=== PATIENT | male | born 1955 | race Caucasian/White ===

== ENCOUNTER 2017-11-01 00:23 | Day surgery (SDC) | payer OTHER ==
[~2017-11-01 00:23] MED LIST: ACET325 PO; ACET500 PO; ASPI325 PO; ASPI81CH PO; ATOR20 PO; Bactrim Ds Tab1 EACH PO; Biotin1 MG PO; CARV3.125; CARV6.25 PO; CEFU500T30 PO; CEPH500 PO; CHRO200 PO; CILO100; CILO100 PO; CIPR500 PO; CLOP75 PO; Cilostazol50 MG PO; FAMO40 PO; GABA300 PO; GABA400 PO; GABA800; GABA800 PO; GEMF600 PO; GLYB2.5 PO; HYDACE5 PO; HYDR1TAB94 PO; INSDET100 SC; LAVAP17G PO; LEVFLO500; LISI5 PO; Lisinopril2.5 MG PO; METF500; METF500 PO; METF500C PO; METO25ER PO; METR500; METR500 PO; ONDA4ODT MM; ONE DAILY COMP1 EACH PO; OXYACE5T PO; OXYC15ER PO; OXYC30 PO; PANT40 PO; PREG150 PO; Prinivil10 MG PO; SIME80CH PO; STOOL SOFTENER50 MG PO; SUCR1 PO; SULTRIDS PO; Simvastatin20 MG PO; Ultram50 MG PO; ZINC15 PO
== END 2017-11-01 22:49 | disposition home or self-care (01) ==
LOC: WOUND 00:23
DX: Z48.00 Encounter for change or removal of nonsurgical wound dressing (principal); L97.823 Non-pressure chronic ulcer of other part of left lower leg with necrosis of muscle; I70.242 Atherosclerosis of native arteries of left leg with ulceration of calf; F17.210 Nicotine dependence, cigarettes, uncomplicated
CPT/HCPCS: G0463

== ENCOUNTER 2017-11-06 11:00 | Day surgery (SDC) | payer OTHER | END 2017-11-06 13:30 | disposition home or self-care (01) | LOC: WOUND 11:00 | DX: Z48.00 Encounter for change or removal of nonsurgical wound dressing (principal); L97.823 Non-pressure chronic ulcer of other part of left lower leg with necrosis of muscle; I70.242 Atherosclerosis of native arteries of left leg with ulceration of calf; F17.208 Nicotine dependence, unspecified, with other nicotine-induced disorders | CPT/HCPCS: G0463 ==

== ENCOUNTER 2017-11-12 14:53 | Day surgery (SDC) | payer OTHER | END 2017-11-12 16:03 | disposition home or self-care (01) | LOC: WOUND 14:53 | PROC: 0HBLXZZ Excision of Left Lower Leg Skin, External Approach (ICD-10-PCS; principal; 2017-11-12) | DX: Z48.00 Encounter for change or removal of nonsurgical wound dressing (principal); L97.823 Non-pressure chronic ulcer of other part of left lower leg with necrosis of muscle; I70.242 Atherosclerosis of native arteries of left leg with ulceration of calf; F17.208 Nicotine dependence, unspecified, with other nicotine-induced disorders; E11.622 Type 2 diabetes mellitus with other skin ulcer ==

== ENCOUNTER 2017-11-19 14:58 | Day surgery (SDC) | payer OTHER | END 2017-11-19 22:55 | disposition home or self-care (01) | LOC: WOUND 14:58 | DX: Z48.00 Encounter for change or removal of nonsurgical wound dressing (principal); E11.622 Type 2 diabetes mellitus with other skin ulcer; L97.823 Non-pressure chronic ulcer of other part of left lower leg with necrosis of muscle; I70.242 Atherosclerosis of native arteries of left leg with ulceration of calf; F17.210 Nicotine dependence, cigarettes, uncomplicated | CPT/HCPCS: G0463 ==

== ENCOUNTER 2017-11-26 00:06 | Day surgery (SDC) | payer OTHER | END 2017-11-26 23:08 | disposition home or self-care (01) | LOC: LAB 00:06 | DX: Z48.00 Encounter for change or removal of nonsurgical wound dressing (principal); L97.823 Non-pressure chronic ulcer of other part of left lower leg with necrosis of muscle; I70.242 Atherosclerosis of native arteries of left leg with ulceration of calf; F17.210 Nicotine dependence, cigarettes, uncomplicated; E11.622 Type 2 diabetes mellitus with other skin ulcer | CPT/HCPCS: G0463 ==

== ENCOUNTER 2017-12-03 00:04 | Day surgery (SDC) | payer OTHER | END 2017-12-03 13:19 | disposition home or self-care (01) | LOC: WOUND 00:04 | DX: Z48.00 Encounter for change or removal of nonsurgical wound dressing (principal); E11.622 Type 2 diabetes mellitus with other skin ulcer; I70.242 Atherosclerosis of native arteries of left leg with ulceration of calf; L97.823 Non-pressure chronic ulcer of other part of left lower leg with necrosis of muscle; F17.210 Nicotine dependence, cigarettes, uncomplicated; E78.2 Mixed hyperlipidemia | CPT/HCPCS: 87070; 87077; 87186; 87205; G0463 ==

== ENCOUNTER 2017-12-10 00:12 | Day surgery (SDC) | payer OTHER | END 2017-12-10 12:14 | disposition home or self-care (01) | LOC: WOUND 00:12 | PROC: 0HBLXZZ Excision of Left Lower Leg Skin, External Approach (ICD-10-PCS; principal; 2017-12-10) | DX: Z48.00 Encounter for change or removal of nonsurgical wound dressing (principal); E11.622 Type 2 diabetes mellitus with other skin ulcer; L97.823 Non-pressure chronic ulcer of other part of left lower leg with necrosis of muscle; I70.242 Atherosclerosis of native arteries of left leg with ulceration of calf; F17.210 Nicotine dependence, cigarettes, uncomplicated | CPT/HCPCS: G0463 ==

== ENCOUNTER 2017-12-17 00:10 | Day surgery (SDC) | payer OTHER | END 2017-12-17 10:38 | disposition home or self-care (01) | LOC: WOUND 00:10 | DX: Z48.00 Encounter for change or removal of nonsurgical wound dressing (principal); E11.622 Type 2 diabetes mellitus with other skin ulcer; L97.823 Non-pressure chronic ulcer of other part of left lower leg with necrosis of muscle; F17.210 Nicotine dependence, cigarettes, uncomplicated | CPT/HCPCS: G0463 ==

== ENCOUNTER 2017-12-24 00:05 | Day surgery (SDC) | payer OTHER | END 2017-12-24 12:42 | disposition home or self-care (01) | LOC: WOUND 00:05 | PROC: 2W1RX6Z Compression of Left Lower Leg using Pressure Dressing (ICD-10-PCS; principal; 2017-12-24) | DX: Z48.00 Encounter for change or removal of nonsurgical wound dressing (principal); L97.823 Non-pressure chronic ulcer of other part of left lower leg with necrosis of muscle; I70.242 Atherosclerosis of native arteries of left leg with ulceration of calf; F17.210 Nicotine dependence, cigarettes, uncomplicated | CPT/HCPCS: G0463 ==

== ENCOUNTER 2017-12-27 00:25 | Day surgery (SDC) | payer OTHER | END 2017-12-27 23:14 | disposition home or self-care (01) | LOC: WOUND 00:25 | PROC: 2W1RX6Z Compression of Left Lower Leg using Pressure Dressing (ICD-10-PCS; principal; 2017-12-27) | DX: Z48.00 Encounter for change or removal of nonsurgical wound dressing (principal); L97.823 Non-pressure chronic ulcer of other part of left lower leg with necrosis of muscle; I70.242 Atherosclerosis of native arteries of left leg with ulceration of calf; F17.208 Nicotine dependence, unspecified, with other nicotine-induced disorders ==

== ENCOUNTER 2017-12-31 00:18 | Day surgery (SDC) | payer OTHER | END 2017-12-31 12:36 | disposition home or self-care (01) | LOC: WOUND 00:18 | PROC: 2W1RX6Z Compression of Left Lower Leg using Pressure Dressing (ICD-10-PCS; principal; 2017-12-31) | DX: Z48.00 Encounter for change or removal of nonsurgical wound dressing (principal); L97.823 Non-pressure chronic ulcer of other part of left lower leg with necrosis of muscle; I70.242 Atherosclerosis of native arteries of left leg with ulceration of calf; F17.210 Nicotine dependence, cigarettes, uncomplicated | CPT/HCPCS: G0463 ==

== ENCOUNTER 2018-01-08 03:29 | Day surgery (SDC) | payer OTHER | END 2018-01-08 23:22 | disposition home or self-care (01) | LOC: WOUND 03:29 | PROC: 2W1RX6Z Compression of Left Lower Leg using Pressure Dressing (ICD-10-PCS; principal; 2018-01-08) | DX: E11.622 Type 2 diabetes mellitus with other skin ulcer (principal); L97.823 Non-pressure chronic ulcer of other part of left lower leg with necrosis of muscle; I70.242 Atherosclerosis of native arteries of left leg with ulceration of calf; F17.210 Nicotine dependence, cigarettes, uncomplicated | CPT/HCPCS: G0463 ==

== ENCOUNTER 2018-01-11 12:50 | Day surgery (SDC) | payer OTHER | END 2018-01-11 22:59 | disposition home or self-care (01) | LOC: WOUND 12:50 | PROC: 2W1RX6Z Compression of Left Lower Leg using Pressure Dressing (ICD-10-PCS; principal; 2018-01-11) | DX: I70.242 Atherosclerosis of native arteries of left leg with ulceration of calf (principal); L97.823 Non-pressure chronic ulcer of other part of left lower leg with necrosis of muscle; F17.208 Nicotine dependence, unspecified, with other nicotine-induced disorders ==

== ENCOUNTER 2018-01-15 10:06 | Day surgery (SDC) | payer OTHER | END 2018-01-15 15:51 | disposition home or self-care (01) | LOC: WOUND 10:06 | PROC: 2W1RX6Z Compression of Left Lower Leg using Pressure Dressing (ICD-10-PCS; principal; 2018-01-15) | DX: E11.622 Type 2 diabetes mellitus with other skin ulcer (principal); L97.823 Non-pressure chronic ulcer of other part of left lower leg with necrosis of muscle; I70.242 Atherosclerosis of native arteries of left leg with ulceration of calf; F17.210 Nicotine dependence, cigarettes, uncomplicated | CPT/HCPCS: 99406; G0463 ==

== ENCOUNTER 2018-01-22 00:35 | Day surgery (SDC) | payer OTHER | END 2018-01-22 11:15 | disposition home or self-care (01) | LOC: WOUND 00:35 | PROC: 2W1RX6Z Compression of Left Lower Leg using Pressure Dressing (ICD-10-PCS; principal; 2018-01-22) | DX: Z48.00 Encounter for change or removal of nonsurgical wound dressing (principal); E11.622 Type 2 diabetes mellitus with other skin ulcer; L97.823 Non-pressure chronic ulcer of other part of left lower leg with necrosis of muscle; I70.242 Atherosclerosis of native arteries of left leg with ulceration of calf; F17.208 Nicotine dependence, unspecified, with other nicotine-induced disorders ==

== ENCOUNTER 2018-01-29 14:15 | Day surgery (SDC) | payer OTHER | END 2018-01-29 22:38 | disposition home or self-care (01) | LOC: WOUND 14:15 | PROC: 0HBLXZZ Excision of Left Lower Leg Skin, External Approach (ICD-10-PCS; principal; 2018-01-29) | DX: Z48.01 Encounter for change or removal of surgical wound dressing (principal); I70.242 Atherosclerosis of native arteries of left leg with ulceration of calf; E11.622 Type 2 diabetes mellitus with other skin ulcer; L97.822 Non-pressure chronic ulcer of other part of left lower leg with fat layer exposed; F17.208 Nicotine dependence, unspecified, with other nicotine-induced disorders | CPT/HCPCS: G0463 ==

== ENCOUNTER 2018-02-05 14:08 | Day surgery (SDC) | payer OTHER | END 2018-02-05 22:46 | disposition home or self-care (01) | LOC: WOUND 14:08 | DX: S81.802A Unspecified open wound, left lower leg, initial encounter (principal); E11.22 Type 2 diabetes mellitus with diabetic chronic kidney disease; L97.823 Non-pressure chronic ulcer of other part of left lower leg with necrosis of muscle; I70.242 Atherosclerosis of native arteries of left leg with ulceration of calf | CPT/HCPCS: G0463 ==

== ENCOUNTER 2018-02-12 10:46 | Day surgery (SDC) | payer OTHER | END 2018-02-12 11:43 | disposition home or self-care (01) | LOC: WOUND 10:46 | DX: Z48.00 Encounter for change or removal of nonsurgical wound dressing (principal); L97.823 Non-pressure chronic ulcer of other part of left lower leg with necrosis of muscle; I70.242 Atherosclerosis of native arteries of left leg with ulceration of calf; F17.208 Nicotine dependence, unspecified, with other nicotine-induced disorders | CPT/HCPCS: G0463 ==

== ENCOUNTER 2018-03-05 10:50 | Day surgery (SDC) | payer OTHER | END 2018-03-05 23:36 | disposition home or self-care (01) | LOC: WOUND 10:50 | PROC: 0HBLXZZ Excision of Left Lower Leg Skin, External Approach (ICD-10-PCS; principal; 2018-03-05) | PROC: 2W1RX6Z Compression of Left Lower Leg using Pressure Dressing (ICD-10-PCS; principal; 2018-03-05) | DX: L97.821 Non-pressure chronic ulcer of other part of left lower leg limited to breakdown of skin (principal); T81.89XA Other complications of procedures, not elsewhere classified, initial encounter; F17.208 Nicotine dependence, unspecified, with other nicotine-induced disorders ==

== ENCOUNTER 2018-03-07 11:36 | Day surgery (SDC) | payer OTHER | END 2018-03-07 23:18 | disposition home or self-care (01) | LOC: WOUND 11:36 | PROC: 2W1RX6Z Compression of Left Lower Leg using Pressure Dressing (ICD-10-PCS; principal; 2018-03-07) | DX: S81.802A Unspecified open wound, left lower leg, initial encounter (principal); L97.823 Non-pressure chronic ulcer of other part of left lower leg with necrosis of muscle; I70.242 Atherosclerosis of native arteries of left leg with ulceration of calf; F17.210 Nicotine dependence, cigarettes, uncomplicated ==

== ENCOUNTER 2018-03-12 10:30 | Day surgery (SDC) | payer OTHER | END 2018-03-12 22:47 | disposition home or self-care (01) | LOC: WOUND 10:30 | PROC: 2W1RX6Z Compression of Left Lower Leg using Pressure Dressing (ICD-10-PCS; principal; 2018-03-12) | DX: E11.622 Type 2 diabetes mellitus with other skin ulcer (principal); L97.823 Non-pressure chronic ulcer of other part of left lower leg with necrosis of muscle; F17.210 Nicotine dependence, cigarettes, uncomplicated | CPT/HCPCS: 82947; G0463 ==

== ENCOUNTER 2018-04-02 11:00 | Day surgery (SDC) | payer OTHER | END 2018-04-02 12:09 | disposition home or self-care (01) | LOC: WOUND 11:00 | PROC: 2W1RX6Z Compression of Left Lower Leg using Pressure Dressing (ICD-10-PCS; principal; 2018-04-02) | DX: E11.622 Type 2 diabetes mellitus with other skin ulcer (principal); L97.823 Non-pressure chronic ulcer of other part of left lower leg with necrosis of muscle; F17.210 Nicotine dependence, cigarettes, uncomplicated | CPT/HCPCS: G0463 ==

== ENCOUNTER 2018-04-16 11:00 | Day surgery (SDC) | payer OTHER | END 2018-04-16 12:27 | disposition home or self-care (01) | LOC: WOUND 11:00 | PROC: 0HBLXZZ Excision of Left Lower Leg Skin, External Approach (ICD-10-PCS; principal; 2018-04-16) | DX: S81.802A Unspecified open wound, left lower leg, initial encounter (principal); F17.210 Nicotine dependence, cigarettes, uncomplicated; I70.242 Atherosclerosis of native arteries of left leg with ulceration of calf | CPT/HCPCS: G0463 ==

== ENCOUNTER → 2018-04-30 | Outpatient (CLI) | payer OTHER | LOC: LAB SHORT 07:00 → LAB 07:00 | DX: K52.9 Noninfective gastroenteritis and colitis, unspecified (principal) | CPT/HCPCS: 87493 ==

== ENCOUNTER 2018-05-07 11:30 | Day surgery (SDC) | payer OTHER | END 2018-05-07 12:42 | disposition home or self-care (01) | LOC: WOUND | DX: Z48.00 Encounter for change or removal of nonsurgical wound dressing (principal); I70.242 Atherosclerosis of native arteries of left leg with ulceration of calf; F17.210 Nicotine dependence, cigarettes, uncomplicated; S81.802A Unspecified open wound, left lower leg, initial encounter | CPT/HCPCS: G0463 ==

== ENCOUNTER 2018-05-17 10:24 | Day surgery (SDC) | payer OTHER | END 2018-05-17 12:49 | disposition home or self-care (01) | LOC: WOUND 10:24 | DX: I70.242 Atherosclerosis of native arteries of left leg with ulceration of calf (principal); E11.622 Type 2 diabetes mellitus with other skin ulcer; L97.223 Non-pressure chronic ulcer of left calf with necrosis of muscle; F17.218 Nicotine dependence, cigarettes, with other nicotine-induced disorders; R60.0 Localized edema; Z59.0 Homelessness ==

== ENCOUNTER 2018-05-21 10:30 | Day surgery (SDC) | payer OTHER | END 2018-05-21 11:10 | disposition home or self-care (01) | LOC: WOUND 10:30 | PROC: 2W1RX6Z Compression of Left Lower Leg using Pressure Dressing (ICD-10-PCS; principal; 2018-05-21) | DX: S81.802A Unspecified open wound, left lower leg, initial encounter (principal); E11.9 Type 2 diabetes mellitus without complications; F17.210 Nicotine dependence, cigarettes, uncomplicated ==

== ENCOUNTER 2018-06-14 13:30 | Day surgery (SDC) | payer OTHER | END 2018-06-14 13:54 | disposition home or self-care (01) | LOC: ATC 13:30 | DX: S81.802A Unspecified open wound, left lower leg, initial encounter (principal); E11.9 Type 2 diabetes mellitus without complications; I10 Essential (primary) hypertension | CPT/HCPCS: 99211 ==

== ENCOUNTER 2018-06-18 00:46 | Day surgery (SDC) | payer OTHER | END 2018-06-18 10:22 | disposition home or self-care (01) | LOC: ATC 00:46 | DX: S81.802A Unspecified open wound, left lower leg, initial encounter (principal); E03.9 Hypothyroidism, unspecified | CPT/HCPCS: 99211 ==

== ENCOUNTER 2018-06-25 00:06 | Day surgery (SDC) | payer OTHER | END 2018-06-25 10:38 | disposition home or self-care (01) | LOC: ATC 00:06 | DX: S81.802A Unspecified open wound, left lower leg, initial encounter (principal); E03.9 Hypothyroidism, unspecified; E78.2 Mixed hyperlipidemia; I10 Essential (primary) hypertension; E11.9 Type 2 diabetes mellitus without complications | CPT/HCPCS: 99214 ==

== ENCOUNTER 2018-06-28 00:15 | Day surgery (SDC) | payer OTHER | END 2018-06-28 22:46 | disposition home or self-care (01) | LOC: ATC 00:15 | DX: Z48.00 Encounter for change or removal of nonsurgical wound dressing (principal); S81.802A Unspecified open wound, left lower leg, initial encounter | CPT/HCPCS: 99214 ==

== ENCOUNTER 2018-07-01 01:41 | Day surgery (SDC) | payer OTHER | END 2018-07-01 10:07 | disposition home or self-care (01) | LOC: ATC 01:41 | DX: Z48.00 Encounter for change or removal of nonsurgical wound dressing (principal); S81.802A Unspecified open wound, left lower leg, initial encounter | CPT/HCPCS: 99214 ==

== ENCOUNTER 2018-07-04 00:13 | Day surgery (SDC) | payer OTHER | END 2018-07-04 10:05 | disposition home or self-care (01) | LOC: ATC 00:13 | DX: S81.802A Unspecified open wound, left lower leg, initial encounter (principal); E11.51 Type 2 diabetes mellitus with diabetic peripheral angiopathy without gangrene; E03.9 Hypothyroidism, unspecified; E78.2 Mixed hyperlipidemia; K52.9 Noninfective gastroenteritis and colitis, unspecified; F17.210 Nicotine dependence, cigarettes, uncomplicated; I25.10 Atherosclerotic heart disease of native coronary artery without angina pectoris; I10 Essential (primary) hypertension | CPT/HCPCS: 99214 ==

== ENCOUNTER 2018-07-12 00:20 | Day surgery (SDC) | payer OTHER | END 2018-07-12 22:58 | disposition home or self-care (01) | LOC: ATC 00:20 | DX: S81.802A Unspecified open wound, left lower leg, initial encounter (principal); E03.9 Hypothyroidism, unspecified | CPT/HCPCS: 99213 ==

== ENCOUNTER 2018-07-16 | Day surgery (SDC) | payer OTHER | END 2018-07-16 22:54 | disposition home or self-care (01) | LOC: ATC | DX: S81.802A Unspecified open wound, left lower leg, initial encounter (principal); E11.9 Type 2 diabetes mellitus without complications | CPT/HCPCS: 99213 ==

== ENCOUNTER 2018-07-19 00:07 | Day surgery (SDC) | payer OTHER | END 2018-07-19 16:09 | disposition home or self-care (01) | LOC: ATC 00:07 | DX: S81.802A Unspecified open wound, left lower leg, initial encounter (principal); E11.51 Type 2 diabetes mellitus with diabetic peripheral angiopathy without gangrene; E11.42 Type 2 diabetes mellitus with diabetic polyneuropathy | CPT/HCPCS: 99214 ==

== ENCOUNTER 2018-07-23 14:47 | Day surgery (SDC) | payer OTHER | END 2018-07-23 22:46 | disposition home or self-care (01) | LOC: ATC 14:47 | DX: S81.802A Unspecified open wound, left lower leg, initial encounter (principal); X58.XXXA Exposure to other specified factors, initial encounter; E11.42 Type 2 diabetes mellitus with diabetic polyneuropathy; E11.51 Type 2 diabetes mellitus with diabetic peripheral angiopathy without gangrene; E03.9 Hypothyroidism, unspecified; M81.0 Age-related osteoporosis without current pathological fracture; E78.2 Mixed hyperlipidemia; F17.210 Nicotine dependence, cigarettes, uncomplicated; E55.9 Vitamin D deficiency, unspecified; N40.0 Benign prostatic hyperplasia without lower urinary tract symptoms; G89.4 Chronic pain syndrome; M54.5 Low back pain; I25.10 Atherosclerotic heart disease of native coronary artery without angina pectoris; I10 Essential (primary) hypertension; Z79.84 Long term (current) use of oral hypoglycemic drugs ==

== ENCOUNTER 2018-07-26 11:30 | Day surgery (SDC) | payer OTHER | END 2018-07-26 14:00 | disposition home or self-care (01) | LOC: WOUND 11:30 | DX: L97.822 Non-pressure chronic ulcer of other part of left lower leg with fat layer exposed (principal); E78.2 Mixed hyperlipidemia; I73.9 Peripheral vascular disease, unspecified; E55.9 Vitamin D deficiency, unspecified; G89.4 Chronic pain syndrome; I25.10 Atherosclerotic heart disease of native coronary artery without angina pectoris; G62.9 Polyneuropathy, unspecified; Z95.818 Presence of other cardiac implants and grafts | CPT/HCPCS: G0463 ==

== ENCOUNTER 2018-07-30 09:00 | Day surgery (SDC) | payer OTHER | END 2018-07-30 10:50 | disposition home or self-care (01) | LOC: WOUND 09:00 | DX: L97.822 Non-pressure chronic ulcer of other part of left lower leg with fat layer exposed (principal); E78.2 Mixed hyperlipidemia; I73.9 Peripheral vascular disease, unspecified; Z95.818 Presence of other cardiac implants and grafts; E55.9 Vitamin D deficiency, unspecified; G89.4 Chronic pain syndrome; G62.9 Polyneuropathy, unspecified; I25.10 Atherosclerotic heart disease of native coronary artery without angina pectoris ==

== ENCOUNTER 2018-08-02 00:17 | Day surgery (SDC) | payer OTHER | END 2018-08-02 22:41 | disposition home or self-care (01) | LOC: WOUND 00:17 | DX: L97.822 Non-pressure chronic ulcer of other part of left lower leg with fat layer exposed (principal); I87.2 Venous insufficiency (chronic) (peripheral) ==

== ENCOUNTER 2018-08-07 | Day surgery (SDC) | payer OTHER | END 2018-08-07 22:45 | disposition home or self-care (01) | LOC: WOUND | PROC: 2W1MX6Z Compression of Left Lower Extremity using Pressure Dressing (ICD-10-PCS; principal; 2018-08-07) | DX: L97.822 Non-pressure chronic ulcer of other part of left lower leg with fat layer exposed (principal); I73.9 Peripheral vascular disease, unspecified; E78.2 Mixed hyperlipidemia; Z95.818 Presence of other cardiac implants and grafts; E55.9 Vitamin D deficiency, unspecified; G89.4 Chronic pain syndrome; I25.10 Atherosclerotic heart disease of native coronary artery without angina pectoris; G62.9 Polyneuropathy, unspecified ==

== ENCOUNTER 2018-08-30 00:33 | Day surgery (SDC) | payer OTHER | END 2018-08-30 22:47 | disposition home or self-care (01) | LOC: WOUND 00:33 | PROC: 2W1MX6Z Compression of Left Lower Extremity using Pressure Dressing (ICD-10-PCS; principal; 2018-08-30) | DX: E11.622 Type 2 diabetes mellitus with other skin ulcer (principal); L97.822 Non-pressure chronic ulcer of other part of left lower leg with fat layer exposed; I73.9 Peripheral vascular disease, unspecified; E78.2 Mixed hyperlipidemia; I25.10 Atherosclerotic heart disease of native coronary artery without angina pectoris; G89.4 Chronic pain syndrome ==

== ENCOUNTER 2018-09-03 07:51 | Day surgery (SDC) | payer OTHER | END 2018-09-04 22:54 | disposition home or self-care (01) | LOC: WOUND 07:51 | DX: L97.822 Non-pressure chronic ulcer of other part of left lower leg with fat layer exposed (principal); E11.51 Type 2 diabetes mellitus with diabetic peripheral angiopathy without gangrene; F10.20 Alcohol dependence, uncomplicated; E78.2 Mixed hyperlipidemia; E55.9 Vitamin D deficiency, unspecified; G89.4 Chronic pain syndrome; I25.10 Atherosclerotic heart disease of native coronary artery without angina pectoris; E11.42 Type 2 diabetes mellitus with diabetic polyneuropathy; Z95.818 Presence of other cardiac implants and grafts ==

== ENCOUNTER 2018-09-06 01:03 | Day surgery (SDC) | payer OTHER | END 2018-09-06 23:03 | disposition home or self-care (01) | LOC: WOUND 01:03 | PROC: 2W1MX6Z Compression of Left Lower Extremity using Pressure Dressing (ICD-10-PCS; principal; 2018-09-06) | DX: E11.622 Type 2 diabetes mellitus with other skin ulcer (principal); L97.829 Non-pressure chronic ulcer of other part of left lower leg with unspecified severity; I73.9 Peripheral vascular disease, unspecified; F10.20 Alcohol dependence, uncomplicated; E78.2 Mixed hyperlipidemia ==

== ENCOUNTER 2018-10-22 00:09 | Day surgery (SDC) | payer OTHER | END 2018-10-22 22:41 | disposition home or self-care (01) | LOC: WOUND 00:09 | DX: L97.822 Non-pressure chronic ulcer of other part of left lower leg with fat layer exposed (principal); I73.9 Peripheral vascular disease, unspecified; F10.20 Alcohol dependence, uncomplicated; E11.9 Type 2 diabetes mellitus without complications; Z95.818 Presence of other cardiac implants and grafts; G89.4 Chronic pain syndrome; I25.10 Atherosclerotic heart disease of native coronary artery without angina pectoris; G62.9 Polyneuropathy, unspecified | CPT/HCPCS: G0463 ==

== ENCOUNTER 2018-11-01 11:15 | Day surgery (SDC) | payer OTHER | END 2018-11-01 23:05 | disposition home or self-care (01) | LOC: WOUND 11:15 | DX: L97.822 Non-pressure chronic ulcer of other part of left lower leg with fat layer exposed (principal); I73.9 Peripheral vascular disease, unspecified; F10.20 Alcohol dependence, uncomplicated; E11.9 Type 2 diabetes mellitus without complications; G89.4 Chronic pain syndrome; I25.10 Atherosclerotic heart disease of native coronary artery without angina pectoris; G62.9 Polyneuropathy, unspecified; Z72.0 Tobacco use; Z95.818 Presence of other cardiac implants and grafts | CPT/HCPCS: 82947 ==

== ENCOUNTER 2018-11-08 11:02 | Day surgery (SDC) | payer OTHER | END 2018-11-08 22:41 | disposition home or self-care (01) | LOC: WOUND 11:02 | PROC: 0HBLXZZ Excision of Left Lower Leg Skin, External Approach (ICD-10-PCS; principal; 2018-11-08) | DX: E11.622 Type 2 diabetes mellitus with other skin ulcer (principal); L97.822 Non-pressure chronic ulcer of other part of left lower leg with fat layer exposed; I73.9 Peripheral vascular disease, unspecified; I10 Essential (primary) hypertension; E11.42 Type 2 diabetes mellitus with diabetic polyneuropathy ==

== ENCOUNTER 2018-11-15 00:04 | Day surgery (SDC) | payer OTHER | END 2018-11-15 22:48 | disposition home or self-care (01) | LOC: WOUND 00:04 | DX: L97.822 Non-pressure chronic ulcer of other part of left lower leg with fat layer exposed (principal); I73.9 Peripheral vascular disease, unspecified; F10.20 Alcohol dependence, uncomplicated; E11.9 Type 2 diabetes mellitus without complications; G89.4 Chronic pain syndrome; I25.10 Atherosclerotic heart disease of native coronary artery without angina pectoris; G62.9 Polyneuropathy, unspecified; Z72.0 Tobacco use; Z95.818 Presence of other cardiac implants and grafts ==

== ENCOUNTER 2018-11-22 00:58 | Day surgery (SDC) | payer OTHER | END 2018-11-22 23:59 | disposition home or self-care (01) | LOC: WOUND 00:58 | DX: Z48.00 Encounter for change or removal of nonsurgical wound dressing (principal); E11.622 Type 2 diabetes mellitus with other skin ulcer; L97.822 Non-pressure chronic ulcer of other part of left lower leg with fat layer exposed | CPT/HCPCS: G0463 ==

== ENCOUNTER 2018-11-29 10:15 | Day surgery (SDC) | payer OTHER | END 2018-11-29 23:08 | disposition home or self-care (01) | LOC: WOUND 10:15 | DX: E11.622 Type 2 diabetes mellitus with other skin ulcer (principal); L97.822 Non-pressure chronic ulcer of other part of left lower leg with fat layer exposed; I87.2 Venous insufficiency (chronic) (peripheral); E11.51 Type 2 diabetes mellitus with diabetic peripheral angiopathy without gangrene; E11.42 Type 2 diabetes mellitus with diabetic polyneuropathy; F10.20 Alcohol dependence, uncomplicated; Z95.818 Presence of other cardiac implants and grafts; G89.4 Chronic pain syndrome; I25.10 Atherosclerotic heart disease of native coronary artery without angina pectoris; E78.2 Mixed hyperlipidemia; E55.9 Vitamin D deficiency, unspecified; I10 Essential (primary) hypertension; F17.210 Nicotine dependence, cigarettes, uncomplicated ==

== ENCOUNTER 2018-12-06 10:15 | Day surgery (SDC) | payer OTHER | END 2018-12-06 22:51 | disposition home or self-care (01) | LOC: WOUND 10:15 | DX: E11.622 Type 2 diabetes mellitus with other skin ulcer (principal); L97.822 Non-pressure chronic ulcer of other part of left lower leg with fat layer exposed; E11.51 Type 2 diabetes mellitus with diabetic peripheral angiopathy without gangrene; F10.20 Alcohol dependence, uncomplicated; G89.4 Chronic pain syndrome; I25.10 Atherosclerotic heart disease of native coronary artery without angina pectoris; E11.42 Type 2 diabetes mellitus with diabetic polyneuropathy ==

== ENCOUNTER 2018-12-12 10:40 | Day surgery (SDC) | payer OTHER | END 2018-12-12 23:01 | disposition home or self-care (01) | LOC: WOUND 10:40 | DX: E11.622 Type 2 diabetes mellitus with other skin ulcer (principal); L97.823 Non-pressure chronic ulcer of other part of left lower leg with necrosis of muscle; E11.51 Type 2 diabetes mellitus with diabetic peripheral angiopathy without gangrene; F10.20 Alcohol dependence, uncomplicated; Z95.818 Presence of other cardiac implants and grafts; E11.42 Type 2 diabetes mellitus with diabetic polyneuropathy; G89.4 Chronic pain syndrome; I25.10 Atherosclerotic heart disease of native coronary artery without angina pectoris; E78.2 Mixed hyperlipidemia; E55.9 Vitamin D deficiency, unspecified ==

== ENCOUNTER 2019-01-02 14:15 | Day surgery (SDC) | payer OTHER | END 2019-01-03 13:23 | disposition home or self-care (01) | LOC: WOUND 14:15 | DX: L97.822 Non-pressure chronic ulcer of other part of left lower leg with fat layer exposed (principal); I73.9 Peripheral vascular disease, unspecified; F10.20 Alcohol dependence, uncomplicated; E11.9 Type 2 diabetes mellitus without complications; Z95.818 Presence of other cardiac implants and grafts; G89.4 Chronic pain syndrome; I25.10 Atherosclerotic heart disease of native coronary artery without angina pectoris; G62.9 Polyneuropathy, unspecified; Z72.0 Tobacco use; Z79.82 Long term (current) use of aspirin; Z79.84 Long term (current) use of oral hypoglycemic drugs ==

== ENCOUNTER 2019-01-30 00:10 | Day surgery (SDC) | payer OTHER | END 2019-01-30 23:00 | disposition home or self-care (01) | LOC: WOUND 00:10 | DX: E11.622 Type 2 diabetes mellitus with other skin ulcer (principal); L97.822 Non-pressure chronic ulcer of other part of left lower leg with fat layer exposed; L97.129 Non-pressure chronic ulcer of left thigh with unspecified severity; E11.42 Type 2 diabetes mellitus with diabetic polyneuropathy; E11.22 Type 2 diabetes mellitus with diabetic chronic kidney disease; N18.6 End stage renal disease; I25.10 Atherosclerotic heart disease of native coronary artery without angina pectoris; I73.9 Peripheral vascular disease, unspecified; F10.20 Alcohol dependence, uncomplicated | CPT/HCPCS: G0463 ==

== ENCOUNTER 2019-02-12 11:01 | Day surgery (SDC) | payer OTHER ==
[~2019-02-12 11:01] MED LIST changes: +B-121000 MC2 PO; +CALC.25 PO; +CARV25 PO; +CHOL10002 PO; +CLON.1 PO; +Glyburide5 MG PO; +Oxycontin20 MG PO; +Questran4 GM PO; +TAMS.4ER PO
== END 2019-02-12 23:05 | disposition home or self-care (01) ==
LOC: WOUND 11:01
DX: E11.622 Type 2 diabetes mellitus with other skin ulcer (principal); L97.822 Non-pressure chronic ulcer of other part of left lower leg with fat layer exposed; L97.129 Non-pressure chronic ulcer of left thigh with unspecified severity; I25.10 Atherosclerotic heart disease of native coronary artery without angina pectoris; E11.51 Type 2 diabetes mellitus with diabetic peripheral angiopathy without gangrene; E11.22 Type 2 diabetes mellitus with diabetic chronic kidney disease; N18.6 End stage renal disease; E11.40 Type 2 diabetes mellitus with diabetic neuropathy, unspecified; F10.20 Alcohol dependence, uncomplicated; Z95.818 Presence of other cardiac implants and grafts

== ENCOUNTER 2019-02-27 07:22 | Day surgery (SDC) | payer OTHER ==
[~2019-02-27] VITALS: Ht 188 cm; Wt 100.0 kg
--- NOTE | 2019-02-27 14:34 | NUR ---
REMAINS AWAKE; CONVERSIVE WITH EXTENDED CONTEXTUAL DISCUSSIONS PER BASELINE. BOTH R AND L FEMORAL SITES REMAIN SOFT, CLEAN AND DRY (NO SUGGESTIVE OF OOZE/HEMATOMA) FOLLOWING HEMOSTASIS IN THE LAB. DISCHARGE INFORMATION INCLUSIVE OF TEACHING PROVIDED - ORALLY AND WRITTEN. NO CHANGE IN MEDICATIONS. TEACHING COMPRISED OF HIGHLIGHTED AREAS RELATIVE TO SITE PROTECTION AGAINST BLEEDING OR INFECTION. QUESTIONS ANSWERED. SIGNED ACKNOWLEDGMENT OBTAINED. IV DC'D WITH CANNULA TIP INTACT. FOLDED 2X2 GAUZE APPLIED WITH LIGHT COBAN WRAP. STATES SLIGHT MUSCLE TIGHTNESS TO BODY FROM PRIOR BEDREST PERIOD ON BACK, OTHERWISE DRESSES SELF WITHOUT IMBALANCE OR REQUEST FOR AID.\ WHEELCHAIR ESCORT TO EXIT FOR DISCHARGE. NO KNOWN COMPLICATIONS EVIDENT. PT WITHOUT VOICED CONCERNS.
== END 2019-02-27 14:30 | disposition home or self-care (01) ==
LOC: MHTC 07:22
DX: E11.51 Type 2 diabetes mellitus with diabetic peripheral angiopathy without gangrene (principal); I10 Essential (primary) hypertension; F17.210 Nicotine dependence, cigarettes, uncomplicated; I87.2 Venous insufficiency (chronic) (peripheral); E11.42 Type 2 diabetes mellitus with diabetic polyneuropathy; Z79.82 Long term (current) use of aspirin; Z79.899 Other long term (current) drug therapy
CPT/HCPCS: 99152; 99153; C1725; C1760; C1769; C1885; C1887; C1894; J1644; J2250; J3010; J7030; Q9967

== ENCOUNTER 2019-02-28 13:30 | Day surgery (SDC) | payer OTHER | END 2019-02-28 23:00 | disposition home or self-care (01) | LOC: WOUND 13:30 | DX: E11.622 Type 2 diabetes mellitus with other skin ulcer (principal); L97.122 Non-pressure chronic ulcer of left thigh with fat layer exposed; L97.822 Non-pressure chronic ulcer of other part of left lower leg with fat layer exposed; E11.51 Type 2 diabetes mellitus with diabetic peripheral angiopathy without gangrene; E11.42 Type 2 diabetes mellitus with diabetic polyneuropathy; I10 Essential (primary) hypertension; I25.10 Atherosclerotic heart disease of native coronary artery without angina pectoris; F10.20 Alcohol dependence, uncomplicated; G89.4 Chronic pain syndrome; Z95.818 Presence of other cardiac implants and grafts ==

== ENCOUNTER 2019-03-21 00:34 | Day surgery (SDC) | payer OTHER | END 2019-03-21 23:14 | disposition home or self-care (01) | LOC: WOUND 00:34 | DX: E11.621 Type 2 diabetes mellitus with foot ulcer (principal); E11.622 Type 2 diabetes mellitus with other skin ulcer; L97.522 Non-pressure chronic ulcer of other part of left foot with fat layer exposed; L97.512 Non-pressure chronic ulcer of other part of right foot with fat layer exposed; L97.822 Non-pressure chronic ulcer of other part of left lower leg with fat layer exposed; L97.122 Non-pressure chronic ulcer of left thigh with fat layer exposed; E11.40 Type 2 diabetes mellitus with diabetic neuropathy, unspecified; E11.42 Type 2 diabetes mellitus with diabetic polyneuropathy; E11.51 Type 2 diabetes mellitus with diabetic peripheral angiopathy without gangrene; I25.10 Atherosclerotic heart disease of native coronary artery without angina pectoris; E11.22 Type 2 diabetes mellitus with diabetic chronic kidney disease; N18.6 End stage renal disease; F10.20 Alcohol dependence, uncomplicated; G89.4 Chronic pain syndrome; Z95.818 Presence of other cardiac implants and grafts ==

== ENCOUNTER 2019-03-27 07:59 | Day surgery (SDC) | payer OTHER | END 2019-03-27 23:21 | disposition home or self-care (01) | LOC: WOUND 07:59 | DX: E11.621 Type 2 diabetes mellitus with foot ulcer (principal); E11.622 Type 2 diabetes mellitus with other skin ulcer; L97.822 Non-pressure chronic ulcer of other part of left lower leg with fat layer exposed; L97.121 Non-pressure chronic ulcer of left thigh limited to breakdown of skin; L97.521 Non-pressure chronic ulcer of other part of left foot limited to breakdown of skin; I12.0 Hypertensive chronic kidney disease with stage 5 chronic kidney disease or end stage renal disease; E11.22 Type 2 diabetes mellitus with diabetic chronic kidney disease; N18.6 End stage renal disease; E11.51 Type 2 diabetes mellitus with diabetic peripheral angiopathy without gangrene; I25.10 Atherosclerotic heart disease of native coronary artery without angina pectoris; E11.42 Type 2 diabetes mellitus with diabetic polyneuropathy; E11.40 Type 2 diabetes mellitus with diabetic neuropathy, unspecified; F10.20 Alcohol dependence, uncomplicated; E78.2 Mixed hyperlipidemia; E55.9 Vitamin D deficiency, unspecified; G89.4 Chronic pain syndrome; Z95.818 Presence of other cardiac implants and grafts ==

== ENCOUNTER 2019-04-03 11:17 | Day surgery (SDC) | payer OTHER ==
[~2019-04-03 11:17] MED LIST changes: -CARV25 PO; -CHOL10002 PO; +Coreg12.5 MG PO; +Metformin HCl750 MG PO; +OXYC10ER PO; -Oxycontin20 MG PO
== END 2019-04-03 23:14 | disposition home or self-care (01) ==
LOC: WOUND 11:17
DX: E11.621 Type 2 diabetes mellitus with foot ulcer (principal); L97.522 Non-pressure chronic ulcer of other part of left foot with fat layer exposed; E11.622 Type 2 diabetes mellitus with other skin ulcer; L97.822 Non-pressure chronic ulcer of other part of left lower leg with fat layer exposed; L97.121 Non-pressure chronic ulcer of left thigh limited to breakdown of skin; E11.51 Type 2 diabetes mellitus with diabetic peripheral angiopathy without gangrene; E11.42 Type 2 diabetes mellitus with diabetic polyneuropathy; I25.10 Atherosclerotic heart disease of native coronary artery without angina pectoris; I10 Essential (primary) hypertension; F10.20 Alcohol dependence, uncomplicated; G89.4 Chronic pain syndrome; Z95.818 Presence of other cardiac implants and grafts
CPT/HCPCS: 87070; 87075; 87147; 87205

== ENCOUNTER 2019-04-10 11:10 | Day surgery (SDC) | payer OTHER | END 2019-04-10 22:42 | disposition home or self-care (01) | LOC: WOUND 11:10 | DX: E11.621 Type 2 diabetes mellitus with foot ulcer (principal); L97.521 Non-pressure chronic ulcer of other part of left foot limited to breakdown of skin; E11.42 Type 2 diabetes mellitus with diabetic polyneuropathy; E11.51 Type 2 diabetes mellitus with diabetic peripheral angiopathy without gangrene; I25.10 Atherosclerotic heart disease of native coronary artery without angina pectoris; I10 Essential (primary) hypertension; L97.822 Non-pressure chronic ulcer of other part of left lower leg with fat layer exposed; I73.9 Peripheral vascular disease, unspecified; G62.9 Polyneuropathy, unspecified; Z95.818 Presence of other cardiac implants and grafts | CPT/HCPCS: 73630 ==

== ENCOUNTER 2019-04-14 11:11 | Day surgery (SDC) | payer OTHER | END 2019-04-14 22:41 | disposition home or self-care (01) | LOC: WOUND 11:11 | DX: E11.622 Type 2 diabetes mellitus with other skin ulcer (principal); L97.822 Non-pressure chronic ulcer of other part of left lower leg with fat layer exposed; L97.121 Non-pressure chronic ulcer of left thigh limited to breakdown of skin; E11.621 Type 2 diabetes mellitus with foot ulcer; L97.521 Non-pressure chronic ulcer of other part of left foot limited to breakdown of skin; E11.51 Type 2 diabetes mellitus with diabetic peripheral angiopathy without gangrene; F10.20 Alcohol dependence, uncomplicated; E11.42 Type 2 diabetes mellitus with diabetic polyneuropathy; G89.4 Chronic pain syndrome; I25.10 Atherosclerotic heart disease of native coronary artery without angina pectoris; E78.2 Mixed hyperlipidemia; E55.9 Vitamin D deficiency, unspecified; Z95.818 Presence of other cardiac implants and grafts | CPT/HCPCS: G0463 ==

== ENCOUNTER 2019-04-17 00:48 | Day surgery (SDC) | payer OTHER | END 2019-04-17 23:26 | disposition home or self-care (01) | LOC: WOUND 00:48 | DX: E11.621 Type 2 diabetes mellitus with foot ulcer (principal); E11.622 Type 2 diabetes mellitus with other skin ulcer; L97.521 Non-pressure chronic ulcer of other part of left foot limited to breakdown of skin; L97.821 Non-pressure chronic ulcer of other part of left lower leg limited to breakdown of skin; L97.121 Non-pressure chronic ulcer of left thigh limited to breakdown of skin; E11.42 Type 2 diabetes mellitus with diabetic polyneuropathy; E11.51 Type 2 diabetes mellitus with diabetic peripheral angiopathy without gangrene; I25.10 Atherosclerotic heart disease of native coronary artery without angina pectoris; I73.9 Peripheral vascular disease, unspecified; I12.0 Hypertensive chronic kidney disease with stage 5 chronic kidney disease or end stage renal disease; E11.40 Type 2 diabetes mellitus with diabetic neuropathy, unspecified; E11.22 Type 2 diabetes mellitus with diabetic chronic kidney disease; N18.6 End stage renal disease; I10 Essential (primary) hypertension; F10.20 Alcohol dependence, uncomplicated; E78.2 Mixed hyperlipidemia; E55.9 Vitamin D deficiency, unspecified; G89.4 Chronic pain syndrome; Z95.818 Presence of other cardiac implants and grafts; Z79.899 Other long term (current) drug therapy; Z79.82 Long term (current) use of aspirin; Z79.84 Long term (current) use of oral hypoglycemic drugs ==

== ENCOUNTER 2019-05-01 11:10 | Day surgery (SDC) | payer OTHER | END 2019-05-01 23:06 | disposition home or self-care (01) | LOC: WOUND 11:10 | DX: E11.621 Type 2 diabetes mellitus with foot ulcer (principal); E11.622 Type 2 diabetes mellitus with other skin ulcer; L97.822 Non-pressure chronic ulcer of other part of left lower leg with fat layer exposed; L97.521 Non-pressure chronic ulcer of other part of left foot limited to breakdown of skin; E11.51 Type 2 diabetes mellitus with diabetic peripheral angiopathy without gangrene; I73.9 Peripheral vascular disease, unspecified; E11.40 Type 2 diabetes mellitus with diabetic neuropathy, unspecified; I12.0 Hypertensive chronic kidney disease with stage 5 chronic kidney disease or end stage renal disease; E11.22 Type 2 diabetes mellitus with diabetic chronic kidney disease; N18.6 End stage renal disease; I25.10 Atherosclerotic heart disease of native coronary artery without angina pectoris; F10.20 Alcohol dependence, uncomplicated; F34.9 Persistent mood [affective] disorder, unspecified; G89.4 Chronic pain syndrome; Z95.818 Presence of other cardiac implants and grafts | CPT/HCPCS: 87071; 87075; 87205; G0463 ==

== ENCOUNTER 2019-05-06 13:09 | Day surgery (SDC) | payer OTHER | END 2019-05-06 23:42 | disposition home or self-care (01) | LOC: WOUND 13:09 | DX: E11.621 Type 2 diabetes mellitus with foot ulcer (principal); E11.622 Type 2 diabetes mellitus with other skin ulcer; L97.521 Non-pressure chronic ulcer of other part of left foot limited to breakdown of skin; L97.822 Non-pressure chronic ulcer of other part of left lower leg with fat layer exposed; E11.51 Type 2 diabetes mellitus with diabetic peripheral angiopathy without gangrene; I73.9 Peripheral vascular disease, unspecified; E11.42 Type 2 diabetes mellitus with diabetic polyneuropathy; E11.22 Type 2 diabetes mellitus with diabetic chronic kidney disease; N18.6 End stage renal disease; I25.10 Atherosclerotic heart disease of native coronary artery without angina pectoris; F34.9 Persistent mood [affective] disorder, unspecified; G89.4 Chronic pain syndrome; F10.20 Alcohol dependence, uncomplicated; Z95.818 Presence of other cardiac implants and grafts | CPT/HCPCS: 87071; 87075; 87205 ==

== ENCOUNTER 2019-05-15 10:48 | Day surgery (SDC) | payer OTHER | END 2019-05-15 22:56 | disposition home or self-care (01) | LOC: WOUND 10:48 | DX: E11.621 Type 2 diabetes mellitus with foot ulcer (principal); E11.622 Type 2 diabetes mellitus with other skin ulcer; L97.522 Non-pressure chronic ulcer of other part of left foot with fat layer exposed; L97.822 Non-pressure chronic ulcer of other part of left lower leg with fat layer exposed; E11.51 Type 2 diabetes mellitus with diabetic peripheral angiopathy without gangrene; I73.9 Peripheral vascular disease, unspecified; E11.42 Type 2 diabetes mellitus with diabetic polyneuropathy; I12.0 Hypertensive chronic kidney disease with stage 5 chronic kidney disease or end stage renal disease; E11.22 Type 2 diabetes mellitus with diabetic chronic kidney disease; N18.6 End stage renal disease; I25.10 Atherosclerotic heart disease of native coronary artery without angina pectoris | CPT/HCPCS: G0463 ==

== ENCOUNTER 2019-05-22 00:19 | Day surgery (SDC) | payer OTHER | END 2019-05-22 22:54 | disposition home or self-care (01) | LOC: WOUND 00:19 | DX: E11.622 Type 2 diabetes mellitus with other skin ulcer (principal); L97.821 Non-pressure chronic ulcer of other part of left lower leg limited to breakdown of skin; E11.621 Type 2 diabetes mellitus with foot ulcer; L97.522 Non-pressure chronic ulcer of other part of left foot with fat layer exposed; F10.20 Alcohol dependence, uncomplicated; G89.4 Chronic pain syndrome; I25.10 Atherosclerotic heart disease of native coronary artery without angina pectoris; E11.42 Type 2 diabetes mellitus with diabetic polyneuropathy; I10 Essential (primary) hypertension; E11.51 Type 2 diabetes mellitus with diabetic peripheral angiopathy without gangrene; F34.9 Persistent mood [affective] disorder, unspecified; Z95.818 Presence of other cardiac implants and grafts | CPT/HCPCS: 96365; J0696 ==

== ENCOUNTER 2019-05-23 00:48 | Day surgery (SDC) | payer OTHER | END 2019-05-23 23:45 | disposition home or self-care (01) | LOC: ATC 00:48 | DX: E11.621 Type 2 diabetes mellitus with foot ulcer (principal); L97.521 Non-pressure chronic ulcer of other part of left foot limited to breakdown of skin; E11.622 Type 2 diabetes mellitus with other skin ulcer; L97.822 Non-pressure chronic ulcer of other part of left lower leg with fat layer exposed; I73.9 Peripheral vascular disease, unspecified; F34.9 Persistent mood [affective] disorder, unspecified; F10.20 Alcohol dependence, uncomplicated; G89.4 Chronic pain syndrome; I25.10 Atherosclerotic heart disease of native coronary artery without angina pectoris; G62.9 Polyneuropathy, unspecified; Z95.818 Presence of other cardiac implants and grafts | CPT/HCPCS: 96365; C1751; J0696 ==

== ENCOUNTER 2019-05-24 11:38 | Day surgery (SDC) | payer OTHER | END 2019-05-24 12:12 | disposition home or self-care (01) | LOC: ATC 11:38 | DX: E11.621 Type 2 diabetes mellitus with foot ulcer (principal); L97.521 Non-pressure chronic ulcer of other part of left foot limited to breakdown of skin; E11.622 Type 2 diabetes mellitus with other skin ulcer; L97.822 Non-pressure chronic ulcer of other part of left lower leg with fat layer exposed; E11.51 Type 2 diabetes mellitus with diabetic peripheral angiopathy without gangrene; F34.9 Persistent mood [affective] disorder, unspecified; F10.20 Alcohol dependence, uncomplicated; G89.4 Chronic pain syndrome; I25.10 Atherosclerotic heart disease of native coronary artery without angina pectoris; E11.42 Type 2 diabetes mellitus with diabetic polyneuropathy; Z95.818 Presence of other cardiac implants and grafts | CPT/HCPCS: 96365; J0696 ==

== ENCOUNTER 2019-05-25 00:50 | Day surgery (SDC) | payer OTHER | END 2019-05-25 14:00 | disposition home or self-care (01) | LOC: ATC 00:50 | DX: E11.621 Type 2 diabetes mellitus with foot ulcer (principal); L97.521 Non-pressure chronic ulcer of other part of left foot limited to breakdown of skin; E11.622 Type 2 diabetes mellitus with other skin ulcer; L97.822 Non-pressure chronic ulcer of other part of left lower leg with fat layer exposed; E11.51 Type 2 diabetes mellitus with diabetic peripheral angiopathy without gangrene; F34.9 Persistent mood [affective] disorder, unspecified; F10.20 Alcohol dependence, uncomplicated; G89.4 Chronic pain syndrome; I25.10 Atherosclerotic heart disease of native coronary artery without angina pectoris; G62.9 Polyneuropathy, unspecified; Z95.818 Presence of other cardiac implants and grafts | CPT/HCPCS: 96365; J0696 ==

== ENCOUNTER 2019-05-26 00:04 | Day surgery (SDC) | payer OTHER | END 2019-05-26 11:36 | disposition home or self-care (01) | LOC: ATC 00:04 | DX: E11.621 Type 2 diabetes mellitus with foot ulcer (principal); E11.622 Type 2 diabetes mellitus with other skin ulcer; L97.822 Non-pressure chronic ulcer of other part of left lower leg with fat layer exposed; L97.521 Non-pressure chronic ulcer of other part of left foot limited to breakdown of skin; E11.51 Type 2 diabetes mellitus with diabetic peripheral angiopathy without gangrene; I73.9 Peripheral vascular disease, unspecified; E11.42 Type 2 diabetes mellitus with diabetic polyneuropathy; I25.10 Atherosclerotic heart disease of native coronary artery without angina pectoris; F34.9 Persistent mood [affective] disorder, unspecified; F10.20 Alcohol dependence, uncomplicated; G89.4 Chronic pain syndrome; Z95.818 Presence of other cardiac implants and grafts | CPT/HCPCS: 96365; J0696 ==

== ENCOUNTER 2019-05-27 00:10 | Day surgery (SDC) | payer OTHER | END 2019-05-27 11:39 | disposition home or self-care (01) | LOC: ATC 00:10 | DX: E11.621 Type 2 diabetes mellitus with foot ulcer (principal); L97.521 Non-pressure chronic ulcer of other part of left foot limited to breakdown of skin; E11.622 Type 2 diabetes mellitus with other skin ulcer; L97.822 Non-pressure chronic ulcer of other part of left lower leg with fat layer exposed; E11.51 Type 2 diabetes mellitus with diabetic peripheral angiopathy without gangrene; F10.20 Alcohol dependence, uncomplicated; F34.9 Persistent mood [affective] disorder, unspecified; G89.4 Chronic pain syndrome; I25.10 Atherosclerotic heart disease of native coronary artery without angina pectoris; G62.9 Polyneuropathy, unspecified; Z95.818 Presence of other cardiac implants and grafts | CPT/HCPCS: 36415; 83036; 96365; J0696 ==

== ENCOUNTER 2019-05-28 00:38 | Day surgery (SDC) | payer OTHER ==
[2019-05-29] MEDS ORDERED: Ceftriaxone1 G2 IV (10:49)
== END 2019-05-28 10:35 | disposition home or self-care (01) ==
LOC: ATC 00:38
DX: E11.621 Type 2 diabetes mellitus with foot ulcer (principal); L97.521 Non-pressure chronic ulcer of other part of left foot limited to breakdown of skin; E11.622 Type 2 diabetes mellitus with other skin ulcer; L97.822 Non-pressure chronic ulcer of other part of left lower leg with fat layer exposed; E11.51 Type 2 diabetes mellitus with diabetic peripheral angiopathy without gangrene; E11.42 Type 2 diabetes mellitus with diabetic polyneuropathy; F10.20 Alcohol dependence, uncomplicated; I25.10 Atherosclerotic heart disease of native coronary artery without angina pectoris; F34.9 Persistent mood [affective] disorder, unspecified; G89.4 Chronic pain syndrome; Z95.818 Presence of other cardiac implants and grafts
CPT/HCPCS: 96365; J0696

== ENCOUNTER 2019-05-29 00:16 | Day surgery (SDC) | payer OTHER ==
[2019-05-29] MEDS ORDERED: Ceftriaxone1 G2 IV (10:49)
== END 2019-05-29 22:51 | disposition home or self-care (01) ==
LOC: WOUND 00:16
DX: E11.622 Type 2 diabetes mellitus with other skin ulcer (principal); E11.621 Type 2 diabetes mellitus with foot ulcer; L97.821 Non-pressure chronic ulcer of other part of left lower leg limited to breakdown of skin; L97.522 Non-pressure chronic ulcer of other part of left foot with fat layer exposed; F34.9 Persistent mood [affective] disorder, unspecified; E11.51 Type 2 diabetes mellitus with diabetic peripheral angiopathy without gangrene; F10.20 Alcohol dependence, uncomplicated; G89.4 Chronic pain syndrome; I25.10 Atherosclerotic heart disease of native coronary artery without angina pectoris; E11.42 Type 2 diabetes mellitus with diabetic polyneuropathy; Z95.818 Presence of other cardiac implants and grafts
CPT/HCPCS: 96365; J0696

== ENCOUNTER 2019-05-30 02:33 | Day surgery (SDC) | payer OTHER ==
[~2019-05-30 02:33] MED LIST changes: +Ceftriaxone1 G2 IV
== END 2019-05-30 23:08 | disposition home or self-care (01) ==
LOC: HBO 02:33
DX: E11.621 Type 2 diabetes mellitus with foot ulcer (principal); E11.622 Type 2 diabetes mellitus with other skin ulcer; L97.822 Non-pressure chronic ulcer of other part of left lower leg with fat layer exposed; L97.521 Non-pressure chronic ulcer of other part of left foot limited to breakdown of skin; E11.51 Type 2 diabetes mellitus with diabetic peripheral angiopathy without gangrene; I73.9 Peripheral vascular disease, unspecified; I25.10 Atherosclerotic heart disease of native coronary artery without angina pectoris; E11.42 Type 2 diabetes mellitus with diabetic polyneuropathy; F34.9 Persistent mood [affective] disorder, unspecified; F10.20 Alcohol dependence, uncomplicated; G89.4 Chronic pain syndrome; Z95.818 Presence of other cardiac implants and grafts
CPT/HCPCS: 82947; 96365; G0463; J0696

== ENCOUNTER 2019-05-31 11:59 | Day surgery (SDC) | payer OTHER | END 2019-05-31 12:24 | disposition home or self-care (01) | LOC: ATC 11:59 | DX: E11.622 Type 2 diabetes mellitus with other skin ulcer (principal); L97.822 Non-pressure chronic ulcer of other part of left lower leg with fat layer exposed; E11.621 Type 2 diabetes mellitus with foot ulcer; L97.521 Non-pressure chronic ulcer of other part of left foot limited to breakdown of skin; F34.9 Persistent mood [affective] disorder, unspecified; F10.20 Alcohol dependence, uncomplicated; G89.4 Chronic pain syndrome; I25.10 Atherosclerotic heart disease of native coronary artery without angina pectoris; E11.51 Type 2 diabetes mellitus with diabetic peripheral angiopathy without gangrene; E11.42 Type 2 diabetes mellitus with diabetic polyneuropathy; Z95.818 Presence of other cardiac implants and grafts | CPT/HCPCS: 96365; J0696 ==

== ENCOUNTER 2019-06-01 15:21 | Day surgery (SDC) | payer OTHER | END 2019-06-01 15:50 | disposition home or self-care (01) | LOC: ATC 15:21 | DX: E11.621 Type 2 diabetes mellitus with foot ulcer (principal); L97.521 Non-pressure chronic ulcer of other part of left foot limited to breakdown of skin; E11.622 Type 2 diabetes mellitus with other skin ulcer; L97.822 Non-pressure chronic ulcer of other part of left lower leg with fat layer exposed; E11.51 Type 2 diabetes mellitus with diabetic peripheral angiopathy without gangrene; F34.9 Persistent mood [affective] disorder, unspecified; F10.20 Alcohol dependence, uncomplicated; G89.4 Chronic pain syndrome; I25.10 Atherosclerotic heart disease of native coronary artery without angina pectoris; G62.9 Polyneuropathy, unspecified; Z95.818 Presence of other cardiac implants and grafts | CPT/HCPCS: 96374; J0696 ==

== ENCOUNTER 2019-06-02 00:07 | Day surgery (SDC) | payer OTHER | END 2019-06-02 14:02 | disposition home or self-care (01) | LOC: ATC 00:07 | DX: L97.822 Non-pressure chronic ulcer of other part of left lower leg with fat layer exposed (principal); E11.621 Type 2 diabetes mellitus with foot ulcer; L97.521 Non-pressure chronic ulcer of other part of left foot limited to breakdown of skin; I25.10 Atherosclerotic heart disease of native coronary artery without angina pectoris; E11.622 Type 2 diabetes mellitus with other skin ulcer; E11.51 Type 2 diabetes mellitus with diabetic peripheral angiopathy without gangrene; E11.42 Type 2 diabetes mellitus with diabetic polyneuropathy; G89.4 Chronic pain syndrome; F10.20 Alcohol dependence, uncomplicated; F34.9 Persistent mood [affective] disorder, unspecified; Z95.818 Presence of other cardiac implants and grafts | CPT/HCPCS: 96365; J0696 ==

== ENCOUNTER 2019-06-03 00:22 | Day surgery (SDC) | payer OTHER | END 2019-06-03 22:52 | disposition home or self-care (01) | LOC: HBO 00:22 | DX: E11.621 Type 2 diabetes mellitus with foot ulcer (principal); E11.622 Type 2 diabetes mellitus with other skin ulcer; L97.822 Non-pressure chronic ulcer of other part of left lower leg with fat layer exposed; L97.521 Non-pressure chronic ulcer of other part of left foot limited to breakdown of skin; E11.51 Type 2 diabetes mellitus with diabetic peripheral angiopathy without gangrene; I73.9 Peripheral vascular disease, unspecified; E11.40 Type 2 diabetes mellitus with diabetic neuropathy, unspecified; I25.10 Atherosclerotic heart disease of native coronary artery without angina pectoris; F10.20 Alcohol dependence, uncomplicated; F34.9 Persistent mood [affective] disorder, unspecified; G89.4 Chronic pain syndrome; Z95.818 Presence of other cardiac implants and grafts | CPT/HCPCS: 82947; 96365; G0463; J0696 ==

== ENCOUNTER 2019-06-04 00:14 | Day surgery (SDC) | payer OTHER | END 2019-06-04 11:34 | disposition home or self-care (01) | LOC: ATC 00:14 | DX: E11.621 Type 2 diabetes mellitus with foot ulcer (principal); L97.521 Non-pressure chronic ulcer of other part of left foot limited to breakdown of skin; E11.622 Type 2 diabetes mellitus with other skin ulcer; L97.822 Non-pressure chronic ulcer of other part of left lower leg with fat layer exposed; E11.51 Type 2 diabetes mellitus with diabetic peripheral angiopathy without gangrene; F34.9 Persistent mood [affective] disorder, unspecified; F10.20 Alcohol dependence, uncomplicated; G89.4 Chronic pain syndrome; I25.10 Atherosclerotic heart disease of native coronary artery without angina pectoris; E11.42 Type 2 diabetes mellitus with diabetic polyneuropathy; Z95.818 Presence of other cardiac implants and grafts | CPT/HCPCS: 96365; J0696 ==

== ENCOUNTER 2019-06-05 00:08 | Day surgery (SDC) | payer OTHER | END 2019-06-05 22:44 | disposition home or self-care (01) | LOC: WOUND 00:08 | DX: E11.621 Type 2 diabetes mellitus with foot ulcer (principal); E11.622 Type 2 diabetes mellitus with other skin ulcer; L97.822 Non-pressure chronic ulcer of other part of left lower leg with fat layer exposed; L97.521 Non-pressure chronic ulcer of other part of left foot limited to breakdown of skin; E11.51 Type 2 diabetes mellitus with diabetic peripheral angiopathy without gangrene; I73.9 Peripheral vascular disease, unspecified; I25.10 Atherosclerotic heart disease of native coronary artery without angina pectoris; F10.20 Alcohol dependence, uncomplicated; G89.4 Chronic pain syndrome; Z95.818 Presence of other cardiac implants and grafts; G62.9 Polyneuropathy, unspecified | CPT/HCPCS: 96365; G0463; J0696 ==

== ENCOUNTER 2019-06-06 02:10 | Day surgery (SDC) | payer OTHER | END 2019-06-06 11:35 | disposition home or self-care (01) | LOC: ATC 02:10 | DX: E11.622 Type 2 diabetes mellitus with other skin ulcer (principal); E11.621 Type 2 diabetes mellitus with foot ulcer; L97.822 Non-pressure chronic ulcer of other part of left lower leg with fat layer exposed; L97.521 Non-pressure chronic ulcer of other part of left foot limited to breakdown of skin; E11.51 Type 2 diabetes mellitus with diabetic peripheral angiopathy without gangrene; I73.9 Peripheral vascular disease, unspecified; E11.40 Type 2 diabetes mellitus with diabetic neuropathy, unspecified; I25.10 Atherosclerotic heart disease of native coronary artery without angina pectoris; F10.20 Alcohol dependence, uncomplicated; F34.9 Persistent mood [affective] disorder, unspecified; G89.4 Chronic pain syndrome; Z95.818 Presence of other cardiac implants and grafts | CPT/HCPCS: 96365; J0696 ==

== ENCOUNTER 2019-06-07 14:13 | Day surgery (SDC) | payer OTHER | END 2019-06-07 14:44 | disposition home or self-care (01) | LOC: ATC 14:13 | DX: E11.621 Type 2 diabetes mellitus with foot ulcer (principal); L97.521 Non-pressure chronic ulcer of other part of left foot limited to breakdown of skin; E11.622 Type 2 diabetes mellitus with other skin ulcer; L97.822 Non-pressure chronic ulcer of other part of left lower leg with fat layer exposed; E11.51 Type 2 diabetes mellitus with diabetic peripheral angiopathy without gangrene; F34.9 Persistent mood [affective] disorder, unspecified; F10.20 Alcohol dependence, uncomplicated; G89.4 Chronic pain syndrome; I25.10 Atherosclerotic heart disease of native coronary artery without angina pectoris; E11.42 Type 2 diabetes mellitus with diabetic polyneuropathy; Z95.818 Presence of other cardiac implants and grafts | CPT/HCPCS: 96365; J0696 ==

== ENCOUNTER 2019-06-19 00:34 | Day surgery (SDC) | payer OTHER | END 2019-06-19 23:27 | disposition home or self-care (01) | LOC: WOUND 00:34 | DX: E11.621 Type 2 diabetes mellitus with foot ulcer (principal); E11.622 Type 2 diabetes mellitus with other skin ulcer; L97.522 Non-pressure chronic ulcer of other part of left foot with fat layer exposed; L97.821 Non-pressure chronic ulcer of other part of left lower leg limited to breakdown of skin; E11.51 Type 2 diabetes mellitus with diabetic peripheral angiopathy without gangrene; I73.9 Peripheral vascular disease, unspecified; E11.42 Type 2 diabetes mellitus with diabetic polyneuropathy; I10 Essential (primary) hypertension; I25.10 Atherosclerotic heart disease of native coronary artery without angina pectoris | CPT/HCPCS: 73630 ==

== ENCOUNTER 2019-06-26 11:14 | Day surgery (SDC) | payer OTHER | END 2019-06-26 23:32 | disposition home or self-care (01) | LOC: WOUND | DX: E11.621 Type 2 diabetes mellitus with foot ulcer (principal); E11.622 Type 2 diabetes mellitus with other skin ulcer; L97.521 Non-pressure chronic ulcer of other part of left foot limited to breakdown of skin; L97.821 Non-pressure chronic ulcer of other part of left lower leg limited to breakdown of skin; E11.51 Type 2 diabetes mellitus with diabetic peripheral angiopathy without gangrene; I73.9 Peripheral vascular disease, unspecified; E11.42 Type 2 diabetes mellitus with diabetic polyneuropathy; I10 Essential (primary) hypertension; I25.10 Atherosclerotic heart disease of native coronary artery without angina pectoris; F34.9 Persistent mood [affective] disorder, unspecified; F10.20 Alcohol dependence, uncomplicated; G89.4 Chronic pain syndrome; Z95.818 Presence of other cardiac implants and grafts | CPT/HCPCS: 87071; 87075; 87077; 87147; 87186; 87205; 99211; J0696 ==

== ENCOUNTER 2019-06-29 12:15 | Emergency (ER) | payer OTHER ==
[~2019-06-29] VITALS: Ht 188 cm; Wt 99.8 kg
[2019-06-29 13:26] LABS: BASOPHILS ABSOLUTE AUTO 0.04 K/mm3 (0.00-0.23); BASOPHILS PERCENT AUTO 0 % (0-2); EOSINOPHILS ABSOLUTE AUTO 0.26 K/mm3 (0.00-0.68); EOSINOPHILS PERCENT AUTO 2 % (0-6); Hematocrit 34.5 % (37.0-53.0); Hemoglobin 11.4 g/dL (13.5-17.5); IMMATURE GRAN ABSOLUTE AUTO 0.07 K/mm3 (0.00-0.10); IMMATURE GRAN PERCENT AUTO 1 % (0-1); LYMPHOCYTES ABSOLUTE AUTO 0.89 K/mm3 (0.84-5.20); LYMPHOCYTES PERCENT AUTO 8 % (21-46); MONOCYTES ABSOLUTE AUTO 0.88 K/mm3 (0.16-1.47); MONOCYTES PERCENT AUTO 8 % (4-13); Mean Corpuscular Volume 94 fL (80-100); Mean Platelet Volume 10.1 fL (9.1-12.4); NEUTROPHILS ABSOLUTE AUTO 9.01 K/mm3 (1.96-9.15); NEUTROPHILS PERCENT AUTO 81 % (41-73); Platelet Count 370 K/mm3 (150-400); RDW Coefficient Variation 13.2 % (11.7-14.2); RDW Standard Deviation 45.6 fL (35.1-46.3); Red Blood Cell Count 3.68 M/mm3 (4.30-5.90); White Blood Cell Count 11.15 K/mm3 (4.00-11.30)
[2019-06-29 13:44] LABS: Alanine Aminotransfer (ALT/SGP 23 U/L (12-78); Albumin, Blood 2.5 g/dL (3.4-5.0); Albumin/Globulin Ratio 0.6 (0.8-1.8); Alk Phos 73 U/L (50-136); Anion Gap 6 mmol/L (6-16); Aspartate Aminotrans (AST/SGOT 16 U/L (12-37); Bilirubin, Total 0.2 mg/dL (0.1-1.0); Blood Urea Nitrogen 24 mg/dL (8-24); Bun/Creatinine Ratio 26.8 (12.0-20.0); CO2, Blood 26 mmol/L (21-32); Calcium, Blood 8.8 mg/dL (8.5-10.1); Chloride, Blood 104 mmol/L (98-108); Glomerular Filtration Rate >60 (60-); Glucose, Blood 386 mg/dL (70-99); Potassium, Blood 5.7 mmol/L (3.5-5.5); Sodium, Blood 136 mmol/L (136-145); Total Protein, Blood 6.5 g/dL (6.4-8.2)
== END 2019-06-29 15:34 | disposition home or self-care (01) ==
LOC: ER 12:15
PROVIDERS: Emergency Medicine
DX: E11.628 Type 2 diabetes mellitus with other skin complications (principal); L08.9 Local infection of the skin and subcutaneous tissue, unspecified; E11.40 Type 2 diabetes mellitus with diabetic neuropathy, unspecified; F17.210 Nicotine dependence, cigarettes, uncomplicated; Z79.82 Long term (current) use of aspirin; Z79.891 Long term (current) use of opiate analgesic; Z79.899 Other long term (current) drug therapy
CPT/HCPCS: 36415; 73630; 80053; 83605; 85025; 99283-25

== ENCOUNTER 2019-07-03 13:45 | Inpatient (IN) | payer OTHER ==
[~2019-07-03] VITALS: Ht 188 cm; Wt 104.0 kg
[2019-07-03 15:27] LABS: BASOPHILS ABSOLUTE AUTO 0.07 K/mm3 (0.00-0.23); BASOPHILS PERCENT AUTO 1 % (0-2); EOSINOPHILS ABSOLUTE AUTO 0.42 K/mm3 (0.00-0.68); EOSINOPHILS PERCENT AUTO 3 % (0-6); Hematocrit 33.3 % (37.0-53.0); Hemoglobin 10.8 g/dL (13.5-17.5); IMMATURE GRAN ABSOLUTE AUTO 0.15 K/mm3 (0.00-0.10); IMMATURE GRAN PERCENT AUTO 1 % (0-1); LYMPHOCYTES ABSOLUTE AUTO 1.23 K/mm3 (0.84-5.20); LYMPHOCYTES PERCENT AUTO 8 % (21-46); MONOCYTES ABSOLUTE AUTO 1.26 K/mm3 (0.16-1.47); MONOCYTES PERCENT AUTO 8 % (4-13); Mean Corpuscular HGB 31.3 pg (26.0-34.0); Mean Corpuscular HGB Conc 32.4 g/dL (31.5-36.5); Mean Platelet Volume 10.1 fL (9.1-12.4); NEUTROPHILS ABSOLUTE AUTO 11.98 K/mm3 (1.96-9.15); NEUTROPHILS PERCENT AUTO 79 % (41-73); Platelet Count 433 K/mm3 (150-400); RDW Coefficient Variation 13.8 % (11.7-14.2); RDW Standard Deviation 48.6 fL (35.1-46.3); Red Blood Cell Count 3.45 M/mm3 (4.30-5.90); White Blood Cell Count 15.11 K/mm3 (4.00-11.30)
[2019-07-03] MEDS ORDERED: FURO20 PO (15:28)
[2019-07-03 15:29] LABS: Mean Corpuscular Volume 97 fL (80-100)
[2019-07-03 16:06] LABS: Albumin, Blood 2.7 g/dL (3.4-5.0); Albumin/Globulin Ratio 0.6 (0.8-1.8); Bilirubin, Total 0.4 mg/dL (0.1-1.0); Creatinine, Blood 1.41 mg/dL (0.60-1.20); Globulin, Blood 4.5 g/dL (2.2-4.0); Potassium, Blood 5.7 mmol/L (3.5-5.5); Total Protein, Blood 7.2 g/dL (6.4-8.2)
[2019-07-03] MEDS ORDERED: VITAMIN D31000 UNIT PO (17:26)
[2019-07-03] MEDS ORDERED: FERSU300 PO (17:27)
[2019-07-03] MEDS ORDERED: LISI5 PO (17:27)
[2019-07-04 05:14] LABS: BASOPHILS ABSOLUTE AUTO 0.06 K/mm3 (0.00-0.23); BASOPHILS PERCENT AUTO 1 % (0-2); EOSINOPHILS ABSOLUTE AUTO 0.46 K/mm3 (0.00-0.68); EOSINOPHILS PERCENT AUTO 4 % (0-6); Hematocrit 32.7 % (37.0-53.0); Hemoglobin 10.5 g/dL (13.5-17.5); IMMATURE GRAN ABSOLUTE AUTO 0.11 K/mm3 (0.00-0.10); IMMATURE GRAN PERCENT AUTO 1 % (0-1); LYMPHOCYTES ABSOLUTE AUTO 1.52 K/mm3 (0.84-5.20); LYMPHOCYTES PERCENT AUTO 13 % (21-46); MONOCYTES ABSOLUTE AUTO 1.07 K/mm3 (0.16-1.47); MONOCYTES PERCENT AUTO 9 % (4-13); Mean Corpuscular HGB 30.8 pg (26.0-34.0); Mean Corpuscular HGB Conc 32.1 g/dL (31.5-36.5); Mean Corpuscular Volume 96 fL (80-100); Mean Platelet Volume 9.9 fL (9.1-12.4); NEUTROPHILS ABSOLUTE AUTO 8.54 K/mm3 (1.96-9.15); NEUTROPHILS PERCENT AUTO 73 % (41-73); Platelet Count 403 K/mm3 (150-400); RDW Coefficient Variation 13.7 % (11.7-14.2); RDW Standard Deviation 47.9 fL (35.1-46.3); Red Blood Cell Count 3.41 M/mm3 (4.30-5.90); White Blood Cell Count 11.76 K/mm3 (4.00-11.30)
--- NOTE | 2019-07-04 05:50 | NUR ---
SHIFT SUMMARY PT ARRIVED TO ROOM APPROX 2029. L FOOT WOUND/ULCER VERY FOUL SMELLING, OBTAINED PHOTO DOCUMENTATION AND REDRESSED FOOT. NPO SINCE MIDNIGHT. INDEPENDENT IN ROOM. HE WAS ABLE TO SLEEP T/O NIGHT. CALL LIGHT IN REACH.
[2019-07-04 05:51] LABS: Alanine Aminotransfer (ALT/SGP 18 U/L (12-78); Albumin, Blood 2.4 g/dL (3.4-5.0); Albumin/Globulin Ratio 0.6 (0.8-1.8); Alk Phos 62 U/L (50-136); Anion Gap 7 mmol/L (6-16); Aspartate Aminotrans (AST/SGOT 8 U/L (12-37); Bilirubin, Total 0.3 mg/dL (0.1-1.0); Blood Urea Nitrogen 23 mg/dL (8-24); Bun/Creatinine Ratio 21.1 (12.0-20.0); CO2, Blood 27 mmol/L (21-32); Calcium, Blood 8.8 mg/dL (8.5-10.1); Chloride, Blood 103 mmol/L (98-108); Creatinine, Blood 1.09 mg/dL (0.60-1.20); Globulin, Blood 3.9 g/dL (2.2-4.0); Glomerular Filtration Rate >60 (60-); Glucose, Blood 249 mg/dL (70-99); Potassium, Blood 4.4 mmol/L (3.5-5.5); Sodium, Blood 137 mmol/L (136-145); Total Protein, Blood 6.3 g/dL (6.4-8.2)
--- NOTE | 2019-07-04 11:02 | NUR ---
Milad was alert, communicative and friendly. No indications of coporeal discomfort or anxiety. Milad explained his medical situation, reminisced about his important friendships, valued beliefs and deep dana. I provided supportive listening, reassurance, encouragement and audible prayer for non-pharmaceutical comfort, inspiration and strength. Milad verbalized gratitude and showed good evidence of emotional and spiritual engagement. Will continue to follow and assess for service.
--- NOTE | 2019-07-04 12:27 | NUR ---
FROM MED FLOOR TO [facility]. Lungs clear T/O to Auscultation. History, Chart, Medications and Allergies reviewed before start of procedure.Patient confirms NPO status and agrees with scheduled surgery.
--- NOTE | 2019-07-04 13:33 | NUR ---
07/04/19 Maribel3 Vanessa Butler PT ON SCHEDULTED ANTIBIOTICS
--- NOTE | 2019-07-04 15:25 | NUR ---
PATIENT BACK FROM SURGERY, GIVEN HIS GABAPENTIN. ASKING FOR PAIN MEDICATIONS AFTER MOVING FROM ONE BED TO THE OTHER. PATIENT MOVED WELL, BUT IS ON NON-WEIGHT BEARING FOR THE OPERATIVE FOOT. HE IS AWARE OF THIS. CALLS APPROPRIATELY. WILL GIVE A DOSE OF DILAUDID WHEN MEDICATIONS ARE TAKEN IN.
--- NOTE | 2019-07-04 18:22 | NUR ---
SHIFT SUMMARY PATIENT IS PLEASANT, FEELING BETTER TODAY AFTER SURGERY. HE SPOKE WITH ANGELA MACKAY TODAY. NO ACUTE CONCERNS PER PATIENT. HE IS CONNECTED TO CONTINOUS FLUIDS.
--- NOTE | 2019-07-04 18:33 | NUR ---
Clinical Visit: Pt has had partial foot amputation. He denies pain at time of visit. Pt's thought patterns are scattered to the degree that he is not able to focus on answering asked questions. Difficult visit due to this scattered thinking. His speech is very pressured and rapid. He states that he has a cat. He has a neighbor that he can call to take care of his cat while he is in the hospital. Recommend psych consult outpatient. Pt has bipolar disorder, and appears to be somewhat manic with displayed behaviors and inability to converse. Sentences are run on and thoughts are fragmented and unfinished. Pt was unable to tell me who he would choose as an alternate decision maker. He does have a sister, does have a step daughter, and ex-. He is not in contact with them at this time. Will remain available if needed.
[2019-07-04 20:00] LABS: Vancomycin, Trough 16.9 ug/mL (5.0-10.0)
[2019-07-05 05:19] LABS: BASOPHILS ABSOLUTE AUTO 0.06 K/mm3 (0.00-0.23); BASOPHILS PERCENT AUTO 0 % (0-2); EOSINOPHILS ABSOLUTE AUTO 0.22 K/mm3 (0.00-0.68); EOSINOPHILS PERCENT AUTO 2 % (0-6); Hematocrit 30.6 % (37.0-53.0); Hemoglobin 9.8 g/dL (13.5-17.5); IMMATURE GRAN ABSOLUTE AUTO 0.09 K/mm3 (0.00-0.10); IMMATURE GRAN PERCENT AUTO 1 % (0-1); LYMPHOCYTES ABSOLUTE AUTO 1.19 K/mm3 (0.84-5.20); LYMPHOCYTES PERCENT AUTO 8 % (21-46); MONOCYTES ABSOLUTE AUTO 1.06 K/mm3 (0.16-1.47); MONOCYTES PERCENT AUTO 7 % (4-13); Mean Corpuscular HGB 31.6 pg (26.0-34.0); NEUTROPHILS ABSOLUTE AUTO 12.28 K/mm3 (1.96-9.15); NEUTROPHILS PERCENT AUTO 82 % (41-73); Platelet Count 421 K/mm3 (150-400); RDW Coefficient Variation 13.5 % (11.7-14.2)
[2019-07-05 05:23] LABS: Mean Corpuscular Volume 99 fL (80-100)
[2019-07-05 05:43] LABS: Albumin, Blood 2.2 g/dL (3.4-5.0); Anion Gap 4 mmol/L (6-16); Blood Urea Nitrogen 19 mg/dL (8-24); Bun/Creatinine Ratio 17.9 (12.0-20.0); CO2, Blood 27 mmol/L (21-32); Calcium, Blood 8.1 mg/dL (8.5-10.1); Chloride, Blood 101 mmol/L (98-108); Creatinine, Blood 1.06 mg/dL (0.60-1.20); Glomerular Filtration Rate >60 (60-); Glucose, Blood 390 mg/dL (70-99); Magnesium, Blood 1.7 mg/dL (1.6-2.4); Phosphorus, Blood 2.5 mg/dL (2.5-4.9); Potassium, Blood 4.6 mmol/L (3.5-5.5); Sodium, Blood 132 mmol/L (136-145)
--- NOTE | 2019-07-05 06:48 | NUR ---
SHIFT SUMMARY PT IS A 63 Y/O MALE, ADMITTED FOR A DIABETIC LEFT FOOT ULCER, WITH A SURGICAL PARTIAL FOOT AMPUTATION DONE YESTERDAY, WITH SURGICAL BANDAGE INTACT. PT IS CURRENTLY NONWEIGHTBEARING ON HIS L FOOT PER THE DOCTOR. WHEN PT TRIED TO LEAVE THE ROOM TO AMBULATE, PT WAS REMINDED AND REDIRECTED BACK INTO HIS ROOM. PT DID HAVE SOME BLEEDING THROUGH THE BANDAGES AT THAT TIME, BUT HAS SINCE REMAINED STABLE. PT DID SPIKE A MINOR FEVER AT 100.8, WHICH CAME DOWN TO 98.2 WITH 650 MG OF TYLENOL. ALL OTHER VITALS REMAINED STABLE. PT RECEIVED CONTINUOUS FLUIDS, NS AT 75 ML/HR. PT DID REPORT PAIN IN HIS L FOOT, WHICH WAS WELL CONTROLLED WITH HIS SCHEDULED OXYCONTIN. PT DID ALSO APPEAR VISIBLE ANXIOUS AND MANIC AT TIME, WITH WANDERING, FAST SPEECH AND FLIGHT OF THOUGHTS. HE WAS MEDICATED ONCE FOR ANXIETY AT BEDTIME WITH PRN ATIVAN. NO OTHER ACUTE CHANGES IN PT CONDITION NOTED. WILL CONTINUE TO MONITOR AND TREAT PER EMAR UNTIL HAND OFF TO DAY SHIFT.
--- NOTE | 2019-07-05 18:46 | NUR ---
SHIFT SUMMARY NO ACUTE CONCERNS ACCORDING TO THE PATIENT. GOT HIM TO RELAX AND LIE DOWN TODAY. PHYSICAL THERAPY WORKED WITH THE PATIENT ON HEEL ONLY WALKING AND HE HAS BEEN GIVEN A BOOT HE KNOWS HE IS TO BE NON-WEIGHT BEARING BUT DOES NOT TOLERATE NOR LISTEN TO THE NON-WEIGHT BEARING STATUS. EXPLAINED TO THE PATIENT THAT THIS WILL SLOW HIS HEALING DOWN. HIS BLOOD SUGARS HAVE BEEN HIGH WELL TODAY.
[2019-07-06 04:53] LABS: BASOPHILS ABSOLUTE AUTO 0.04 K/mm3 (0.00-0.23); BASOPHILS PERCENT AUTO 0 % (0-2); EOSINOPHILS ABSOLUTE AUTO 0.21 K/mm3 (0.00-0.68); EOSINOPHILS PERCENT AUTO 2 % (0-6); Hemoglobin 9.8 g/dL (13.5-17.5); IMMATURE GRAN ABSOLUTE AUTO 0.11 K/mm3 (0.00-0.10); IMMATURE GRAN PERCENT AUTO 1 % (0-1); LYMPHOCYTES PERCENT AUTO 10 % (21-46); MONOCYTES ABSOLUTE AUTO 1.07 K/mm3 (0.16-1.47); MONOCYTES PERCENT AUTO 8 % (4-13); Mean Corpuscular HGB 30.9 pg (26.0-34.0); Mean Corpuscular HGB Conc 32.7 g/dL (31.5-36.5); Mean Platelet Volume 9.9 fL (9.1-12.4); NEUTROPHILS ABSOLUTE AUTO 11.41 K/mm3 (1.96-9.15); NEUTROPHILS PERCENT AUTO 80 % (41-73); Platelet Count 387 K/mm3 (150-400); RDW Coefficient Variation 13.3 % (11.7-14.2); RDW Standard Deviation 46.1 fL (35.1-46.3); Red Blood Cell Count 3.17 M/mm3 (4.30-5.90); White Blood Cell Count 14.24 K/mm3 (4.00-11.30)
[2019-07-06 04:55] LABS: Mean Corpuscular Volume 95 fL (80-100)
--- NOTE | 2019-07-06 05:03 | NUR ---
SOME DRAINAGE NOTED ON L FT DRESSING. FIRST DRESSING CHANGE TO BE COMPLETED BY SURGEON DR MARTINEZ. REINFORCED DRESSING BY ADDING ABD ABSORPENT PAD AND WRAP.
--- NOTE | 2019-07-06 05:20 | NUR ---
SHIFT SUMMARY PT POST OP DAY 2 FOR PARTIAL L FT AMPUTATION. DRESSING IS LIGHTLY SOILED, SOME BLEEDING NOTE OUTSIDE THE BANDAGE. REINFORCED DRESSING WITH ABD PAD AND WRAP, SEE PRIOR NOTE. PT DOES HAVE INCREASED PAIN TONIGHT AND IS GIVEN 0.5MG IV DILAUDID TWICE TO CONTROL PAIN, WELL SCHEDULED OXYCONTIN. PT ALSO GIVEN 1MG PRN PO ATIVAN FOR ANXIETY, MANIC BEHAVIOR WITH PRESSURED SPEECH AND FLIGHT OF IDEAS. PROVIDES LITTLE RELIEF. VSS, AFEBRILE. RESP E/U ON RA, LS CLEAR. NWB TO LLE HOWEVER PT IS QUITE NON COMPLIANT WITH THIS ORDER AND REQUIRES VERY FREQUENT REMINDS AND REDIRECTION ON HEEL WALKING WHILE AMBULATING. CBG 362 TONIGHT, ADMINISTERED 20 UNITS LANTUS PER EMAR. NS RUNNING @ 75 ML/HR. WILL CONT TO MONITOR AND PROVIDE CARE UNTIL PRESUMED BY ONCOMING RN.
[2019-07-06 05:30] LABS: Vancomycin, Random 22.7 ug/mL
[2019-07-06 05:36] LABS: Albumin, Blood 2.2 g/dL (3.4-5.0); Anion Gap 7 mmol/L (6-16); Blood Urea Nitrogen 15 mg/dL (8-24); Bun/Creatinine Ratio 16.4 (12.0-20.0); CO2, Blood 26 mmol/L (21-32); Calcium, Blood 8.5 mg/dL (8.5-10.1); Chloride, Blood 102 mmol/L (98-108); Creatinine, Blood 0.92 mg/dL (0.60-1.20); Glomerular Filtration Rate >60 (60-); Glucose, Blood 285 mg/dL (70-99); Phosphorus, Blood 2.3 mg/dL (2.5-4.9); Potassium, Blood 4.2 mmol/L (3.5-5.5); Sodium, Blood 135 mmol/L (136-145)
--- NOTE | 2019-07-06 18:15 | NUR ---
SHIFT SUMMARY NO ACUTE CONCERNS AT THIS TIME. DRESSING CHANGED BY DR. HOWARD.
--- NOTE | 2019-07-07 04:38 | NUR ---
SHIFT SUMMARY NO ACUTE CHANGES TONIGHT. PT IS A&O, HOWEVER VERY IMPULSIVE WITH FLIGHT OF IDEAS. PT ALSO HAS DIFFICULTY REMEMBERING TO BE NWB TO LLE WITHOUT CONSTANT REMINDERS FROM STAFF . FOR THIS REASON, BED ALARM HAS BEEN ON TONIGHT SO STAFF CAN RESPOND TO PT CHAKA AND REDIRECT PT TO REMAIN OFF LLE. DRESSING TO LLE IS C/D/I, NO VISIBLE DRAINAGE NOTED. PT MEDICATED FOR PAIN PER ORDERS WITH SCHEDULED PO OXYCONTIN XR AND 0.5 MG IV DILAUDID ONCE. IV ABX ADMINISTERED PER ORDERS. NO OTHER CHANGES TO REPORT, WILL CONT TO MONITOR AND PROVIDE CARE UNTIL PRESUMED BY ONCOMING RN.
[2019-07-07 04:59] LABS: BASOPHILS ABSOLUTE AUTO 0.04 K/mm3 (0.00-0.23); BASOPHILS PERCENT AUTO 0 % (0-2); EOSINOPHILS ABSOLUTE AUTO 0.41 K/mm3 (0.00-0.68); EOSINOPHILS PERCENT AUTO 3 % (0-6); Hematocrit 30.6 % (37.0-53.0); Hemoglobin 10.1 g/dL (13.5-17.5); IMMATURE GRAN ABSOLUTE AUTO 0.09 K/mm3 (0.00-0.10); IMMATURE GRAN PERCENT AUTO 1 % (0-1); LYMPHOCYTES ABSOLUTE AUTO 1.56 K/mm3 (0.84-5.20); LYMPHOCYTES PERCENT AUTO 11 % (21-46); MONOCYTES ABSOLUTE AUTO 1.04 K/mm3 (0.16-1.47); MONOCYTES PERCENT AUTO 7 % (4-13); Mean Corpuscular HGB 31.2 pg (26.0-34.0); Mean Corpuscular Volume 94 fL (80-100); Mean Platelet Volume 10.1 fL (9.1-12.4); NEUTROPHILS ABSOLUTE AUTO 11.14 K/mm3 (1.96-9.15); NEUTROPHILS PERCENT AUTO 78 % (41-73); Platelet Count 393 K/mm3 (150-400); RDW Coefficient Variation 13.2 % (11.7-14.2); RDW Standard Deviation 45.8 fL (35.1-46.3); Red Blood Cell Count 3.24 M/mm3 (4.30-5.90); White Blood Cell Count 14.28 K/mm3 (4.00-11.30)
[2019-07-07 06:09] LABS: Albumin, Blood 2.3 g/dL (3.4-5.0); Anion Gap 6 mmol/L (6-16); Blood Urea Nitrogen 15 mg/dL (8-24); Bun/Creatinine Ratio 17.8 (12.0-20.0); CO2, Blood 26 mmol/L (21-32); Chloride, Blood 105 mmol/L (98-108); Creatinine, Blood 0.84 mg/dL (0.60-1.20); Glomerular Filtration Rate >60 (60-); Glucose, Blood 155 mg/dL (70-99); Phosphorus, Blood 3.1 mg/dL (2.5-4.9); Potassium, Blood 4.1 mmol/L (3.5-5.5); Sodium, Blood 137 mmol/L (136-145)
--- NOTE | 2019-07-07 16:29 | NUR ---
ECHOCARDIOGRAM COMPLETE
--- NOTE | 2019-07-07 16:34 | NUR ---
SHIFT SUMMARY PT FORGETFUL ABOUT NON-WEIGHT BEARING STATUS. PT CONTINUOUSLY REMINDED TO KEEP WEIGHT OFF HIS L LEG. PT REFUSED TO USE BEDSIDE COMMODE FOR BM. PT INSISTED ON WALKING TO BATHROOM. PT REMINDED THAT HE IS NOT TO HAVE WEIGHT ON HIS L LEG, BUT CONTINUES TO WALK ON BOTH LEGS. PT WOODWARD WOUND CLEANED & CHANGED THIS SHIFT. PHOTOS TAKEN. DR. HOWARD IN TO SEE PT & INSTRUCTED TO LEAVE L FOOT BANDAGED FOR NOW. DR. HOWARD TO CHANGE DRESSING TOMORROW. NO OTHER CHANGES IN ASSESSMENT AT THIS TIME. VSS. WILL CONTINUE TO MONITOR UNTIL TURNOVER IS COMPLETE. WILL CONTINUE TO REMIND PT OF NON-WEIGHT BEARING STATUS. DRESSINGS INTACT & CLEAN AT THIS TIME.
--- NOTE | 2019-07-07 16:59 | NUR ---
SMOKING CESSATION EDUCATION PT EDUCATED ON SMIKING CESSATION & WOUND HEALING FROM IRIS COMBS RN. PT STATED HE HAS CUT BACK ON SMOKING & CONTINUED TO GO OUT TO SMOKE.
--- NOTE | 2019-07-08 04:17 | NUR ---
SHIFT SUMMARY PT HAD NO ISSUES OR COMPLAINTS NOTED. PT DISCOMFORT HAS BEEN MANAGED WELL AND TX PER EMAR. PT SLEPT OFF AND ON T/O SHIFT. PT CURRENTLY AWAKE AND IN NO DISTRESS. CALL LIGHT IN REACH.
[2019-07-08 05:21] LABS: BASOPHILS ABSOLUTE AUTO 0.05 K/mm3 (0.00-0.23); BASOPHILS PERCENT AUTO 0 % (0-2); EOSINOPHILS ABSOLUTE AUTO 0.45 K/mm3 (0.00-0.68); EOSINOPHILS PERCENT AUTO 3 % (0-6); Hematocrit 31.7 % (37.0-53.0); Hemoglobin 10.3 g/dL (13.5-17.5); IMMATURE GRAN ABSOLUTE AUTO 0.08 K/mm3 (0.00-0.10); IMMATURE GRAN PERCENT AUTO 1 % (0-1); LYMPHOCYTES PERCENT AUTO 13 % (21-46); MONOCYTES ABSOLUTE AUTO 0.97 K/mm3 (0.16-1.47); MONOCYTES PERCENT AUTO 7 % (4-13); Mean Corpuscular HGB 31.1 pg (26.0-34.0); Mean Corpuscular HGB Conc 32.5 g/dL (31.5-36.5); Mean Corpuscular Volume 96 fL (80-100); Mean Platelet Volume 10.1 fL (9.1-12.4); NEUTROPHILS ABSOLUTE AUTO 10.12 K/mm3 (1.96-9.15); NEUTROPHILS PERCENT AUTO 76 % (41-73); Platelet Count 456 K/mm3 (150-400); RDW Coefficient Variation 13.2 % (11.7-14.2); RDW Standard Deviation 46.7 fL (35.1-46.3); Red Blood Cell Count 3.31 M/mm3 (4.30-5.90); White Blood Cell Count 13.37 K/mm3 (4.00-11.30)
[2019-07-08 05:41] LABS: Anion Gap 3 mmol/L (6-16); Blood Urea Nitrogen 17 mg/dL (8-24); Bun/Creatinine Ratio 18.5 (12.0-20.0); CO2, Blood 28 mmol/L (21-32); Calcium, Blood 9.2 mg/dL (8.5-10.1); Chloride, Blood 103 mmol/L (98-108); Creatinine, Blood 0.92 mg/dL (0.60-1.20); Glomerular Filtration Rate >60 (60-); Glucose, Blood 188 mg/dL (70-99); Potassium, Blood 4.2 mmol/L (3.5-5.5); Sodium, Blood 134 mmol/L (136-145); Vancomycin, Trough 11.5 ug/mL (5.0-10.0)
--- NOTE | 2019-07-08 17:13 | NUR ---
SHIFT SUMMARY PT DRESSING ON L FOOT CHANGED THIS SHIFT BY DR. HOWARD. STATED HE WILL CONTINUE TO DO DRESSING CHANGES WHILE THE PT IS IN THE HOSPITAL. PT TEARFUL THIS AFTERNOON DUE TO MISSING HIS CAT. PT BP CONTINUES TO BE ELEVATED THROUGHOUT SHIFT. MEDS GIVEN ORDERED. WILL CONTINUE TO MONITOR. PT WENT OUT TO SMOKE ONCE THIS SHIFT. NO OTHER CHANGES IN ASSESSMENT AT THIS TIME. VSS. WILL CONTINUE TO MONITOR UNTIL TURNOVER IS COMPLETE.
--- NOTE | 2019-07-08 17:22 | NUR ---
[facility] intial note: Mr. Galvin was outside of room and asked me to take him outside for some "sunlight and air." We sat outside and he talked for quite awhile. He appears quite lonely. He only recently moved into a new apt and tells me he is still getting to know his neighbors. He has no contact with family. He admits he enjoys talking to people, but is lonely a lot. He has some strong tenriism ideas and feels deeply that he needs to be "redeemed" and "forgiven" by a God who loves him. I provided gentle senior genetic counselor regarding the incongruence of these statements. He appeared to engage well, but would often drift into another topic. He speaks in circles, but is very pleasant. I provided counel and prayer to good effect. He admits he is concerned about caring for himself properly in the future. He seems to have difficulty managing his health. Perhaps home health could be of benefit? I will remain available.
--- NOTE | 2019-07-09 05:10 | NUR ---
SHIFT SUMMARY: DAVID IS AOX3, INDEPENDENT MOSTLY IN THE ROOM WITH NON-WT BEARING ON HIS LEFT FOOT. HE DOES WELL TO NOT USE IT BUT THERE IS TIMES WITH TRANSFERS HE PUTS SMALL AMOUNT OF WEIGHT FOR SHORT PERIOD OF TIME ON IT. HE WENT OUTSIDE AT BEGINNING OF SHIFT TO HAVE A CIGRETTE CAME BACK AND HAS BEEN DOING WELL. HE WAS PLACED ON A SLEEP STUDY FOR THE NIGHT AND HAS BEEN UP AND DOWN THROUGHOUT THE NIGHT. PAIN HAS BEEN MANAGED WITH CURRENT TREATMENTS. HE HAS NOT HAD ANY COMPLAINTS OR CONCERNS THIS SHIFT. VS HAVE REMAINED STABLE AND WITH IN NORMAL LIMITS. MEDS WERE GIVEN PER EMAR. DRESSINGS WERE CHANGED YESTERDAY AND REMAINED INTAKE THROUGHOUT THE NIGHT. WILL REPORT TO DAY SHIFT RN.
--- NOTE | 2019-07-09 08:00 | NUR ---
PT PLEASANT COOP A/O. STATES SOME PAIN AT THIS TIME. IN FEET. H/R REG, NO MURMER NOTED. NO TELE. LUNGS CLEAR, RESP EASY, UNLABORED. ON R/A. BT HYPO. LAST BM YEST. VOIDS URINAL. 1 ASST TO BATHROOM. FOOT WRAPPED PER DR. NO BLEEDING NOTED. BED IN LOW POSITION, CALL LITE IN REACH, CALLS APPRP.
--- NOTE | 2019-07-09 15:06 | NUR ---
SPOKE TO DR CAMPOS. NEEDS POWERGLIDE FOR ABX FOR [address]GEL MACHADO TO PLACE FOR D/C.
--- NOTE | 2019-07-09 15:15 | NUR ---
PENDING FOR DISCHARGE TO [facility]. IV PULLED INTACT. SPOKE TO DR CAMPOS. POWERGLIDE TO PLACE. NEEDS ABX 2 WEEKS.
--- NOTE | 2019-07-09 15:47 | NUR ---
PT D/C TO [facility]. AT 1546. POWERGLIDE PLACED PER DR CAMPOS.
--- NOTE | 2019-07-09 16:13 | NUR ---
1545 CALLED JEISON MACHADO AT [facility]. REPORT GIVEN.
[2019-07-09] MEDS ORDERED: Coreg12.5 MG PO (16:18)
[2019-07-09] MEDS ORDERED: Acetaminophen325 M1 PO (16:20)
[2019-07-09] MEDS ORDERED: ATOR40TA PO (16:20)
[2019-07-09] MEDS ORDERED: ASCO500 PO (16:20)
[2019-07-09] MEDS ORDERED: BASAGLAR K100 UNIT/1 SC (16:21)
[2019-07-09] MEDS ORDERED: Ancef/Kefzol1000 MG IV (16:21)
[2019-07-09] MEDS ORDERED: QUET25 PO (16:21)
[2019-07-09] MEDS ORDERED: Docusate Sodiu100 M1 PO (16:21)
[2019-07-09] MEDS ORDERED: ZINC30 MG PO (16:22)
[2019-07-09] MEDS ORDERED: INSULIN LI100 UNIT/2 SC (16:22)
== END 2019-07-09 15:45 | DRG 239 ==
LOC: ER 13:45 → MEDS 18:23 → SURS 18:23 → MEDS 20:03 → ENPENDDIS 07-09 13:04 → MEDS 07-09 15:45
PROVIDERS: Family Medicine; Internal Medicine Gastroenterology; Pharmacist; Physician Assistant; Podiatrist Foot & Ankle Surgery; ADMIT Internal Medicine
PROC: 0Y6N0ZB Detachment at Left Foot, Partial 2nd Ray, Open Approach (ICD-10-PCS; 2019-07-04)
PROC: 0Y6N0ZC Detachment at Left Foot, Partial 3rd Ray, Open Approach (ICD-10-PCS; 2019-07-04)
PROC: 0Y6N0ZD Detachment at Left Foot, Partial 4th Ray, Open Approach (ICD-10-PCS; 2019-07-04)
PROC: 0Y6N0ZF Detachment at Left Foot, Partial 5th Ray, Open Approach (ICD-10-PCS; 2019-07-04)
PROC: 0Y6N0Z9 Detachment at Left Foot, Partial 1st Ray, Open Approach (ICD-10-PCS; principal; 2019-07-04 13:00)
DX: E11.52 Type 2 diabetes mellitus with diabetic peripheral angiopathy with gangrene (principal); A48.0 Gas gangrene; L03.116 Cellulitis of left lower limb; F11.20 Opioid dependence, uncomplicated; F31.0 Bipolar disorder, current episode hypomanic; E11.621 Type 2 diabetes mellitus with foot ulcer; Z79.82 Long term (current) use of aspirin; Z79.84 Long term (current) use of oral hypoglycemic drugs; N18.3 Chronic kidney disease, stage 3 (moderate); E03.9 Hypothyroidism, unspecified; N40.0 Benign prostatic hyperplasia without lower urinary tract symptoms; Z90.49 Acquired absence of other specified parts of digestive tract; Z87.891 Personal history of nicotine dependence; F41.9 Anxiety disorder, unspecified; I12.9 Hypertensive chronic kidney disease with stage 1 through stage 4 chronic kidney disease, or unspecified chronic kidney disease; I25.10 Atherosclerotic heart disease of native coronary artery without angina pectoris; E87.5 Hyperkalemia; E11.42 Type 2 diabetes mellitus with diabetic polyneuropathy; E78.00 Pure hypercholesterolemia, unspecified; E11.65 Type 2 diabetes mellitus with hyperglycemia; D72.829 Elevated white blood cell count, unspecified; I27.20 Pulmonary hypertension, unspecified; L97.524 Non-pressure chronic ulcer of other part of left foot with necrosis of bone
CPT/HCPCS: 36415; 71045; 80048; 80053; 80069; 80202; 82947; 83605; 83735; 83880; 85025; 85651; 86140; 87040; 88307; 88311; 93005; 93010; 93306; 94762; 96361; 96365; 96375; 97110; 97116; 97162; 97166; 97530; 97535; 99285-25; A9270; C1751; J0330; J0690; J1170; J1650; J1815; J1940; J2250; J2405; J2543; J2704; J2710; J3010; J3370; J7030; J7050; J7120

== ENCOUNTER 2019-07-24 00:39 | Day surgery (SDC) | payer OTHER ==
[~2019-07-24 00:39] MED LIST changes: +ASCO500 PO; +ATOR40TA PO; +Acetaminophen325 M1 PO; +Ancef/Kefzol1000 MG IV; +BASAGLAR K100 UNIT/1 SC; +Docusate Sodiu100 M1 PO; +FERSU300 PO; +FURO20 PO; +INSULIN LI100 UNIT/2 SC; +QUET25 PO; +VITAMIN D31000 UNIT PO; +ZINC30 MG PO
== END 2019-07-24 23:08 | disposition home or self-care (01) ==
LOC: HBO → WOUND 00:39
DX: E11.622 Type 2 diabetes mellitus with other skin ulcer (principal); L97.821 Non-pressure chronic ulcer of other part of left lower leg limited to breakdown of skin; E11.51 Type 2 diabetes mellitus with diabetic peripheral angiopathy without gangrene; I73.9 Peripheral vascular disease, unspecified; E11.40 Type 2 diabetes mellitus with diabetic neuropathy, unspecified; I12.0 Hypertensive chronic kidney disease with stage 5 chronic kidney disease or end stage renal disease; E11.22 Type 2 diabetes mellitus with diabetic chronic kidney disease; N18.6 End stage renal disease; I25.10 Atherosclerotic heart disease of native coronary artery without angina pectoris; F34.9 Persistent mood [affective] disorder, unspecified; F10.20 Alcohol dependence, uncomplicated; G89.4 Chronic pain syndrome; Z95.818 Presence of other cardiac implants and grafts

== ENCOUNTER 2019-07-31 00:11 | Day surgery (SDC) | payer OTHER | END 2019-07-31 23:51 | disposition home or self-care (01) | LOC: WOUND | DX: E11.622 Type 2 diabetes mellitus with other skin ulcer (principal); L97.822 Non-pressure chronic ulcer of other part of left lower leg with fat layer exposed; I25.10 Atherosclerotic heart disease of native coronary artery without angina pectoris; I10 Essential (primary) hypertension; E11.51 Type 2 diabetes mellitus with diabetic peripheral angiopathy without gangrene; E11.42 Type 2 diabetes mellitus with diabetic polyneuropathy; F34.9 Persistent mood [affective] disorder, unspecified; F10.20 Alcohol dependence, uncomplicated; G89.4 Chronic pain syndrome; Z95.818 Presence of other cardiac implants and grafts | CPT/HCPCS: G0463 ==

== ENCOUNTER 2019-08-01 08:35 | Day surgery (SDC) | payer OTHER | END 2019-08-01 23:02 | disposition home or self-care (01) | LOC: WOUND 08:35 | DX: T87.89 Other complications of amputation stump (principal); E11.622 Type 2 diabetes mellitus with other skin ulcer; L97.825 Non-pressure chronic ulcer of other part of left lower leg with muscle involvement without evidence of necrosis; E11.51 Type 2 diabetes mellitus with diabetic peripheral angiopathy without gangrene; I73.9 Peripheral vascular disease, unspecified; E11.42 Type 2 diabetes mellitus with diabetic polyneuropathy; I12.9 Hypertensive chronic kidney disease with stage 1 through stage 4 chronic kidney disease, or unspecified chronic kidney disease; E11.22 Type 2 diabetes mellitus with diabetic chronic kidney disease; N18.6 End stage renal disease; I25.10 Atherosclerotic heart disease of native coronary artery without angina pectoris; F34.9 Persistent mood [affective] disorder, unspecified; F10.20 Alcohol dependence, uncomplicated; G89.4 Chronic pain syndrome; Z95.818 Presence of other cardiac implants and grafts; Z89.432 Acquired absence of left foot; B18.2 Chronic viral hepatitis C; M86.9 Osteomyelitis, unspecified | CPT/HCPCS: 73630; 80053; 82728; 83540; 83550; 85610; 86317; 86704; 87340; 87389 ==

== ENCOUNTER 2019-08-04 08:52 | Day surgery (SDC) | payer OTHER | END 2019-08-04 23:07 | disposition home or self-care (01) | LOC: WOUND 08:52 | DX: E11.622 Type 2 diabetes mellitus with other skin ulcer (principal); L97.821 Non-pressure chronic ulcer of other part of left lower leg limited to breakdown of skin; I25.10 Atherosclerotic heart disease of native coronary artery without angina pectoris; I10 Essential (primary) hypertension; E11.51 Type 2 diabetes mellitus with diabetic peripheral angiopathy without gangrene; E11.42 Type 2 diabetes mellitus with diabetic polyneuropathy; F31.9 Bipolar disorder, unspecified; F10.20 Alcohol dependence, uncomplicated; Z95.818 Presence of other cardiac implants and grafts ==

== ENCOUNTER 2019-08-06 00:20 | Day surgery (SDC) | payer OTHER | END 2019-08-06 23:15 | disposition home or self-care (01) | LOC: WOUND 00:20 | DX: T87.89 Other complications of amputation stump (principal); E11.621 Type 2 diabetes mellitus with foot ulcer; E11.622 Type 2 diabetes mellitus with other skin ulcer; L97.523 Non-pressure chronic ulcer of other part of left foot with necrosis of muscle; L97.822 Non-pressure chronic ulcer of other part of left lower leg with fat layer exposed; E11.42 Type 2 diabetes mellitus with diabetic polyneuropathy; E11.51 Type 2 diabetes mellitus with diabetic peripheral angiopathy without gangrene; I73.9 Peripheral vascular disease, unspecified; I12.0 Hypertensive chronic kidney disease with stage 5 chronic kidney disease or end stage renal disease; E11.22 Type 2 diabetes mellitus with diabetic chronic kidney disease; N18.6 End stage renal disease; I25.10 Atherosclerotic heart disease of native coronary artery without angina pectoris; F34.9 Persistent mood [affective] disorder, unspecified; F10.20 Alcohol dependence, uncomplicated; G89.4 Chronic pain syndrome; Z89.422 Acquired absence of other left toe(s); Z95.818 Presence of other cardiac implants and grafts ==

== ENCOUNTER 2019-08-11 00:21 | Day surgery (SDC) | payer OTHER | END 2019-08-11 22:52 | disposition home or self-care (01) | LOC: WOUND 00:21 | DX: T81.89XA Other complications of procedures, not elsewhere classified, initial encounter (principal); E11.622 Type 2 diabetes mellitus with other skin ulcer; L97.821 Non-pressure chronic ulcer of other part of left lower leg limited to breakdown of skin; E11.621 Type 2 diabetes mellitus with foot ulcer; E11.51 Type 2 diabetes mellitus with diabetic peripheral angiopathy without gangrene; F34.9 Persistent mood [affective] disorder, unspecified; F10.20 Alcohol dependence, uncomplicated; G89.4 Chronic pain syndrome; I25.10 Atherosclerotic heart disease of native coronary artery without angina pectoris; E11.42 Type 2 diabetes mellitus with diabetic polyneuropathy; Z95.818 Presence of other cardiac implants and grafts; Z89.422 Acquired absence of other left toe(s) ==

== ENCOUNTER 2019-08-18 00:26 | Day surgery (SDC) | payer OTHER | END 2019-08-18 23:23 | disposition home or self-care (01) | LOC: WOUND 00:26 | DX: E11.621 Type 2 diabetes mellitus with foot ulcer (principal); E11.622 Type 2 diabetes mellitus with other skin ulcer; L97.525 Non-pressure chronic ulcer of other part of left foot with muscle involvement without evidence of necrosis; L97.821 Non-pressure chronic ulcer of other part of left lower leg limited to breakdown of skin; E11.51 Type 2 diabetes mellitus with diabetic peripheral angiopathy without gangrene; I73.9 Peripheral vascular disease, unspecified; E11.42 Type 2 diabetes mellitus with diabetic polyneuropathy; I12.0 Hypertensive chronic kidney disease with stage 5 chronic kidney disease or end stage renal disease; E11.22 Type 2 diabetes mellitus with diabetic chronic kidney disease; N18.6 End stage renal disease; I25.10 Atherosclerotic heart disease of native coronary artery without angina pectoris; F34.9 Persistent mood [affective] disorder, unspecified; F10.20 Alcohol dependence, uncomplicated; G89.4 Chronic pain syndrome; Z95.818 Presence of other cardiac implants and grafts; Z89.422 Acquired absence of other left toe(s) ==

== ENCOUNTER 2019-08-20 11:02 | Day surgery (SDC) | payer OTHER | END 2019-08-20 22:46 | disposition home or self-care (01) | LOC: WOUND 11:02 | DX: T87.89 Other complications of amputation stump (principal); E11.621 Type 2 diabetes mellitus with foot ulcer; E11.622 Type 2 diabetes mellitus with other skin ulcer; L97.525 Non-pressure chronic ulcer of other part of left foot with muscle involvement without evidence of necrosis; L97.821 Non-pressure chronic ulcer of other part of left lower leg limited to breakdown of skin; E11.42 Type 2 diabetes mellitus with diabetic polyneuropathy; E11.51 Type 2 diabetes mellitus with diabetic peripheral angiopathy without gangrene; I73.9 Peripheral vascular disease, unspecified; I12.0 Hypertensive chronic kidney disease with stage 5 chronic kidney disease or end stage renal disease; E11.22 Type 2 diabetes mellitus with diabetic chronic kidney disease; N18.6 End stage renal disease; I25.10 Atherosclerotic heart disease of native coronary artery without angina pectoris; F34.9 Persistent mood [affective] disorder, unspecified; F10.20 Alcohol dependence, uncomplicated; G89.4 Chronic pain syndrome; Z95.818 Presence of other cardiac implants and grafts; Z89.422 Acquired absence of other left toe(s) ==

== ENCOUNTER 2019-08-27 00:26 | Day surgery (SDC) | payer OTHER | END 2019-08-27 23:04 | disposition home or self-care (01) | LOC: WOUND 00:26 | DX: T87.89 Other complications of amputation stump (principal); E11.622 Type 2 diabetes mellitus with other skin ulcer; L97.825 Non-pressure chronic ulcer of other part of left lower leg with muscle involvement without evidence of necrosis; E11.40 Type 2 diabetes mellitus with diabetic neuropathy, unspecified; E11.51 Type 2 diabetes mellitus with diabetic peripheral angiopathy without gangrene; I73.9 Peripheral vascular disease, unspecified; I12.0 Hypertensive chronic kidney disease with stage 5 chronic kidney disease or end stage renal disease; E11.22 Type 2 diabetes mellitus with diabetic chronic kidney disease; N18.6 End stage renal disease; I25.10 Atherosclerotic heart disease of native coronary artery without angina pectoris; F34.9 Persistent mood [affective] disorder, unspecified; F10.20 Alcohol dependence, uncomplicated; G89.4 Chronic pain syndrome; Z89.422 Acquired absence of other left toe(s); Z95.818 Presence of other cardiac implants and grafts ==

== ENCOUNTER 2019-08-29 00:46 | Day surgery (SDC) | payer OTHER | END 2019-08-29 23:19 | disposition home or self-care (01) | LOC: WOUND 00:46 | DX: T87.89 Other complications of amputation stump (principal); E11.621 Type 2 diabetes mellitus with foot ulcer; L97.522 Non-pressure chronic ulcer of other part of left foot with fat layer exposed; E11.622 Type 2 diabetes mellitus with other skin ulcer; L97.822 Non-pressure chronic ulcer of other part of left lower leg with fat layer exposed; E11.51 Type 2 diabetes mellitus with diabetic peripheral angiopathy without gangrene; F34.9 Persistent mood [affective] disorder, unspecified; F10.20 Alcohol dependence, uncomplicated; G89.4 Chronic pain syndrome; I25.10 Atherosclerotic heart disease of native coronary artery without angina pectoris; E11.42 Type 2 diabetes mellitus with diabetic polyneuropathy; Z89.422 Acquired absence of other left toe(s); Z95.818 Presence of other cardiac implants and grafts ==

== ENCOUNTER 2019-09-03 11:12 | Day surgery (SDC) | payer OTHER | END 2019-09-03 22:44 | disposition home or self-care (01) | LOC: WOUND 11:12 | DX: E11.622 Type 2 diabetes mellitus with other skin ulcer (principal); L97.822 Non-pressure chronic ulcer of other part of left lower leg with fat layer exposed; E11.51 Type 2 diabetes mellitus with diabetic peripheral angiopathy without gangrene; I10 Essential (primary) hypertension; E11.42 Type 2 diabetes mellitus with diabetic polyneuropathy; F43.9 Reaction to severe stress, unspecified; F10.20 Alcohol dependence, uncomplicated; G89.4 Chronic pain syndrome; I25.10 Atherosclerotic heart disease of native coronary artery without angina pectoris; Z95.818 Presence of other cardiac implants and grafts; Z89.422 Acquired absence of other left toe(s); Z79.82 Long term (current) use of aspirin; Z79.4 Long term (current) use of insulin; Z79.899 Other long term (current) drug therapy ==

== ENCOUNTER 2019-09-11 08:04 | Day surgery (SDC) | payer OTHER | END 2019-09-11 23:15 | disposition home or self-care (01) | LOC: WOUND 08:04 | DX: T87.89 Other complications of amputation stump (principal); E11.622 Type 2 diabetes mellitus with other skin ulcer; L97.825 Non-pressure chronic ulcer of other part of left lower leg with muscle involvement without evidence of necrosis; E11.51 Type 2 diabetes mellitus with diabetic peripheral angiopathy without gangrene; I73.9 Peripheral vascular disease, unspecified; E11.42 Type 2 diabetes mellitus with diabetic polyneuropathy; E11.22 Type 2 diabetes mellitus with diabetic chronic kidney disease; N18.6 End stage renal disease; I25.10 Atherosclerotic heart disease of native coronary artery without angina pectoris; F34.9 Persistent mood [affective] disorder, unspecified; F10.20 Alcohol dependence, uncomplicated; G89.4 Chronic pain syndrome; Z89.422 Acquired absence of other left toe(s); Z95.818 Presence of other cardiac implants and grafts ==

== ENCOUNTER 2019-09-19 13:00 | Day surgery (SDC) | payer OTHER | END 2019-09-19 23:56 | disposition home or self-care (01) | LOC: WOUND 13:00 | DX: E11.622 Type 2 diabetes mellitus with other skin ulcer (principal); L97.822 Non-pressure chronic ulcer of other part of left lower leg with fat layer exposed; S90.822D Blister (nonthermal), left foot, subsequent encounter; I10 Essential (primary) hypertension; E11.42 Type 2 diabetes mellitus with diabetic polyneuropathy; F34.9 Persistent mood [affective] disorder, unspecified; E11.51 Type 2 diabetes mellitus with diabetic peripheral angiopathy without gangrene; F10.20 Alcohol dependence, uncomplicated; G89.4 Chronic pain syndrome; L89.893 Pressure ulcer of other site, stage 3; I25.10 Atherosclerotic heart disease of native coronary artery without angina pectoris; Z89.422 Acquired absence of other left toe(s); Z95.818 Presence of other cardiac implants and grafts; Z79.82 Long term (current) use of aspirin; Z79.4 Long term (current) use of insulin; Z79.899 Other long term (current) drug therapy | CPT/HCPCS: 87102 ==

== ENCOUNTER 2019-09-26 10:47 | Day surgery (SDC) | payer OTHER | END 2019-09-26 22:52 | disposition home or self-care (01) | LOC: WOUND 10:47 | DX: E11.622 Type 2 diabetes mellitus with other skin ulcer (principal); L97.822 Non-pressure chronic ulcer of other part of left lower leg with fat layer exposed; S90.822D Blister (nonthermal), left foot, subsequent encounter; I25.10 Atherosclerotic heart disease of native coronary artery without angina pectoris; I10 Essential (primary) hypertension; E11.42 Type 2 diabetes mellitus with diabetic polyneuropathy; E11.51 Type 2 diabetes mellitus with diabetic peripheral angiopathy without gangrene; Z89.422 Acquired absence of other left toe(s); Z79.899 Other long term (current) drug therapy; Z79.82 Long term (current) use of aspirin; Z79.4 Long term (current) use of insulin ==

== ENCOUNTER 2019-10-01 00:18 | Day surgery (SDC) | payer OTHER | END 2019-10-01 22:44 | disposition home or self-care (01) | LOC: WOUND 00:18 | DX: E11.622 Type 2 diabetes mellitus with other skin ulcer (principal); L97.822 Non-pressure chronic ulcer of other part of left lower leg with fat layer exposed; I10 Essential (primary) hypertension; E11.42 Type 2 diabetes mellitus with diabetic polyneuropathy; E11.51 Type 2 diabetes mellitus with diabetic peripheral angiopathy without gangrene; I25.10 Atherosclerotic heart disease of native coronary artery without angina pectoris; F34.9 Persistent mood [affective] disorder, unspecified; F10.20 Alcohol dependence, uncomplicated; G89.4 Chronic pain syndrome; Z95.818 Presence of other cardiac implants and grafts; Z89.422 Acquired absence of other left toe(s); Z79.82 Long term (current) use of aspirin; Z79.899 Other long term (current) drug therapy; Z79.4 Long term (current) use of insulin ==

== ENCOUNTER 2019-10-08 11:16 | Day surgery (SDC) | payer OTHER | END 2019-10-08 23:09 | disposition home or self-care (01) | LOC: WOUND 11:16 | DX: T87.89 Other complications of amputation stump (principal); T87.54 Necrosis of amputation stump, left lower extremity; L97.821 Non-pressure chronic ulcer of other part of left lower leg limited to breakdown of skin; L89.893 Pressure ulcer of other site, stage 3; E11.621 Type 2 diabetes mellitus with foot ulcer; E11.52 Type 2 diabetes mellitus with diabetic peripheral angiopathy with gangrene; I96 Gangrene, not elsewhere classified; I25.10 Atherosclerotic heart disease of native coronary artery without angina pectoris; E11.42 Type 2 diabetes mellitus with diabetic polyneuropathy; F34.9 Persistent mood [affective] disorder, unspecified; F10.20 Alcohol dependence, uncomplicated; I12.0 Hypertensive chronic kidney disease with stage 5 chronic kidney disease or end stage renal disease; E11.22 Type 2 diabetes mellitus with diabetic chronic kidney disease; N18.6 End stage renal disease; G89.4 Chronic pain syndrome; Z79.82 Long term (current) use of aspirin; Z79.4 Long term (current) use of insulin; Z79.899 Other long term (current) drug therapy; Y83.5 Amputation of limb(s) as the cause of abnormal reaction of the patient, or of later complication, without mention of misadventure at the time of the procedure | CPT/HCPCS: 87071; 87075; 87205 ==

== ENCOUNTER 2019-10-10 15:06 | Day surgery (SDC) | payer OTHER | END 2019-10-10 23:06 | disposition home or self-care (01) | LOC: WOUND 15:06 | DX: T87.89 Other complications of amputation stump (principal); T87.54 Necrosis of amputation stump, left lower extremity; E11.621 Type 2 diabetes mellitus with foot ulcer; L97.822 Non-pressure chronic ulcer of other part of left lower leg with fat layer exposed; E11.52 Type 2 diabetes mellitus with diabetic peripheral angiopathy with gangrene; I96 Gangrene, not elsewhere classified; L89.899 Pressure ulcer of other site, unspecified stage; E11.42 Type 2 diabetes mellitus with diabetic polyneuropathy; I25.10 Atherosclerotic heart disease of native coronary artery without angina pectoris; F34.9 Persistent mood [affective] disorder, unspecified; F10.20 Alcohol dependence, uncomplicated; G89.4 Chronic pain syndrome; Z79.82 Long term (current) use of aspirin; Z79.4 Long term (current) use of insulin; Z79.899 Other long term (current) drug therapy; Y83.5 Amputation of limb(s) as the cause of abnormal reaction of the patient, or of later complication, without mention of misadventure at the time of the procedure ==

== ENCOUNTER 2019-10-13 15:08 | Day surgery (SDC) | payer OTHER | END 2019-10-13 22:41 | disposition home or self-care (01) | LOC: WOUND 15:08 | DX: E11.622 Type 2 diabetes mellitus with other skin ulcer (principal); L97.822 Non-pressure chronic ulcer of other part of left lower leg with fat layer exposed; E11.42 Type 2 diabetes mellitus with diabetic polyneuropathy; E11.51 Type 2 diabetes mellitus with diabetic peripheral angiopathy without gangrene; I25.10 Atherosclerotic heart disease of native coronary artery without angina pectoris; I10 Essential (primary) hypertension; S90.822D Blister (nonthermal), left foot, subsequent encounter; S91.302D Unspecified open wound, left foot, subsequent encounter; F34.9 Persistent mood [affective] disorder, unspecified; F10.20 Alcohol dependence, uncomplicated; G89.4 Chronic pain syndrome; Z89.422 Acquired absence of other left toe(s); Z79.899 Other long term (current) drug therapy; Z79.4 Long term (current) use of insulin ==

== ENCOUNTER 2019-10-15 11:06 | Day surgery (SDC) | payer OTHER | END 2019-10-15 23:50 | disposition home or self-care (01) | LOC: WOUND 11:06 | DX: E11.622 Type 2 diabetes mellitus with other skin ulcer (principal); L97.822 Non-pressure chronic ulcer of other part of left lower leg with fat layer exposed; E11.42 Type 2 diabetes mellitus with diabetic polyneuropathy; E11.51 Type 2 diabetes mellitus with diabetic peripheral angiopathy without gangrene; I25.10 Atherosclerotic heart disease of native coronary artery without angina pectoris; I10 Essential (primary) hypertension; S90.822D Blister (nonthermal), left foot, subsequent encounter; S91.302D Unspecified open wound, left foot, subsequent encounter; F34.9 Persistent mood [affective] disorder, unspecified; F10.20 Alcohol dependence, uncomplicated; G89.4 Chronic pain syndrome; Z89.422 Acquired absence of other left toe(s); Z79.899 Other long term (current) drug therapy; Z79.82 Long term (current) use of aspirin; Z79.4 Long term (current) use of insulin | CPT/HCPCS: 87071; 87075; 87205; 88305; 88311 ==

== ENCOUNTER 2019-10-20 10:33 | Day surgery (SDC) | payer OTHER | END 2019-10-20 22:39 | disposition home or self-care (01) | LOC: WOUND 10:33 | DX: E11.621 Type 2 diabetes mellitus with foot ulcer (principal); L97.822 Non-pressure chronic ulcer of other part of left lower leg with fat layer exposed; E11.42 Type 2 diabetes mellitus with diabetic polyneuropathy; E11.51 Type 2 diabetes mellitus with diabetic peripheral angiopathy without gangrene; I25.10 Atherosclerotic heart disease of native coronary artery without angina pectoris; I10 Essential (primary) hypertension; F34.9 Persistent mood [affective] disorder, unspecified; F10.20 Alcohol dependence, uncomplicated; G89.4 Chronic pain syndrome; Z89.422 Acquired absence of other left toe(s); Z79.82 Long term (current) use of aspirin; Z79.84 Long term (current) use of oral hypoglycemic drugs; Z79.899 Other long term (current) drug therapy ==

== ENCOUNTER 2019-10-24 11:29 | Day surgery (SDC) | payer OTHER | END 2019-10-24 23:51 | disposition home or self-care (01) | LOC: WOUND 11:29 | DX: E11.622 Type 2 diabetes mellitus with other skin ulcer (principal); L97.822 Non-pressure chronic ulcer of other part of left lower leg with fat layer exposed; I10 Essential (primary) hypertension; E11.42 Type 2 diabetes mellitus with diabetic polyneuropathy; E11.51 Type 2 diabetes mellitus with diabetic peripheral angiopathy without gangrene; I25.10 Atherosclerotic heart disease of native coronary artery without angina pectoris; S90.822D Blister (nonthermal), left foot, subsequent encounter; S91.302D Unspecified open wound, left foot, subsequent encounter; F34.9 Persistent mood [affective] disorder, unspecified; F10.20 Alcohol dependence, uncomplicated; G89.4 Chronic pain syndrome; Z89.422 Acquired absence of other left toe(s); Z79.899 Other long term (current) drug therapy; Z79.4 Long term (current) use of insulin | CPT/HCPCS: G0463 ==

== ENCOUNTER 2019-10-27 10:35 | Day surgery (SDC) | payer OTHER | END 2019-10-27 22:55 | disposition home or self-care (01) | LOC: WOUND 10:35 | DX: E11.622 Type 2 diabetes mellitus with other skin ulcer (principal); E11.51 Type 2 diabetes mellitus with diabetic peripheral angiopathy without gangrene; E11.42 Type 2 diabetes mellitus with diabetic polyneuropathy; L97.821 Non-pressure chronic ulcer of other part of left lower leg limited to breakdown of skin; S90.822D Blister (nonthermal), left foot, subsequent encounter; M86.372 Chronic multifocal osteomyelitis, left ankle and foot; S91.302D Unspecified open wound, left foot, subsequent encounter; F34.9 Persistent mood [affective] disorder, unspecified; F10.20 Alcohol dependence, uncomplicated; G89.4 Chronic pain syndrome; Z89.422 Acquired absence of other left toe(s) ==

== ENCOUNTER 2019-11-03 10:28 | Day surgery (SDC) | payer OTHER | END 2019-11-03 22:58 | disposition home or self-care (01) | LOC: WOUND 10:28 | DX: E11.622 Type 2 diabetes mellitus with other skin ulcer (principal); L97.822 Non-pressure chronic ulcer of other part of left lower leg with fat layer exposed; I10 Essential (primary) hypertension; E11.42 Type 2 diabetes mellitus with diabetic polyneuropathy; E11.51 Type 2 diabetes mellitus with diabetic peripheral angiopathy without gangrene; I25.10 Atherosclerotic heart disease of native coronary artery without angina pectoris; S91.302D Unspecified open wound, left foot, subsequent encounter; M86.372 Chronic multifocal osteomyelitis, left ankle and foot; S90.822D Blister (nonthermal), left foot, subsequent encounter; F34.9 Persistent mood [affective] disorder, unspecified; F10.20 Alcohol dependence, uncomplicated; G89.4 Chronic pain syndrome; Z89.422 Acquired absence of other left toe(s); Z79.82 Long term (current) use of aspirin; Z79.899 Other long term (current) drug therapy; Z79.4 Long term (current) use of insulin ==

== ENCOUNTER 2019-11-06 00:21 | Day surgery (SDC) | payer OTHER | END 2019-11-06 23:24 | disposition home or self-care (01) | LOC: WOUND 00:21 | DX: T87.89 Other complications of amputation stump (principal); T87.54 Necrosis of amputation stump, left lower extremity; E11.621 Type 2 diabetes mellitus with foot ulcer; L97.822 Non-pressure chronic ulcer of other part of left lower leg with fat layer exposed; E11.52 Type 2 diabetes mellitus with diabetic peripheral angiopathy with gangrene; I96 Gangrene, not elsewhere classified; E11.69 Type 2 diabetes mellitus with other specified complication; M86.8X7 Other osteomyelitis, ankle and foot; I25.10 Atherosclerotic heart disease of native coronary artery without angina pectoris; E11.42 Type 2 diabetes mellitus with diabetic polyneuropathy; I12.0 Hypertensive chronic kidney disease with stage 5 chronic kidney disease or end stage renal disease; E11.22 Type 2 diabetes mellitus with diabetic chronic kidney disease; N18.6 End stage renal disease; F34.9 Persistent mood [affective] disorder, unspecified; F10.20 Alcohol dependence, uncomplicated; G89.4 Chronic pain syndrome; Z95.818 Presence of other cardiac implants and grafts; Z89.442 Acquired absence of left ankle; Z79.82 Long term (current) use of aspirin; Z79.899 Other long term (current) drug therapy; Z79.4 Long term (current) use of insulin; Y83.5 Amputation of limb(s) as the cause of abnormal reaction of the patient, or of later complication, without mention of misadventure at the time of the procedure | CPT/HCPCS: 87071; 87075; 87076; 87077; 87185; 87186; 87205 ==

== ENCOUNTER 2019-11-10 14:39 | Day surgery (SDC) | payer OTHER | END 2019-11-10 22:42 | disposition home or self-care (01) | LOC: WOUND 14:39 | DX: T87.89 Other complications of amputation stump (principal); T87.54 Necrosis of amputation stump, left lower extremity; E11.621 Type 2 diabetes mellitus with foot ulcer; L97.822 Non-pressure chronic ulcer of other part of left lower leg with fat layer exposed; S81.802A Unspecified open wound, left lower leg, initial encounter; E11.52 Type 2 diabetes mellitus with diabetic peripheral angiopathy with gangrene; I96 Gangrene, not elsewhere classified; E11.69 Type 2 diabetes mellitus with other specified complication; M86.8X7 Other osteomyelitis, ankle and foot; I25.10 Atherosclerotic heart disease of native coronary artery without angina pectoris; E11.42 Type 2 diabetes mellitus with diabetic polyneuropathy; I12.0 Hypertensive chronic kidney disease with stage 5 chronic kidney disease or end stage renal disease; E11.22 Type 2 diabetes mellitus with diabetic chronic kidney disease; N18.6 End stage renal disease; F34.9 Persistent mood [affective] disorder, unspecified; G89.4 Chronic pain syndrome; Z95.818 Presence of other cardiac implants and grafts; Z89.442 Acquired absence of left ankle; Z79.82 Long term (current) use of aspirin; Z79.4 Long term (current) use of insulin; Z79.899 Other long term (current) drug therapy; Y83.5 Amputation of limb(s) as the cause of abnormal reaction of the patient, or of later complication, without mention of misadventure at the time of the procedure; X58.XXXA Exposure to other specified factors, initial encounter | CPT/HCPCS: 82947 ==

== ENCOUNTER 2019-11-13 00:39 | Day surgery (SDC) | payer OTHER ==
[~2019-11-13] VITALS: Ht 188 cm; Wt 104.5 kg
--- NOTE | 2019-11-13 18:47 | NUR ---
NOT ABLE TO ACCESS IV SITE. VERONICA Phillips RN ATTEMPT X1. THIS RN ATTEMPT X2 NOT ABLE TO THREAD CATHETER. LAB CALLED FOR A PERIPHERAL DRAW. PT DC'D AFTER LAB DRAW AND BRIGETTE BASILIO DATA PROCESSING OPERATOR AWARE AND PT TO RETURN TOMORROW FOR POWERGLIDE PLACEMENT.
[2019-11-14] MEDS ORDERED: Metformin HCl750 MG PO (15:18)
[2019-11-14] MEDS ORDERED: HYDMOR8 PO (15:19)
[2019-11-14] MEDS ORDERED: METR500 PO (15:20)
[2019-11-14] MEDS ORDERED: GLIP5 PO (15:22)
[2019-11-14] MEDS ORDERED: Glyburide5 MG PO (15:30)
== END 2019-11-13 23:13 | disposition home or self-care (01) ==
LOC: ATC 00:39
DX: E11.621 Type 2 diabetes mellitus with foot ulcer (principal); L97.521 Non-pressure chronic ulcer of other part of left foot limited to breakdown of skin; E11.622 Type 2 diabetes mellitus with other skin ulcer; L97.822 Non-pressure chronic ulcer of other part of left lower leg with fat layer exposed; E11.51 Type 2 diabetes mellitus with diabetic peripheral angiopathy without gangrene; E11.42 Type 2 diabetes mellitus with diabetic polyneuropathy; F34.9 Persistent mood [affective] disorder, unspecified; F10.20 Alcohol dependence, uncomplicated; G89.4 Chronic pain syndrome; I25.10 Atherosclerotic heart disease of native coronary artery without angina pectoris; B95.62 Methicillin resistant Staphylococcus aureus infection as the cause of diseases classified elsewhere; Z79.2 Long term (current) use of antibiotics; Z79.82 Long term (current) use of aspirin; Z79.4 Long term (current) use of insulin; Z79.899 Other long term (current) drug therapy
CPT/HCPCS: 36415; 82565; 99211; J3370; J7050

== ENCOUNTER 2019-11-13 12:42 | Day surgery (SDC) | payer OTHER ==
[2019-11-14] MEDS ORDERED: Metformin HCl750 MG PO (15:18)
[2019-11-14] MEDS ORDERED: HYDMOR8 PO (15:19)
[2019-11-14] MEDS ORDERED: METR500 PO (15:20)
[2019-11-14] MEDS ORDERED: GLIP5 PO (15:22)
[2019-11-14] MEDS ORDERED: Glyburide5 MG PO (15:30)
== END 2019-11-13 23:13 | disposition home or self-care (01) ==
LOC: WOUND 12:42
DX: T87.89 Other complications of amputation stump (principal); T87.54 Necrosis of amputation stump, left lower extremity; E11.621 Type 2 diabetes mellitus with foot ulcer; L97.523 Non-pressure chronic ulcer of other part of left foot with necrosis of muscle; E11.622 Type 2 diabetes mellitus with other skin ulcer; L97.822 Non-pressure chronic ulcer of other part of left lower leg with fat layer exposed; E11.52 Type 2 diabetes mellitus with diabetic peripheral angiopathy with gangrene; I96 Gangrene, not elsewhere classified; S90.822A Blister (nonthermal), left foot, initial encounter; I25.10 Atherosclerotic heart disease of native coronary artery without angina pectoris; E11.42 Type 2 diabetes mellitus with diabetic polyneuropathy; F34.9 Persistent mood [affective] disorder, unspecified; F10.20 Alcohol dependence, uncomplicated; G89.4 Chronic pain syndrome; B95.62 Methicillin resistant Staphylococcus aureus infection as the cause of diseases classified elsewhere; E11.69 Type 2 diabetes mellitus with other specified complication; M86.372 Chronic multifocal osteomyelitis, left ankle and foot; I12.0 Hypertensive chronic kidney disease with stage 5 chronic kidney disease or end stage renal disease; E11.22 Type 2 diabetes mellitus with diabetic chronic kidney disease; N18.6 End stage renal disease; Z89.442 Acquired absence of left ankle; Z79.82 Long term (current) use of aspirin; Z79.4 Long term (current) use of insulin; Z79.899 Other long term (current) drug therapy; Y83.5 Amputation of limb(s) as the cause of abnormal reaction of the patient, or of later complication, without mention of misadventure at the time of the procedure; X58.XXXA Exposure to other specified factors, initial encounter

== ENCOUNTER 2019-11-14 13:20 | Day surgery (SDC) | payer OTHER ==
[2019-11-14] MEDS ORDERED: Metformin HCl750 MG PO (15:18)
[2019-11-14] MEDS ORDERED: HYDMOR8 PO (15:19)
[2019-11-14] MEDS ORDERED: METR500 PO (15:20)
[2019-11-14] MEDS ORDERED: GLIP5 PO (15:22)
[2019-11-14] MEDS ORDERED: Glyburide5 MG PO (15:30)
== END 2019-11-14 23:14 | disposition home or self-care (01) ==
LOC: ATC 13:20
DX: E11.621 Type 2 diabetes mellitus with foot ulcer (principal); L97.521 Non-pressure chronic ulcer of other part of left foot limited to breakdown of skin; E11.622 Type 2 diabetes mellitus with other skin ulcer; L97.822 Non-pressure chronic ulcer of other part of left lower leg with fat layer exposed; E11.51 Type 2 diabetes mellitus with diabetic peripheral angiopathy without gangrene; E11.42 Type 2 diabetes mellitus with diabetic polyneuropathy; F34.9 Persistent mood [affective] disorder, unspecified; F10.20 Alcohol dependence, uncomplicated; G89.4 Chronic pain syndrome; I25.10 Atherosclerotic heart disease of native coronary artery without angina pectoris; L08.9 Local infection of the skin and subcutaneous tissue, unspecified; B95.62 Methicillin resistant Staphylococcus aureus infection as the cause of diseases classified elsewhere; Z79.2 Long term (current) use of antibiotics; Z79.82 Long term (current) use of aspirin; Z79.4 Long term (current) use of insulin; Z79.899 Other long term (current) drug therapy
CPT/HCPCS: 96365; 96366; C1751; J3370; J7050

== ENCOUNTER 2019-11-15 14:05 | Day surgery (SDC) | payer OTHER ==
[~2019-11-15 14:05] MED LIST changes: +GLIP5 PO; +HYDMOR8 PO
== END 2019-11-15 16:28 | disposition home or self-care (01) ==
LOC: ATC 14:05
DX: E11.621 Type 2 diabetes mellitus with foot ulcer (principal); L97.521 Non-pressure chronic ulcer of other part of left foot limited to breakdown of skin; E11.622 Type 2 diabetes mellitus with other skin ulcer; L97.822 Non-pressure chronic ulcer of other part of left lower leg with fat layer exposed; E11.51 Type 2 diabetes mellitus with diabetic peripheral angiopathy without gangrene; E11.42 Type 2 diabetes mellitus with diabetic polyneuropathy; F34.9 Persistent mood [affective] disorder, unspecified; F10.20 Alcohol dependence, uncomplicated; G89.4 Chronic pain syndrome; I25.10 Atherosclerotic heart disease of native coronary artery without angina pectoris; B95.62 Methicillin resistant Staphylococcus aureus infection as the cause of diseases classified elsewhere; Z79.2 Long term (current) use of antibiotics; Z79.82 Long term (current) use of aspirin; Z79.4 Long term (current) use of insulin; Z79.899 Other long term (current) drug therapy
CPT/HCPCS: 96365; 96366; J3370; J7050

== ENCOUNTER 2019-11-16 14:06 | Day surgery (SDC) | payer OTHER ==
[~2019-11-16] VITALS: Ht 188 cm; Wt 104.5 kg
[2019-11-16 14:47] LABS: Creatinine, Blood 1.88 mg/dL (0.60-1.20); Vancomycin, Trough 18.7 ug/mL (5.0-10.0)
== END 2019-11-16 16:50 | disposition home or self-care (01) ==
LOC: ATC 14:06
PROVIDERS: Nurse Practitioner Family
DX: E11.621 Type 2 diabetes mellitus with foot ulcer (principal); L97.521 Non-pressure chronic ulcer of other part of left foot limited to breakdown of skin; E11.622 Type 2 diabetes mellitus with other skin ulcer; L97.822 Non-pressure chronic ulcer of other part of left lower leg with fat layer exposed; E11.51 Type 2 diabetes mellitus with diabetic peripheral angiopathy without gangrene; E11.42 Type 2 diabetes mellitus with diabetic polyneuropathy; F34.9 Persistent mood [affective] disorder, unspecified; F10.20 Alcohol dependence, uncomplicated; G89.4 Chronic pain syndrome; I25.10 Atherosclerotic heart disease of native coronary artery without angina pectoris; B95.62 Methicillin resistant Staphylococcus aureus infection as the cause of diseases classified elsewhere; Z79.2 Long term (current) use of antibiotics; Z79.82 Long term (current) use of aspirin; Z79.4 Long term (current) use of insulin; Z79.899 Other long term (current) drug therapy
CPT/HCPCS: 80202; 82565; 96365; 96366; J3370; J7050

== ENCOUNTER 2019-11-17 10:28 | Day surgery (SDC) | payer OTHER | END 2019-11-17 22:42 | disposition home or self-care (01) | LOC: WOUND 10:28 | DX: T87.89 Other complications of amputation stump (principal); T87.54 Necrosis of amputation stump, left lower extremity; E11.621 Type 2 diabetes mellitus with foot ulcer; L97.523 Non-pressure chronic ulcer of other part of left foot with necrosis of muscle; E11.622 Type 2 diabetes mellitus with other skin ulcer; L97.822 Non-pressure chronic ulcer of other part of left lower leg with fat layer exposed; E11.52 Type 2 diabetes mellitus with diabetic peripheral angiopathy with gangrene; I96 Gangrene, not elsewhere classified; I25.10 Atherosclerotic heart disease of native coronary artery without angina pectoris; F34.9 Persistent mood [affective] disorder, unspecified; I12.0 Hypertensive chronic kidney disease with stage 5 chronic kidney disease or end stage renal disease; E11.22 Type 2 diabetes mellitus with diabetic chronic kidney disease; N18.6 End stage renal disease; S90.822A Blister (nonthermal), left foot, initial encounter; E11.42 Type 2 diabetes mellitus with diabetic polyneuropathy; F10.20 Alcohol dependence, uncomplicated; E11.69 Type 2 diabetes mellitus with other specified complication; M86.372 Chronic multifocal osteomyelitis, left ankle and foot; B95.62 Methicillin resistant Staphylococcus aureus infection as the cause of diseases classified elsewhere; Z89.442 Acquired absence of left ankle; Z79.4 Long term (current) use of insulin; Z79.82 Long term (current) use of aspirin; Z79.899 Other long term (current) drug therapy; Y83.5 Amputation of limb(s) as the cause of abnormal reaction of the patient, or of later complication, without mention of misadventure at the time of the procedure; X58.XXXA Exposure to other specified factors, initial encounter | CPT/HCPCS: 96365; 96366; J3370; J7050 ==

== ENCOUNTER 2019-11-18 00:07 | Day surgery (SDC) | payer OTHER | END 2019-11-18 14:37 | disposition home or self-care (01) | LOC: ATC 00:07 | DX: E11.621 Type 2 diabetes mellitus with foot ulcer (principal); L97.521 Non-pressure chronic ulcer of other part of left foot limited to breakdown of skin; E11.622 Type 2 diabetes mellitus with other skin ulcer; L97.821 Non-pressure chronic ulcer of other part of left lower leg limited to breakdown of skin; L97.822 Non-pressure chronic ulcer of other part of left lower leg with fat layer exposed; E11.51 Type 2 diabetes mellitus with diabetic peripheral angiopathy without gangrene; F34.9 Persistent mood [affective] disorder, unspecified; F10.20 Alcohol dependence, uncomplicated; B95.62 Methicillin resistant Staphylococcus aureus infection as the cause of diseases classified elsewhere; G89.4 Chronic pain syndrome; I25.10 Atherosclerotic heart disease of native coronary artery without angina pectoris; E11.40 Type 2 diabetes mellitus with diabetic neuropathy, unspecified; Z79.2 Long term (current) use of antibiotics; Z79.4 Long term (current) use of insulin; Z79.82 Long term (current) use of aspirin; Z79.899 Other long term (current) drug therapy; Z95.818 Presence of other cardiac implants and grafts | CPT/HCPCS: 96365; 96366; J3370; J7050 ==

== ENCOUNTER 2019-11-19 13:00 | Day surgery (SDC) | payer OTHER ==
[2019-11-19 14:33] LABS: Creatinine, Blood 1.69 mg/dL (0.60-1.20); Vancomycin, Trough 25.6 ug/mL (5.0-10.0)
--- NOTE | 2019-11-19 15:25 | NUR ---
LABS DRAWN AND NO VANCOMYCIN REQUIRED TODAY FOR ELEVATED VANCO TROUGH PER PHARMACY.
== END 2019-11-19 23:59 | disposition home or self-care (01) ==
LOC: ATC 13:00
PROVIDERS: Nurse Practitioner Family
DX: E11.621 Type 2 diabetes mellitus with foot ulcer (principal); L97.521 Non-pressure chronic ulcer of other part of left foot limited to breakdown of skin; E11.622 Type 2 diabetes mellitus with other skin ulcer; B95.62 Methicillin resistant Staphylococcus aureus infection as the cause of diseases classified elsewhere; L97.822 Non-pressure chronic ulcer of other part of left lower leg with fat layer exposed; E11.51 Type 2 diabetes mellitus with diabetic peripheral angiopathy without gangrene; E11.42 Type 2 diabetes mellitus with diabetic polyneuropathy; F34.9 Persistent mood [affective] disorder, unspecified; F10.20 Alcohol dependence, uncomplicated; G89.4 Chronic pain syndrome; I25.10 Atherosclerotic heart disease of native coronary artery without angina pectoris; Z79.2 Long term (current) use of antibiotics; Z79.82 Long term (current) use of aspirin; Z79.4 Long term (current) use of insulin; Z79.899 Other long term (current) drug therapy
CPT/HCPCS: 36415; 80202; 82565; 99211

== ENCOUNTER 2019-11-20 00:13 | Day surgery (SDC) | payer OTHER | END 2019-11-20 15:44 | disposition home or self-care (01) | LOC: ATC 00:13 | DX: E11.621 Type 2 diabetes mellitus with foot ulcer (principal); L97.521 Non-pressure chronic ulcer of other part of left foot limited to breakdown of skin; E11.622 Type 2 diabetes mellitus with other skin ulcer; L97.822 Non-pressure chronic ulcer of other part of left lower leg with fat layer exposed; E11.51 Type 2 diabetes mellitus with diabetic peripheral angiopathy without gangrene; E11.42 Type 2 diabetes mellitus with diabetic polyneuropathy; F34.9 Persistent mood [affective] disorder, unspecified; F10.20 Alcohol dependence, uncomplicated; G89.4 Chronic pain syndrome; I25.10 Atherosclerotic heart disease of native coronary artery without angina pectoris; B95.62 Methicillin resistant Staphylococcus aureus infection as the cause of diseases classified elsewhere; Z79.2 Long term (current) use of antibiotics; Z79.82 Long term (current) use of aspirin; Z79.4 Long term (current) use of insulin; Z79.899 Other long term (current) drug therapy; Z95.818 Presence of other cardiac implants and grafts | CPT/HCPCS: 96365; J3370 ==

== ENCOUNTER 2019-11-21 02:19 | Day surgery (SDC) | payer OTHER ==
--- NOTE | 2019-11-21 15:39 | NUR ---
DRESSING TO LEFT LOWER LEG LOOSE AND SLIDING DOWN HIS LEG. REINFORCED WITH KEERLEX WRAP AND BANDNET.
[2019-11-22] MEDS ORDERED: VANCO 1.251.25 GM/25 IV (17:05)
== END 2019-11-21 15:47 | disposition home or self-care (01) ==
LOC: ATC 02:19
DX: E11.621 Type 2 diabetes mellitus with foot ulcer (principal); L97.521 Non-pressure chronic ulcer of other part of left foot limited to breakdown of skin; E11.622 Type 2 diabetes mellitus with other skin ulcer; L97.822 Non-pressure chronic ulcer of other part of left lower leg with fat layer exposed; E11.51 Type 2 diabetes mellitus with diabetic peripheral angiopathy without gangrene; E11.42 Type 2 diabetes mellitus with diabetic polyneuropathy; F34.9 Persistent mood [affective] disorder, unspecified; F10.20 Alcohol dependence, uncomplicated; G89.4 Chronic pain syndrome; I25.10 Atherosclerotic heart disease of native coronary artery without angina pectoris; B95.62 Methicillin resistant Staphylococcus aureus infection as the cause of diseases classified elsewhere; Z79.2 Long term (current) use of antibiotics; Z79.899 Other long term (current) drug therapy; Z95.818 Presence of other cardiac implants and grafts; Z79.82 Long term (current) use of aspirin; Z79.4 Long term (current) use of insulin
CPT/HCPCS: 96365; J3370

== ENCOUNTER 2019-11-22 13:21 | Day surgery (SDC) | payer OTHER ==
[2019-11-22 14:13] LABS: Vancomycin, Trough 16.8 ug/mL (5.0-10.0)
[2019-11-22] MEDS ORDERED: VANCO 1.251.25 GM/25 IV (17:05)
== END 2019-11-22 16:32 | disposition home or self-care (01) ==
LOC: ATC 13:21
PROVIDERS: Nurse Practitioner Family
DX: E11.621 Type 2 diabetes mellitus with foot ulcer (principal); L97.521 Non-pressure chronic ulcer of other part of left foot limited to breakdown of skin; E11.622 Type 2 diabetes mellitus with other skin ulcer; L97.822 Non-pressure chronic ulcer of other part of left lower leg with fat layer exposed; E11.51 Type 2 diabetes mellitus with diabetic peripheral angiopathy without gangrene; E11.42 Type 2 diabetes mellitus with diabetic polyneuropathy; F34.9 Persistent mood [affective] disorder, unspecified; F10.20 Alcohol dependence, uncomplicated; G89.4 Chronic pain syndrome; I25.10 Atherosclerotic heart disease of native coronary artery without angina pectoris; B95.62 Methicillin resistant Staphylococcus aureus infection as the cause of diseases classified elsewhere; Z79.2 Long term (current) use of antibiotics; Z79.82 Long term (current) use of aspirin; Z79.4 Long term (current) use of insulin; Z79.899 Other long term (current) drug therapy; Z95.818 Presence of other cardiac implants and grafts
CPT/HCPCS: 80202; 82565; 96365; 96366; J3370

== ENCOUNTER 2019-11-23 12:49 | Day surgery (SDC) | payer OTHER ==
[~2019-11-23 12:49] MED LIST changes: +VANCO 1.251.25 GM/25 IV
--- NOTE | 2019-11-23 14:57 | NUR ---
IV INFUSION STOP TIME [id number]
== END 2019-11-23 14:58 | disposition home or self-care (01) ==
LOC: ATC 12:49
DX: A49.02 Methicillin resistant Staphylococcus aureus infection, unspecified site (principal); E11.622 Type 2 diabetes mellitus with other skin ulcer; E11.621 Type 2 diabetes mellitus with foot ulcer; E11.51 Type 2 diabetes mellitus with diabetic peripheral angiopathy without gangrene; L97.822 Non-pressure chronic ulcer of other part of left lower leg with fat layer exposed; L97.521 Non-pressure chronic ulcer of other part of left foot limited to breakdown of skin; F34.9 Persistent mood [affective] disorder, unspecified; F10.20 Alcohol dependence, uncomplicated; G89.4 Chronic pain syndrome; I25.10 Atherosclerotic heart disease of native coronary artery without angina pectoris; G62.9 Polyneuropathy, unspecified; Z95.818 Presence of other cardiac implants and grafts; Z79.82 Long term (current) use of aspirin; Z79.899 Other long term (current) drug therapy; Z79.4 Long term (current) use of insulin
CPT/HCPCS: 96365; J3370

== ENCOUNTER 2019-11-24 00:12 | Day surgery (SDC) | payer OTHER | END 2019-11-24 15:19 | disposition home or self-care (01) | LOC: ATC 00:12 | DX: E11.621 Type 2 diabetes mellitus with foot ulcer (principal); L97.521 Non-pressure chronic ulcer of other part of left foot limited to breakdown of skin; E11.622 Type 2 diabetes mellitus with other skin ulcer; L97.822 Non-pressure chronic ulcer of other part of left lower leg with fat layer exposed; E11.51 Type 2 diabetes mellitus with diabetic peripheral angiopathy without gangrene; E11.40 Type 2 diabetes mellitus with diabetic neuropathy, unspecified; F34.9 Persistent mood [affective] disorder, unspecified; F10.20 Alcohol dependence, uncomplicated; G89.4 Chronic pain syndrome; I25.10 Atherosclerotic heart disease of native coronary artery without angina pectoris; Z79.2 Long term (current) use of antibiotics; Z79.82 Long term (current) use of aspirin; Z79.4 Long term (current) use of insulin; Z79.899 Other long term (current) drug therapy; Z95.818 Presence of other cardiac implants and grafts | CPT/HCPCS: 96365; J3370 ==

== ENCOUNTER 2019-11-26 00:21 | Day surgery (SDC) | payer OTHER ==
[2019-11-26] MEDS ORDERED: Oxycodone HCl20 M1 PO (14:13)
== END 2019-11-26 15:23 | disposition home or self-care (01) ==
LOC: ATC 00:21
DX: E11.621 Type 2 diabetes mellitus with foot ulcer (principal); L97.521 Non-pressure chronic ulcer of other part of left foot limited to breakdown of skin; E11.622 Type 2 diabetes mellitus with other skin ulcer; L97.822 Non-pressure chronic ulcer of other part of left lower leg with fat layer exposed; E11.51 Type 2 diabetes mellitus with diabetic peripheral angiopathy without gangrene; E11.42 Type 2 diabetes mellitus with diabetic polyneuropathy; F34.9 Persistent mood [affective] disorder, unspecified; F10.20 Alcohol dependence, uncomplicated; G89.4 Chronic pain syndrome; I25.10 Atherosclerotic heart disease of native coronary artery without angina pectoris; Z95.818 Presence of other cardiac implants and grafts; Z79.2 Long term (current) use of antibiotics; Z79.82 Long term (current) use of aspirin; Z79.4 Long term (current) use of insulin; Z79.899 Other long term (current) drug therapy
CPT/HCPCS: 96365; J3370

== ENCOUNTER 2019-11-26 00:32 | Day surgery (SDC) | payer OTHER ==
[2019-11-26] MEDS ORDERED: Oxycodone HCl20 M1 PO (14:13)
== END 2019-11-26 15:23 | disposition home or self-care (01) ==
LOC: WOUND 00:32
DX: E11.622 Type 2 diabetes mellitus with other skin ulcer (principal); L97.822 Non-pressure chronic ulcer of other part of left lower leg with fat layer exposed; E11.42 Type 2 diabetes mellitus with diabetic polyneuropathy; E11.51 Type 2 diabetes mellitus with diabetic peripheral angiopathy without gangrene; I10 Essential (primary) hypertension; I25.10 Atherosclerotic heart disease of native coronary artery without angina pectoris; F17.200 Nicotine dependence, unspecified, uncomplicated; A49.02 Methicillin resistant Staphylococcus aureus infection, unspecified site; S91.302D Unspecified open wound, left foot, subsequent encounter; M86.372 Chronic multifocal osteomyelitis, left ankle and foot; S90.822D Blister (nonthermal), left foot, subsequent encounter; F34.9 Persistent mood [affective] disorder, unspecified; F10.20 Alcohol dependence, uncomplicated; G89.4 Chronic pain syndrome; Z89.422 Acquired absence of other left toe(s); Z79.82 Long term (current) use of aspirin; Z79.899 Other long term (current) drug therapy; Z79.4 Long term (current) use of insulin

== ENCOUNTER 2019-11-27 00:07 | Day surgery (SDC) | payer OTHER ==
[~2019-11-27 00:07] MED LIST changes: +Oxycodone HCl20 M1 PO
--- NOTE | 2019-11-27 15:33 | NUR ---
NEW ORDER: BRIGETTE BLACK JACK DEALER FROM [facility] EXTENDED VANCO FOR 1 MORE WEEK SEE ORDER
== END 2019-11-27 15:27 | disposition home or self-care (01) ==
LOC: ATC 00:07
DX: E11.621 Type 2 diabetes mellitus with foot ulcer (principal); L97.521 Non-pressure chronic ulcer of other part of left foot limited to breakdown of skin; E11.622 Type 2 diabetes mellitus with other skin ulcer; L97.822 Non-pressure chronic ulcer of other part of left lower leg with fat layer exposed; B95.62 Methicillin resistant Staphylococcus aureus infection as the cause of diseases classified elsewhere; E11.51 Type 2 diabetes mellitus with diabetic peripheral angiopathy without gangrene; E11.40 Type 2 diabetes mellitus with diabetic neuropathy, unspecified; G89.4 Chronic pain syndrome; I25.10 Atherosclerotic heart disease of native coronary artery without angina pectoris; F34.9 Persistent mood [affective] disorder, unspecified; F10.20 Alcohol dependence, uncomplicated; Z79.2 Long term (current) use of antibiotics; Z79.82 Long term (current) use of aspirin; Z79.4 Long term (current) use of insulin; Z79.899 Other long term (current) drug therapy; Z95.818 Presence of other cardiac implants and grafts
CPT/HCPCS: 96365; J3370

== ENCOUNTER 2019-11-28 00:28 | Day surgery (SDC) | payer OTHER ==
[2019-11-28 14:58] LABS: Creatinine, Blood 2.48 mg/dL (0.60-1.20); Vancomycin, Trough 22.1 ug/mL (5.0-10.0)
== END 2019-11-28 23:00 | disposition home or self-care (01) ==
LOC: ATC 00:28
PROVIDERS: Nurse Practitioner Family
DX: E11.622 Type 2 diabetes mellitus with other skin ulcer (principal); E11.621 Type 2 diabetes mellitus with foot ulcer; L97.822 Non-pressure chronic ulcer of other part of left lower leg with fat layer exposed; L97.521 Non-pressure chronic ulcer of other part of left foot limited to breakdown of skin; F34.9 Persistent mood [affective] disorder, unspecified; G89.4 Chronic pain syndrome; I25.10 Atherosclerotic heart disease of native coronary artery without angina pectoris; G62.9 Polyneuropathy, unspecified; Z95.818 Presence of other cardiac implants and grafts; E11.51 Type 2 diabetes mellitus with diabetic peripheral angiopathy without gangrene; Z79.82 Long term (current) use of aspirin; Z79.899 Other long term (current) drug therapy; Z79.4 Long term (current) use of insulin
CPT/HCPCS: 80202; 82565

== ENCOUNTER 2019-11-30 00:36 | Day surgery (SDC) | payer OTHER | END 2019-11-30 22:51 | disposition home or self-care (01) | LOC: ATC 00:36 | DX: E11.621 Type 2 diabetes mellitus with foot ulcer (principal); L97.521 Non-pressure chronic ulcer of other part of left foot limited to breakdown of skin; E11.622 Type 2 diabetes mellitus with other skin ulcer; L97.822 Non-pressure chronic ulcer of other part of left lower leg with fat layer exposed; B95.62 Methicillin resistant Staphylococcus aureus infection as the cause of diseases classified elsewhere; E11.51 Type 2 diabetes mellitus with diabetic peripheral angiopathy without gangrene; E11.42 Type 2 diabetes mellitus with diabetic polyneuropathy; F34.9 Persistent mood [affective] disorder, unspecified; F10.20 Alcohol dependence, uncomplicated; G89.4 Chronic pain syndrome; I25.10 Atherosclerotic heart disease of native coronary artery without angina pectoris; Z79.2 Long term (current) use of antibiotics; Z79.82 Long term (current) use of aspirin; Z79.4 Long term (current) use of insulin; Z79.899 Other long term (current) drug therapy; Z95.818 Presence of other cardiac implants and grafts ==

== ENCOUNTER 2019-12-01 00:14 | Day surgery (SDC) | payer OTHER | END 2019-12-01 23:07 | disposition home or self-care (01) | LOC: WOUND 00:14 | DX: E11.621 Type 2 diabetes mellitus with foot ulcer (principal); E11.42 Type 2 diabetes mellitus with diabetic polyneuropathy; L97.529 Non-pressure chronic ulcer of other part of left foot with unspecified severity; L97.822 Non-pressure chronic ulcer of other part of left lower leg with fat layer exposed; E11.51 Type 2 diabetes mellitus with diabetic peripheral angiopathy without gangrene; I10 Essential (primary) hypertension; I25.10 Atherosclerotic heart disease of native coronary artery without angina pectoris; F17.200 Nicotine dependence, unspecified, uncomplicated; Z79.82 Long term (current) use of aspirin; Z79.899 Other long term (current) drug therapy; Z79.4 Long term (current) use of insulin | CPT/HCPCS: 82947 ==

== ENCOUNTER 2019-12-02 00:03 | Day surgery (SDC) | payer OTHER | END 2019-12-02 22:53 | disposition home or self-care (01) | LOC: ATC 00:03 | DX: E11.621 Type 2 diabetes mellitus with foot ulcer (principal); E11.622 Type 2 diabetes mellitus with other skin ulcer; E11.42 Type 2 diabetes mellitus with diabetic polyneuropathy; L97.822 Non-pressure chronic ulcer of other part of left lower leg with fat layer exposed; L97.521 Non-pressure chronic ulcer of other part of left foot limited to breakdown of skin; E11.51 Type 2 diabetes mellitus with diabetic peripheral angiopathy without gangrene; F34.9 Persistent mood [affective] disorder, unspecified; F10.20 Alcohol dependence, uncomplicated; G89.4 Chronic pain syndrome; I25.10 Atherosclerotic heart disease of native coronary artery without angina pectoris; Z95.818 Presence of other cardiac implants and grafts; Z79.82 Long term (current) use of aspirin; Z79.4 Long term (current) use of insulin ==

== ENCOUNTER 2019-12-07 00:52 | Day surgery (SDC) | payer OTHER | END 2019-12-07 22:36 | disposition home or self-care (01) | LOC: ATC 00:52 | DX: E11.621 Type 2 diabetes mellitus with foot ulcer (principal); E11.622 Type 2 diabetes mellitus with other skin ulcer; E11.51 Type 2 diabetes mellitus with diabetic peripheral angiopathy without gangrene; E11.42 Type 2 diabetes mellitus with diabetic polyneuropathy; L97.822 Non-pressure chronic ulcer of other part of left lower leg with fat layer exposed; L97.521 Non-pressure chronic ulcer of other part of left foot limited to breakdown of skin; F34.9 Persistent mood [affective] disorder, unspecified; F10.20 Alcohol dependence, uncomplicated; Z95.818 Presence of other cardiac implants and grafts; Z79.82 Long term (current) use of aspirin; Z79.899 Other long term (current) drug therapy; Z79.4 Long term (current) use of insulin ==

== ENCOUNTER 2019-12-15 00:16 | Day surgery (SDC) | payer OTHER | END 2019-12-15 23:13 | disposition home or self-care (01) | LOC: WOUND 00:16 | DX: E11.622 Type 2 diabetes mellitus with other skin ulcer (principal); L97.822 Non-pressure chronic ulcer of other part of left lower leg with fat layer exposed; E11.42 Type 2 diabetes mellitus with diabetic polyneuropathy; E11.51 Type 2 diabetes mellitus with diabetic peripheral angiopathy without gangrene; I10 Essential (primary) hypertension; I25.10 Atherosclerotic heart disease of native coronary artery without angina pectoris; A49.02 Methicillin resistant Staphylococcus aureus infection, unspecified site; S91.302D Unspecified open wound, left foot, subsequent encounter; M86.372 Chronic multifocal osteomyelitis, left ankle and foot; S90.822D Blister (nonthermal), left foot, subsequent encounter; F34.9 Persistent mood [affective] disorder, unspecified; F10.20 Alcohol dependence, uncomplicated; G89.4 Chronic pain syndrome; Z89.422 Acquired absence of other left toe(s); Z79.82 Long term (current) use of aspirin; Z79.4 Long term (current) use of insulin ==

== ENCOUNTER → 2019-12-19 | Outpatient (CLI) | payer OTHER | END | disposition home or self-care (01) | LOC: LAB SHORT 12:14 → LAB 12:14 | DX: E87.5 Hyperkalemia (principal) | CPT/HCPCS: 84132 ==

== ENCOUNTER → 2019-12-22 | Day surgery (SDC) | payer OTHER | LOC: WOUND 00:16 | DX: E11.622 Type 2 diabetes mellitus with other skin ulcer (principal); E11.51 Type 2 diabetes mellitus with diabetic peripheral angiopathy without gangrene; E11.42 Type 2 diabetes mellitus with diabetic polyneuropathy; L97.822 Non-pressure chronic ulcer of other part of left lower leg with fat layer exposed; A49.02 Methicillin resistant Staphylococcus aureus infection, unspecified site; S91.302D Unspecified open wound, left foot, subsequent encounter; M86.372 Chronic multifocal osteomyelitis, left ankle and foot; S90.822D Blister (nonthermal), left foot, subsequent encounter; F34.9 Persistent mood [affective] disorder, unspecified; F10.20 Alcohol dependence, uncomplicated; G89.4 Chronic pain syndrome; I10 Essential (primary) hypertension; Z89.422 Acquired absence of other left toe(s); Z79.82 Long term (current) use of aspirin; Z79.899 Other long term (current) drug therapy; Z79.4 Long term (current) use of insulin ==

== ENCOUNTER 2019-12-26 20:35 | Inpatient (IN) | payer OTHER ==
[~2019-12-26] VITALS: Ht 188 cm; Wt 96.0 kg
[~2019-12-26 20:35] MED LIST changes: +QUET200 PO; -QUET25 PO
[2019-12-26 21:26] LABS: Source, Urine Clean Catch
[2019-12-26 21:28] LABS: Appearance, Urine Clear (Clear); Blood, Urine 2+ (Neg); Color, Urine Amber (P-Yellow); Glucose Qualitative, Urine Neg (Neg); Ketones, Urine Neg (Neg); Leukocyte Esterase, Urine 1+ (Neg); Nitrite, Urine Neg (Neg); Protein, Urine 2+ (Neg); Specific Gravity, Urine 1.025 (1.003-1.022); Urobilinogen, Urine NORM (Normal)
[2019-12-26 21:30] LABS: Bilirubin, Urine 1+ (Neg)
[2019-12-26 21:32] LABS: BASOPHILS ABSOLUTE AUTO 0.04 K/mm3 (0.00-0.23); BASOPHILS PERCENT AUTO 0 % (0-2); EOSINOPHILS ABSOLUTE AUTO 0.06 K/mm3 (0.00-0.68); EOSINOPHILS PERCENT AUTO 1 % (0-6); Hematocrit 33.3 % (37.0-53.0); Hemoglobin 10.5 g/dL (13.5-17.5); IMMATURE GRAN ABSOLUTE AUTO 0.07 K/mm3 (0.00-0.10); IMMATURE GRAN PERCENT AUTO 1 % (0-1); LYMPHOCYTES ABSOLUTE AUTO 0.47 K/mm3 (0.84-5.20); LYMPHOCYTES PERCENT AUTO 4 % (21-46); MONOCYTES ABSOLUTE AUTO 1.04 K/mm3 (0.16-1.47); MONOCYTES PERCENT AUTO 8 % (4-13); Mean Corpuscular HGB 28.3 pg (26.0-34.0); Mean Corpuscular HGB Conc 31.5 g/dL (31.5-36.5); Mean Corpuscular Volume 90 fL (80-100); Mean Platelet Volume 10.1 fL (9.1-12.4); NEUTROPHILS ABSOLUTE AUTO 10.93 K/mm3 (1.96-9.15); NEUTROPHILS PERCENT AUTO 87 % (41-73); Platelet Count 450 K/mm3 (150-400); RDW Coefficient Variation 14.9 % (11.7-14.2); Red Blood Cell Count 3.71 M/mm3 (4.30-5.90); White Blood Cell Count 12.61 K/mm3 (4.00-11.30)
[2019-12-26 21:34] LABS: Amorphous Mod (0-Heavy); Bacteria Mod /hpf; Red Blood Cells, Urine 0-2 /hpf (0-2); Squamous Epithelial Cells Not Seen /hpf (Few); White Blood Cells, Urine 0-2 /hpf (0-5)
[2019-12-26 21:35] LABS: Granular Casts 0-2 /lpf (0); Hyaline Casts 0-2 /lpf (0-2)
[2019-12-26 21:39] LABS: U Amphetamine Screen Not Detected; U Barbituate Screen Not Detected; U Benzodiazapine Screen Not Detected; U Buprenorphine Screen Not Detected; U Cannabinoids Screen Not Detected; U Cocaine Screen Not Detected; U Methadone Screen Not Detected; U Methamphetamine Screen Not Detected; U Opiates Screen Not Detected; U Oxycodone Screen DETECTED; U Phencyclidine Screen Not Detected; U Propoxyphene Screen Not Detected
[2019-12-26 21:56] LABS: Albumin, Blood 3.3 g/dL (3.4-5.0); Albumin/Globulin Ratio 0.6 (0.8-1.8); Bilirubin, Total 0.8 mg/dL (0.1-1.0); Calcium, Blood 9.4 mg/dL (8.5-10.1); Creatinine, Blood 5.83 mg/dL (0.60-1.20); Globulin, Blood 5.3 g/dL (2.2-4.0); Total Protein, Blood 8.6 g/dL (6.4-8.2)
[2019-12-26 22:40] LABS: Creatine Kinase MB 2.6 ng/mL (0.0-3.6); Creatine Kinase MB Index 1.2 (0.0-4.0)
[2019-12-27 00:49] LABS: Influenza A Negative (NEGATIVE); Influenza B Negative (NEGATIVE)
--- NOTE | 2019-12-27 02:05 | NUR ---
ADMIT NOTE: PT TO ROOM ICU 8 FROM ER AT 2319 AFTER REPORT FROM KAM MACHADO WHO STATED PT WAS DIFFICULT TO ACHIEVE IV'S WHICH DELAYED FLUID BOLUSES. PT ARRIVED WITH THREE FULL LITERS NS OF WHICH TWO WERE INFUSING ALONG WITH A FIRST DOSE OF ZOSYN. WILL CONTINUE THREE LITERS OF NS C/ VANCONYACIN CURRENTLY IFUSING. PT SLIGHTLY CONFUSED AT THAT TIME BUT ORIENTED TO SELF, PLACE, AND YEAR. IGLESIA, LS CLEAR, VSS. PT ARRIVED CONFUSED AND BEHAVES FRUSTRATED AND IMPULSIVE-CRYING FREQUENTLY. PT HAS REFUSED HEPARIN AND FLU INJECTION. PT ASSISTED X2 UP TO COMMODE AFTER DEMANDING THE USE OF THE TOILET AND HAS REPEATEDLY REFUSED URINARY CATHETER. PT WILLING TO USE URINAL. PT STATED WAS FEELING VERY HUNGRY AND STATED IT HAS BEEN DAYS SINCE LAST EATEN ANYTHING. PT SO FAR HAS DRUNK TO CONTAINERS OF MILK ; ONE APPLE JUICE; AND TWO SANDWICHES.
--- NOTE | 2019-12-27 02:58 | NUR ---
PT STATED FEELS BETTER AFER EATING. PT BECAME ANXIOUS AND CONTINUES TO HAVE A HARD TIME FINDING HIS WORDS. PT CURRENTLY ON THE BSC HAVING BM. VSS. WILL ASSIST BACK TO BED AND CONTINUE TO MONITOR.
[2019-12-27 04:08] LABS: BASOPHILS ABSOLUTE AUTO 0.03 K/mm3 (0.00-0.23); BASOPHILS PERCENT AUTO 0 % (0-2); EOSINOPHILS ABSOLUTE AUTO 0.04 K/mm3 (0.00-0.68); EOSINOPHILS PERCENT AUTO 0 % (0-6); Hematocrit 27.9 % (37.0-53.0); Hemoglobin 8.7 g/dL (13.5-17.5); IMMATURE GRAN ABSOLUTE AUTO 0.03 K/mm3 (0.00-0.10); IMMATURE GRAN PERCENT AUTO 0 % (0-1); LYMPHOCYTES ABSOLUTE AUTO 0.75 K/mm3 (0.84-5.20); LYMPHOCYTES PERCENT AUTO 8 % (21-46); MONOCYTES PERCENT AUTO 9 % (4-13); Mean Corpuscular HGB 28.4 pg (26.0-34.0); Mean Corpuscular HGB Conc 31.2 g/dL (31.5-36.5); Mean Corpuscular Volume 91 fL (80-100); Mean Platelet Volume 10.1 fL (9.1-12.4); NEUTROPHILS ABSOLUTE AUTO 7.41 K/mm3 (1.96-9.15); NEUTROPHILS PERCENT AUTO 82 % (41-73); Platelet Count 373 K/mm3 (150-400); RDW Standard Deviation 50.3 fL (35.1-46.3); Red Blood Cell Count 3.06 M/mm3 (4.30-5.90); White Blood Cell Count 9.06 K/mm3 (4.00-11.30)
[2019-12-27 04:24] LABS: Bun/Creatinine Ratio 18.9 (12.0-20.0); Calcium, Blood 8.3 mg/dL (8.5-10.1); Creatinine, Blood 5.14 mg/dL (0.60-1.20); Potassium, Blood 5.8 mmol/L (3.5-5.5)
--- NOTE | 2019-12-27 06:41 | NUR ---
PT CONSENTED TO PHOTOS OF WOUNDS. WOUNDS PICTURED, CLEANSED AND REDRESSED. SEE PHOTOS.
--- NOTE | 2019-12-27 15:08 | NUR ---
CARE ASSUMED ASSESSMENT COMPLETED, PT ALERT, ORIENTED TO SELF AND PLACE, REFUSES TO ANSWER OTHER ORIENTING QUESTIONS. PT'S AFFECT IS BIZZARE, IS VERY THANKFUL AT TIMES AND VERY IRRITABLE AT TIMES. PT ASSISTED TO BSC, DOES NOT FOLLOW DIRECTION WELL BUT GAIT IS STEADY WITH SBA. PT BACK TO BED, TOOK AM PILLS, VSS. PT'S MOOD IS LABILE, PT CRYING, HAPPY, FLAT, IRRITABLE INTERMITTENTLY. DID NOT EAT BREAKFAST, IS DRINKING FLUIDS WITHOUT DIFFICULTY. PT BECAME INCREASINGLY CONFUSED WITH MOOD SWINGS, DR. IVERSON NOTIFIED, CT ORDERED, PT REFUSED CT. PT ALSO REFUSING HEPARIN, WILL NOT STATE REASONING. DR. CAMPOS IN TO SEE PATIENT, PT HAS HISTORY OF BIPOLAR PER DR. CAMPOS'S REPORT, SEROQUEL STARTED. DR. TORRES NOTIFIED OF NEPHROLOGY CONSULT, NEW ORDERS. PT CALMED AND WENT TO SLEEP AFTER SEROQUEL, CONTINUES TO REST AT THIS TIME, VSS. LLE WITH PARTIAL FOOT AMPUTATION, EXTREMETY IS RED AND MILDLY WARM TO TOUCH, 1-2+ EDEMA PRESENT, PPP. DRESSING TO POSTERIOR FOOT AND ANTERIOR WOODWARD INTACT, SMALL AMOUNT OF SS DRAINAGE NOTED, NO FOUL ODOR PRESENT. ABX ADMINISTERED PER ORDERS, RENAL DOSING ON MEDS.
--- NOTE | 2019-12-27 16:52 | NUR ---
UPDATE DR. TORRES IN TO ASSESS PATIENT, BLADDER SCAN SHOWS 117ML IN BLADDER, NO NEW ORDERS AT THIS TIME. PT WOKE UP, REMAINS EMOTIONALLY LABILE, THEN WENT BACK TO SLEEP SOON LEFT THE ROOM. VS REMAIN STABLE.
--- NOTE | 2019-12-27 17:28 | NUR ---
PT ARRIVES NOW FROM ICU RM 8. DEE RN STS THAT PT HAS HAD NEAR FALL TODAY R/T ATTEMPTING TO USE URINAL. PT IMMEDIATELY DEMANDS TO USE URINAL WHICH IS PROVIDED TO HIM, PT REFUSES, PT STS THAT HE IS GETTING UP, SWATTING ARMS AT THIS RN WHILE TRYING TO ASSIST HIM TO USE URINAL. PT SCREAMS AT THIS RN AND FLAILS ABOUT, THEN STS "YOU MAY WELL TAKE IT AWAY" URINAL IS REMOVED AND PT BEGINS ACCUSING THIS RN OF "TRYING TO TAKE MY LEG NOW INSTEAD OF 2 WEEKS" NO EDUCATION OR REDIRECTION IS SUCCESSFUL. PT THEN BEGINS CRYING WITHOUT TEAR PRODUCTION STATING THAT HE IS LOSING HIS LEG AND STS THAT IT IS THIS RN'S FAULT "BECAUSE YOU THINK THIS IS FUNNY". BED IS ARMED.
--- NOTE | 2019-12-27 17:58 | NUR ---
1725: TRANSFER PT TO PCU 3, REPORT TO JEANNETTE SIMMONS. VSS, PT COOPERATIVE WITH CARE AT THIS TIME. NS AND ZOSYN INFUSIONS RESUMED.
--- NOTE | 2019-12-27 18:10 | NUR ---
YANNA RN TO ROOM TO ASSIST PT TO URINAL PT IS REFUSING TO ALLOW THIS RN TO ASSIST HIM. PT SITS AT BESIDE IS UNSTEADY BUT MANAGES TO SIT TO USE URINAL HE SOBS REPEATING SELF. WHEN YANNA STEPS OUT OF ROOM PT RESUMES SCREAMING AT THIS RN STS "I'M REPORTING THIS" PT ASKED WHAT HE IS REPORTING PT STS "YOU MADE ME STARE AT MY FOOD FRO OVER AN HOUR" PT REMINDED THAT HE HAS BEEN IN UNIT LESS THAN 20 MINUTES AND THAT HIS TRAY HAD BEEN OFFERED TO HIM AND HE REFUSED HE WAS ASKED NOT TO GET OUT OF BED. THIS RN HAS CUT HIS DINNER TRAY UP FOR HIM, PUTS IT IN FRONT OF HIM PT SHOVES HIS SIDE TABLE AWAY WITH FORCE AND STS "YOU TRIED TO HIT ME WITH IT" ANETTE PCT IS AT BEDSIDE NOTES THAT PT WAS NOT BEING STRUCK WITH FOOD TRAY. PT DEMANDS THAT TRAY BE REMOVED FROM ROOM STS THAT HE IS NOT EATING IT, WHEN TRAY IS REMOVED ACCUSES THIS RN AGAIN OF "STARVING HIM" BUT AGAIN REFUSED TO ALLOW TRAY LEFT IN ROOM
[2019-12-27 21:23] LABS: Vancomycin, Trough 16.4 ug/mL (5.0-10.0)
[2019-12-28 04:47] LABS: BASOPHILS ABSOLUTE AUTO 0.03 K/mm3 (0.00-0.23); BASOPHILS PERCENT AUTO 1 % (0-2); EOSINOPHILS ABSOLUTE AUTO 0.29 K/mm3 (0.00-0.68); EOSINOPHILS PERCENT AUTO 8 % (0-6); Hematocrit 27.5 % (37.0-53.0); Hemoglobin 8.5 g/dL (13.5-17.5); IMMATURE GRAN ABSOLUTE AUTO 0.01 K/mm3 (0.00-0.10); IMMATURE GRAN PERCENT AUTO 0 % (0-1); LYMPHOCYTES ABSOLUTE AUTO 0.58 K/mm3 (0.84-5.20); LYMPHOCYTES PERCENT AUTO 15 % (21-46); MONOCYTES ABSOLUTE AUTO 0.56 K/mm3 (0.16-1.47); MONOCYTES PERCENT AUTO 14 % (4-13); Mean Corpuscular HGB 28.2 pg (26.0-34.0); Mean Corpuscular HGB Conc 30.9 g/dL (31.5-36.5); Mean Corpuscular Volume 91 fL (80-100); Mean Platelet Volume 9.8 fL (9.1-12.4); NEUTROPHILS ABSOLUTE AUTO 2.42 K/mm3 (1.96-9.15); NEUTROPHILS PERCENT AUTO 62 % (41-73); Platelet Count 299 K/mm3 (150-400); RDW Coefficient Variation 14.9 % (11.7-14.2); RDW Standard Deviation 50.7 fL (35.1-46.3); Red Blood Cell Count 3.01 M/mm3 (4.30-5.90); White Blood Cell Count 3.89 K/mm3 (4.00-11.30)
--- NOTE | 2019-12-28 04:51 | NUR ---
SHIFT SUMMARY: PATIENT AGGITATED INTERMITTENTLY BUT EASILY REDIRECTABLE, AGGITATION IS THE WORST WHEN HE IS NOT ALLOWED TO STAND OR SIT AT SIDE OF BED TO USE THE URINAL. PATIENT EDUCATED ON FALL RISK AND MULTIPLE TIMES WHEN PATIENT NEARLY FELL EVEN FROM THE SITTING POSITION. PATIENT INSISTS THAT THESE EPISODES DID NOT HAPPEN AND ALL OF THE STAFF ARE LYING. MYSELF AND CHARGE NURSE STOOD THE PATIENT AT THE BEDSIDE TO USE THE URINAL AND PATIENT IS A MAXIMUM ASSIST HE IS VERY UNSTABLE, IMPULSIVE AND POOR AT FOLLOWING COMMANDS. PATIENT VSS, CALL LIGHT WITHIN REACH AND BED LOW AND LOCKED WITH EXIT ALARM ON
[2019-12-28 05:09] LABS: Albumin/Globulin Ratio 0.6 (0.8-1.8); Globulin, Blood 4.2 g/dL (2.2-4.0)
[2019-12-28 05:11] LABS: Albumin, Blood 2.4 g/dL (3.4-5.0); Bilirubin, Total 0.3 mg/dL (0.1-1.0); Bun/Creatinine Ratio 20.1 (12.0-20.0); Calcium, Blood 8.6 mg/dL (8.5-10.1); Creatinine, Blood 3.33 mg/dL (0.60-1.20); Phosphorus, Blood 3.7 mg/dL (2.5-4.9); Potassium, Blood 5.7 mmol/L (3.5-5.5); Total Protein, Blood 6.6 g/dL (6.4-8.2)
--- NOTE | 2019-12-28 06:39 | NUR ---
APPROX 0600 PATIENT BEGAN TO ACT VERY ERRATIC AND AGGITATED, HIS MOODS VERY LABILE. HE ALTERNATED BETWEEN YELLING AT STAFF, REFUSING CERTAIN MEDICATIONS, CRYING AND APOLIGISING AND THEN MAKING FISTS AT STAFF AND USING INAPPROPRIATE LANGUAGE AGAIN. PATIENT IS ON CAMERA D/T EXTREMELY HIGH FALL RISK. PATIENT GROIN FOLDS VERY IRRITATED AND AN OPEN AREA IS BLEEDING, PATIENT WAS VERY RESISTANT TO CLEANING THE SITES AND WOULD ONLY ALLOW SOME DRY 4X4'S TO BE PLACED BETWEEN THE FOLDS.
--- NOTE | 2019-12-28 10:00 | NUR ---
UPDATE PT BECOMING AGITATED AND UNABLE TO REDIRECT. PT LABILE IN AFFECT GOING FROM LAUGHING AND SMILING TO CRYING, TO AGITATED AND YELLING AT STAFF. PT REQUESTING TO GO AMA. PT EDUCATED ON RISKS OF LEAVING AND BENEFITS OF STAYING. DR. CAMPOS NOTIFIED. DR. CAMPOS IN THE ROOM TO ASSESS PT. NEW ORDERS FOR 2MD HOLD. LEGAL DOCUMENT HAS BEEN FAXED TO ER AND SECOND COPY IN THE CHART. THIS RN AND STAFFING CONSULTANT ATTEMPT TO GIVE PT ORAL SEROQUEL AND PT REFUSED. ORDERS FROM DR. CAMPOS TO GIVE IM ZYPREXA. THIS RN ALONG WITH STAFFING CONSULTANT AND SECURITY AND NURSING CONE PICKER IN ROOM TO GET PT TO THE BED SAFELY AND ADMINISTER ZYPREXA. PT BEING MONITORED BY CAMERA FOR SAFETY. WILL CONTINUE TO MONITOR CLOSELY.
--- NOTE | 2019-12-28 11:01 | NUR ---
UPDATE PT MORE APPROPRIATE WITH STAFF AT THIS TIME. PT ALLOWS THIS RN TO ADMINISTER IV ANTIBIOTICS. PT COOPERATIVE FOR LAB TO DRAW BLOOD CULTURES. BED ALARM IS ON. PT RESTING AT THIS TIME. WILL CONTINUE TO MONITOR CLOSELY.
--- NOTE | 2019-12-28 18:16 | NUR ---
SHIFT SUMMARY: PT EMOTIONALLY LABILE FOR THE SHIFT, PT CURRENTLY HAS 2 MD HOLD PT ATTEMPTED TO GO AMA AND IS MENTALLY INCAPABLE OF TAKING CARE OF HIMSELF. PT GIVEN IM ZYPREXA AND PAIN MEDS AND PT HAD FINALLY CALM DOWN. PT THEN WAS PLEASANT AND COOPERATIVE TO STAFF TIL THE END OF THE SHIFT. PT HAS POSITIVE MRSA CULTURE ON HIS WOUNDS PT ON CONTACT PRECAUTION. FRIEND/NEIGHBOR WAS IN TO VISIT. PT STAYED IN BED FOR THE REST OF THE SHIFT ABLE TO USE CALL LIGHTS FOR HELP, FOLLOWS DIRECTION, BUT STILL HAS EPISODES OF MANIC/DEPRESSIVE SYMPTOMS. PT ON IV FLUIDS AND ANTIBIOTICS. HRR SINUS ON 90'S DENIES CHEST PAIN, SATS KEPT ABOVE 90% ON ROOMAIR. PT C/O HAND AND LEG PAIN PAIN MEDS GIVEN AND EFFECTIVE. TO GIVE REPORT TO ONCOMING SHIFT. WILL MONITOR
[2019-12-28 22:25] LABS: Vancomycin, Random 19.6 ug/mL
--- NOTE | 2019-12-29 00:05 | NUR ---
UPDATE PATIENT PLEASENT AND TALKITIVE TONIGHT, HOWEVER PATIENT VERY TEARFUL WELL. PATIENT EXPRESSING CONCERN ABOUT INABILITY TO KEEP HIS APPOINTMENT THAT IS SCHEDULED FOR LATER TODAY FOR HIS GROIN WOUND. PATIENT PROVIDED WITH APPROPRIATE SUPPORT. PATIENT ALSO CONTINUES TO REFUSE TO WEAR HIS TELE MONITOR STATING, "MY HEART IS NOT WHY I'M HERE, ITS FINE SO I DON'T NEED TO WEAR IT." NURSE PRACTIONER DIEGO VEGA AWARE THAT PATIENT IS REFUSING HIS TELE MONITOR EVEN AFTER EDUCATION PROVIDED.
[2019-12-29 04:44] LABS: BASOPHILS ABSOLUTE AUTO 0.03 K/mm3 (0.00-0.23); BASOPHILS PERCENT AUTO 1 % (0-2); EOSINOPHILS ABSOLUTE AUTO 0.38 K/mm3 (0.00-0.68); EOSINOPHILS PERCENT AUTO 9 % (0-6); Hemoglobin 8.8 g/dL (13.5-17.5); IMMATURE GRAN ABSOLUTE AUTO 0.01 K/mm3 (0.00-0.10); IMMATURE GRAN PERCENT AUTO 0 % (0-1); LYMPHOCYTES ABSOLUTE AUTO 0.94 K/mm3 (0.84-5.20); LYMPHOCYTES PERCENT AUTO 21 % (21-46); MONOCYTES ABSOLUTE AUTO 0.94 K/mm3 (0.16-1.47); MONOCYTES PERCENT AUTO 21 % (4-13); Mean Corpuscular HGB 27.6 pg (26.0-34.0); Mean Corpuscular HGB Conc 30.3 g/dL (31.5-36.5); Mean Corpuscular Volume 91 fL (80-100); NEUTROPHILS ABSOLUTE AUTO 2.19 K/mm3 (1.96-9.15); NEUTROPHILS PERCENT AUTO 49 % (41-73); Platelet Count 315 K/mm3 (150-400); RDW Coefficient Variation 14.6 % (11.7-14.2); RDW Standard Deviation 49.1 fL (35.1-46.3); Red Blood Cell Count 3.19 M/mm3 (4.30-5.90); White Blood Cell Count 4.49 K/mm3 (4.00-11.30)
[2019-12-29 05:03] LABS: Alanine Aminotransfer (ALT/SGP 25 U/L (12-78); Albumin, Blood 2.5 g/dL (3.4-5.0); Albumin/Globulin Ratio 0.6 (0.8-1.8); Alk Phos 57 U/L (50-136); Anion Gap 5 mmol/L (6-16); Aspartate Aminotrans (AST/SGOT 20 U/L (12-37); Bilirubin, Total 0.4 mg/dL (0.1-1.0); Blood Urea Nitrogen 44 mg/dL (8-24); Bun/Creatinine Ratio 18.1 (12.0-20.0); CO2, Blood 22 mmol/L (21-32); Calcium, Blood 8.8 mg/dL (8.5-10.1); Chloride, Blood 114 mmol/L (98-108); Creatinine, Blood 2.43 mg/dL (0.60-1.20); Globulin, Blood 4.5 g/dL (2.2-4.0); Glomerular Filtration Rate 29 (60-); Glucose, Blood 218 mg/dL (70-99); Magnesium, Blood 1.8 mg/dL (1.6-2.4); Phosphorus, Blood 2.8 mg/dL (2.5-4.9); Potassium, Blood 5.2 mmol/L (3.5-5.5); Sodium, Blood 141 mmol/L (136-145)
--- NOTE | 2019-12-29 07:53 | NUR ---
SHIFT SUMMARY PATIENT PLEASENT AND MOSTLY COOPERATIVE THROUGHOUT THE NIGHT. PATIENT DID CONTINUE TO REFUSE THE TELE. PATIENT ALLOWED WOUND CARE TO BE DONE. PATIENT'S MOOD CONTINEUS TO BE LABILE. PATIENT APPEARS TO BE ABLE TO MOVE HEMSELF ABOUT IN BED ON HIS OWN. ABX GIVEN PER ORDERS. BEDSIDE REPORT GIVEN TO ONCOMING RN.
--- NOTE | 2019-12-29 19:29 | NUR ---
SHIFT SUMMARY: PT ALERT WITH OCCASIONAL EPISODES OF BEING EMOTIONALLY LABILE. PRN SEROQUEL 50 MG GIVEN THIS AM AND SEEMS EFFECTIVE THROUGHOUT THE SHIFT, PT WAS SEEN BY DR. NG TODAY LEG WOUNDS WAS REDRESSED PT WAS ALSO CONSULTED TO DR. SHANKS WHO ORDERED CT ABD D/T OPEN WOUNDS ON THE LEFT GROIN DIME SIZED. CT WAS DONE PROVIDER TO REVIEW RESULT. PT CONTINUES ON IV VANCO AND ZOSYN, PT STILL ON 2 MD HOLD, NO ATTEMPTS OF LEAVING AMA FOR THE SHIFT. COOPERATIVE WITH CARES TODAY, CALLS APPROPRIATELY. VITALS REMAINED STABLE, LAST BP SYSTOLIC WAS ELEVATED AT 170'S PT REFUSED TO GET BP RECHECKED NIGHT NURSE MADE AWARE. DENIES CHEST PAIN FOR THE SHIFT. CURRENTLY IN BED CALL LIGHTS WITHIN REACH. WILL MONITOR.
--- NOTE | 2019-12-30 03:30 | NUR ---
ASSUMED CARE AT 1900. REVIEWED 2 MD HOLD WITH DAY RN. VIDEO CAMERA . SOME AGGITATION AND DIFUSED EASILY. REVIEWED MEDS AND ACCEPTS ALL MEDS . REFUSED CBG AND LOVENOX. JUICES TAKEN AND UNABLE TO COVER BS. PAIN MED AND X1 CATAPRES NEEDED. OFFERED TO TAKE OOB IN HALLS W/ W/C AND 2 PERSON ASSIST, THEN FELL OFF TO SLEEP/ REPORTED OCC SHARP PAIN THRU LT LEG. QUICK GLANCE OF LT GROIN WOUND/ OPENING VERY SMALL WHOLE. WOULD NOT ALLOW STAFF TO PALPATE OR CLEANSE AREA. SOME REDDNESS NOTED ACROSS GROIN/ COOPERATIVE AND THANKFUL ABOUT EVERYTHING POST SEREQUEL. USED WALKER FOR BRP W/ STAND BY ASSIST. FAIRLY STEADY GAIT. STOOL X 2 . NO TELE.SLEEPING SOUNDLY NOW
[2019-12-30 05:07] LABS: BASOPHILS ABSOLUTE AUTO 0.05 K/mm3 (0.00-0.23); BASOPHILS PERCENT AUTO 1 % (0-2); EOSINOPHILS ABSOLUTE AUTO 0.61 K/mm3 (0.00-0.68); EOSINOPHILS PERCENT AUTO 10 % (0-6); Hematocrit 30.9 % (37.0-53.0); Hemoglobin 9.4 g/dL (13.5-17.5); IMMATURE GRAN ABSOLUTE AUTO 0.03 K/mm3 (0.00-0.10); IMMATURE GRAN PERCENT AUTO 1 % (0-1); LYMPHOCYTES PERCENT AUTO 22 % (21-46); MONOCYTES ABSOLUTE AUTO 0.69 K/mm3 (0.16-1.47); MONOCYTES PERCENT AUTO 11 % (4-13); Mean Corpuscular HGB 27.7 pg (26.0-34.0); Mean Corpuscular HGB Conc 30.4 g/dL (31.5-36.5); Mean Corpuscular Volume 91 fL (80-100); Mean Platelet Volume 9.7 fL (9.1-12.4); NEUTROPHILS ABSOLUTE AUTO 3.37 K/mm3 (1.96-9.15); NEUTROPHILS PERCENT AUTO 56 % (41-73); Platelet Count 299 K/mm3 (150-400); RDW Coefficient Variation 14.2 % (11.7-14.2); RDW Standard Deviation 47.9 fL (35.1-46.3); Red Blood Cell Count 3.39 M/mm3 (4.30-5.90); White Blood Cell Count 6.05 K/mm3 (4.00-11.30)
[2019-12-30 05:29] LABS: Alanine Aminotransfer (ALT/SGP 26 U/L (12-78); Albumin, Blood 2.6 g/dL (3.4-5.0); Albumin/Globulin Ratio 0.6 (0.8-1.8); Alk Phos 55 U/L (50-136); Anion Gap 5 mmol/L (6-16); Aspartate Aminotrans (AST/SGOT 16 U/L (12-37); Bilirubin, Total 0.3 mg/dL (0.1-1.0); Blood Urea Nitrogen 31 mg/dL (8-24); Bun/Creatinine Ratio 15.9 (12.0-20.0); CO2, Blood 23 mmol/L (21-32); Chloride, Blood 115 mmol/L (98-108); Creatinine, Blood 1.95 mg/dL (0.60-1.20); Globulin, Blood 4.4 g/dL (2.2-4.0); Glomerular Filtration Rate 37 (60-); Glucose, Blood 212 mg/dL (70-99); Magnesium, Blood 1.7 mg/dL (1.6-2.4); Phosphorus, Blood 2.2 mg/dL (2.5-4.9); Potassium, Blood 4.8 mmol/L (3.5-5.5); Sodium, Blood 143 mmol/L (136-145); Vancomycin, Random 19.6 ug/mL
--- NOTE | 2019-12-30 06:00 | NUR ---
NO ACUTE CHANGES . LT PAULINO WRAPPED DSG REMAINS SAME. WARM/ CIRC CHECK WNL. + DP PULSE. CALM / COOPERATIVE. SOME AGGITATION W/ BLOOD DRAW AND DELAYED ON BP CHECK. SNACKS TAKEN . LAB BS SINCE REFUSED LAST NOC.NO COVERAGE.
--- NOTE | 2019-12-30 19:36 | NUR ---
PT PLEASANT TODAY, COOPERATIVE WITH CARES ABLE TO MAKE NEEDS KNOWN. PT CONTINUES ON IV ABO FOR MRSA INFECTION. PT WITH EPISODES OF AGITATION REFUSED TO TAKE SEROQUEL PRN. BP SYSTOLIC ON THE 160'S-170'S DR. JI ORDERED LISINOPRIL FOR HTN. PT STAYED IN BED MOST OF THE SHIFT. CALL LIGHTS WITHIN REACH. REPORT GIVEN TO ONCOMING SHIFT.
--- NOTE | 2019-12-31 02:13 | NUR ---
HOSPITALIST NOTIFIED OF INCREASED BP. 10 MG IV Q4 PRN HYDRALAZINE WAS ORDERED AND GIVEN. PT HAS ALSO REFUSED HIS PM DOSE OF SEROQUEL. HE WAS EDUCATED ABOUT THE MEDICATION AND THE PURPOSE OF IT BEING ORDERED, HE CONTINUED TO REFUSE STATING HE WANTS TO SPEAK WITH HIS "PRIMARY DOCTOR AFTER D/C". HE IS ANXIOUS AND TALKING FREQUENTLY FOR LONG PERIODS, FORGETTING TO USE HIS CALL LIGHT AND CURSING THE BED ALARM BUT IN GENERAL BEING POLITE AND ALLOWING OTHER CARE. BED ALARM REMAINS ON FOR SAFETY, CALL LIGHT IN REACH, WCTM AT THIS TIME.
[2019-12-31 04:36] LABS: BASOPHILS ABSOLUTE AUTO 0.05 K/mm3 (0.00-0.23); BASOPHILS PERCENT AUTO 1 % (0-2); EOSINOPHILS ABSOLUTE AUTO 0.71 K/mm3 (0.00-0.68); EOSINOPHILS PERCENT AUTO 10 % (0-6); Hematocrit 28.8 % (37.0-53.0); Hemoglobin 9.2 g/dL (13.5-17.5); IMMATURE GRAN ABSOLUTE AUTO 0.09 K/mm3 (0.00-0.10); IMMATURE GRAN PERCENT AUTO 1 % (0-1); LYMPHOCYTES ABSOLUTE AUTO 1.33 K/mm3 (0.84-5.20); LYMPHOCYTES PERCENT AUTO 18 % (21-46); MONOCYTES ABSOLUTE AUTO 0.59 K/mm3 (0.16-1.47); MONOCYTES PERCENT AUTO 8 % (4-13); Mean Corpuscular HGB 28.3 pg (26.0-34.0); Mean Corpuscular HGB Conc 31.9 g/dL (31.5-36.5); Mean Corpuscular Volume 89 fL (80-100); NEUTROPHILS ABSOLUTE AUTO 4.61 K/mm3 (1.96-9.15); NEUTROPHILS PERCENT AUTO 63 % (41-73); Platelet Count 295 K/mm3 (150-400); RDW Coefficient Variation 13.8 % (11.7-14.2); RDW Standard Deviation 44.9 fL (35.1-46.3); Red Blood Cell Count 3.25 M/mm3 (4.30-5.90); White Blood Cell Count 7.38 K/mm3 (4.00-11.30)
[2019-12-31 04:55] LABS: Albumin, Blood 2.6 g/dL (3.4-5.0); Anion Gap 5 mmol/L (6-16); Blood Urea Nitrogen 25 mg/dL (8-24); CO2, Blood 23 mmol/L (21-32); Calcium, Blood 8.7 mg/dL (8.5-10.1); Chloride, Blood 112 mmol/L (98-108); Creatinine, Blood 1.56 mg/dL (0.60-1.20); Glomerular Filtration Rate 48 (60-); Glucose, Blood 259 mg/dL (70-99); Magnesium, Blood 1.6 mg/dL (1.6-2.4); Phosphorus, Blood 1.9 mg/dL (2.5-4.9); Potassium, Blood 4.8 mmol/L (3.5-5.5); Sodium, Blood 140 mmol/L (136-145); Vancomycin, Random 17.9 ug/mL
--- NOTE | 2019-12-31 06:30 | NUR ---
SUMMARY PT CONTINUED TO BE UP AND DOWN THROUGH THE NIGHT, FORGETTING TO USE HIS CALL LIGHT AND SETTING OFF THE BED ALARM. HE IS VOIDING USING THE URINAL WITH APPROX 150-200 ML EACH TIME. PT WAS MEDICATED FOR PAIN PER EMAR. HE WAS ENC TO ELEVATE HIS LEG & PLACE AN ICE PACK, HE REFUSED. BP REMAINS ELEVATED. NO OTHER ACUTE CHANGES NOTED. BED ALARM IS ON FOR SAFETY, CALL LIGHT IN REACH. WILL REPORT TO DAY RN.
[2019-12-31] MEDS ORDERED: Nicoderm Cq1 EACH TOP (10:26)
[2019-12-31] MEDS ORDERED: LINE600 PO (10:27)
--- NOTE | 2019-12-31 12:56 | NUR ---
PT D/C BY TENA MACHADO
== END 2019-12-31 11:35 | disposition home or self-care (01) | DRG 871 ==
LOC: ER 20:35 → ICUE 22:42 → ICUW 22:42 → PCU 22:42 → ICUE 23:31 → PCU 12-27 17:17
PROVIDERS: Emergency Medicine; Family Medicine; Internal Medicine Nephrology; ADMIT Hospitalist
DX: A41.9 Sepsis, unspecified organism (principal); G93.41 Metabolic encephalopathy; L03.116 Cellulitis of left lower limb; N17.9 Acute kidney failure, unspecified; F31.81 Bipolar II disorder; M86.672 Other chronic osteomyelitis, left ankle and foot; E87.0 Hyperosmolality and hypernatremia; N25.81 Secondary hyperparathyroidism of renal origin; E11.51 Type 2 diabetes mellitus with diabetic peripheral angiopathy without gangrene; E11.40 Type 2 diabetes mellitus with diabetic neuropathy, unspecified; E11.22 Type 2 diabetes mellitus with diabetic chronic kidney disease; I12.9 Hypertensive chronic kidney disease with stage 1 through stage 4 chronic kidney disease, or unspecified chronic kidney disease; N18.3 Chronic kidney disease, stage 3 (moderate); E78.5 Hyperlipidemia, unspecified; E03.9 Hypothyroidism, unspecified; N40.0 Benign prostatic hyperplasia without lower urinary tract symptoms; F17.210 Nicotine dependence, cigarettes, uncomplicated; E86.9 Volume depletion, unspecified; S31.104A Unspecified open wound of abdominal wall, left lower quadrant without penetration into peritoneal cavity, initial encounter; S31.103A Unspecified open wound of abdominal wall, right lower quadrant without penetration into peritoneal cavity, initial encounter; E11.69 Type 2 diabetes mellitus with other specified complication; E87.5 Hyperkalemia; E83.39 Other disorders of phosphorus metabolism; E88.09 Other disorders of plasma-protein metabolism, not elsewhere classified; D63.1 Anemia in chronic kidney disease; Z95.820 Peripheral vascular angioplasty status with implants and grafts; Z89.432 Acquired absence of left foot; Z79.82 Long term (current) use of aspirin; Z79.4 Long term (current) use of insulin; Z79.891 Long term (current) use of opiate analgesic; Z79.899 Other long term (current) drug therapy
CPT/HCPCS: 36415; 71045; 74176; 76770; 80048; 80053; 80069; 80202; 81001; 82550; 82553; 82947; 83605; 83735; 84100; 85025; 87040; 87081; 87086; 87804; 93005; 93010; 96365; 96375; 97110; 97116; 97162; 99285-25; A9270; A9270-GY; C1751; J0360; J0881; J1644; J1815; J2543; J3370; J7030; J7050; J7060; J7120

== ENCOUNTER 2020-01-05 10:30 | Day surgery (SDC) | payer OTHER ==
[~2020-01-05 10:30] MED LIST changes: +LINE600 PO; +Nicoderm Cq1 EACH TOP
--- NOTE | 2020-01-05 11:57 | NUR ---
Patient gave consent for care and to view chart.
== END 2020-01-07 22:51 | disposition home or self-care (01) ==
LOC: WOUND 10:30
DX: E11.621 Type 2 diabetes mellitus with foot ulcer (principal); L97.822 Non-pressure chronic ulcer of other part of left lower leg with fat layer exposed; A49.02 Methicillin resistant Staphylococcus aureus infection, unspecified site; S91.302D Unspecified open wound, left foot, subsequent encounter; M86.372 Chronic multifocal osteomyelitis, left ankle and foot; S90.822D Blister (nonthermal), left foot, subsequent encounter; I73.9 Peripheral vascular disease, unspecified; F34.9 Persistent mood [affective] disorder, unspecified; F10.20 Alcohol dependence, uncomplicated; G89.4 Chronic pain syndrome; Z89.422 Acquired absence of other left toe(s)

== ENCOUNTER 2020-01-07 08:30 | Observation (INO) | payer OTHER ==
[~2020-01-07] VITALS: Ht 182.9 cm; Wt 100.5 kg
[2020-01-15 14:11] LABS: BASOPHILS ABSOLUTE AUTO 0.09 K/mm3 (0.00-0.23); BASOPHILS PERCENT AUTO 1 % (0-2); EOSINOPHILS ABSOLUTE AUTO 0.33 K/mm3 (0.00-0.68); EOSINOPHILS PERCENT AUTO 3 % (0-6); Hematocrit 29.7 % (37.0-53.0); Hemoglobin 9.2 g/dL (13.5-17.5); IMMATURE GRAN ABSOLUTE AUTO 0.04 K/mm3 (0.00-0.10); IMMATURE GRAN PERCENT AUTO 0 % (0-1); LYMPHOCYTES PERCENT AUTO 10 % (21-46); MONOCYTES ABSOLUTE AUTO 0.63 K/mm3 (0.16-1.47); MONOCYTES PERCENT AUTO 6 % (4-13); Mean Corpuscular HGB 27.5 pg (26.0-34.0); Mean Corpuscular Volume 89 fL (80-100); Mean Platelet Volume 9.2 fL (9.1-12.4); NEUTROPHILS ABSOLUTE AUTO 8.36 K/mm3 (1.96-9.15); NEUTROPHILS PERCENT AUTO 79 % (41-73); Platelet Count 418 K/mm3 (150-400); RDW Coefficient Variation 14.7 % (11.7-14.2); RDW Standard Deviation 47.8 fL (35.1-46.3); Red Blood Cell Count 3.34 M/mm3 (4.30-5.90); White Blood Cell Count 10.55 K/mm3 (4.00-11.30)
[2020-01-15 14:32] LABS: Bun/Creatinine Ratio 22.3 (12.0-20.0); Calcium, Blood 9.6 mg/dL (8.5-10.1); Creatinine, Blood 1.48 mg/dL (0.60-1.20); Potassium, Blood 5.2 mmol/L (3.5-5.5)
[2020-01-15] MEDS ORDERED: ASPIR 8181 M1 PO (15:59)
--- NOTE | 2020-01-15 18:15 | NUR ---
ADMIT NOTE- PT ADMITTED AROUND 1700. MEDS RECONCILED WITH PRINTED LIST (IN PT CHART) BY DAY VASCULAR RADIOLOGIST JOSELITO. PT ALERT AND ORIENTED. JUST AFTER ARRIVAL PT TOOK HIS W/C AND WALKED OUT TO SMOKE. PT REFUSED DVT PROF (HELADIO). PT TO GO FOR LLE AMPUTATION TOMORROW, WAS SUPPOSED TO TODAY BUT GOT DELAYED UNTIL TOMORROW. PT HOME PAIN MEDS AND INSULIN ORDERED HOWEVER NO OTHER HOME MEDS HAVE BEEN ORDERED. PT REFUSED GOWN AND IS WEARING HIS HOME CLOTHES AT THIS TIME. PT WAS C/O 06/14 PAIN IN THE EXTREMITY MEDICATED PER EMAR PT C/O NPO ALL DAY CURRENTLY EATING DINNER. PT STATED HE WILL BE WILLING TO GET INTO A GOWN AFTER HE IS DONE EATING. PT REQUESTED A "REGULAR WHEELCHAIR" NOT THE BLUE TRANSPORT WHEELCHAIR HE CAN SIT AND PROPELL HIMSELF RATHER THAN WALK AND PUSH THE CHAIR. NO CHAIR IN UNIT AT THIS TIME WILL ATTEMPT TO LOCATE ONE PRIOR TO SHIFT CHANGE.
--- NOTE | 2020-01-15 18:33 | NUR ---
SHIFT SUMMARY- PT HAS NO ORDER FOR CODE STATUS. SPOKE TO PT ABOUT HIS CODE STATUS AND HE STATED HE WOULD LIKE TO REMAIN A FULL CODE AT THIS TIME.
--- NOTE | 2020-01-15 22:00 | NUR ---
DR. DELEON AT BEDSIDE WITH PT.
--- NOTE | 2020-01-16 03:58 | NUR ---
BIOX ALARMING, OXYGEN LEVEL READING IN THE 80'S. PT WOKEN UP AND PLACED ON O2 AT 2L/NC, O2 SAT INCREASED TO 93. SAFETY MEASURES IN PLACE. WILL CONTINUE TO MONITOR.
--- NOTE | 2020-01-16 04:18 | NUR ---
SHIFT SUMMARY HAS RESTED WELL, GOOD INTAKE AND OUTPUT NOTED BEFORE BEING MADE NPO AFTER MN. PAIN MANAGED WITH PO PAIN MEDS PER MD ORDERS. WOUND REDRESSED AND PICTURES TAKEN AND PLACED ON CHART. STILL HAS NOT DECIDED IF HE WANTS TO GET THE BKA VS AKA SCHEDULED FOR THIS MORNING. DENIES FURTHER NEEDS OR WANTS AT THIS TIME. SAFETY MEASURES IN PLACE. WILL GIVE HAND OFF TO ONCOMING SHIFT USING SBAR DURING BEDSIDE REPORT.
[2020-01-16 05:02] LABS: BASOPHILS ABSOLUTE AUTO 0.06 K/mm3 (0.00-0.23); BASOPHILS PERCENT AUTO 1 % (0-2); EOSINOPHILS PERCENT AUTO 6 % (0-6); Hematocrit 31.5 % (37.0-53.0); Hemoglobin 9.7 g/dL (13.5-17.5); IMMATURE GRAN ABSOLUTE AUTO 0.01 K/mm3 (0.00-0.10); IMMATURE GRAN PERCENT AUTO 0 % (0-1); LYMPHOCYTES ABSOLUTE AUTO 1.59 K/mm3 (0.84-5.20); LYMPHOCYTES PERCENT AUTO 23 % (21-46); MONOCYTES ABSOLUTE AUTO 0.68 K/mm3 (0.16-1.47); MONOCYTES PERCENT AUTO 10 % (4-13); Mean Corpuscular HGB 27.8 pg (26.0-34.0); Mean Corpuscular HGB Conc 30.8 g/dL (31.5-36.5); Mean Corpuscular Volume 90 fL (80-100); NEUTROPHILS ABSOLUTE AUTO 4.11 K/mm3 (1.96-9.15); NEUTROPHILS PERCENT AUTO 60 % (41-73); RDW Standard Deviation 48.6 fL (35.1-46.3); Red Blood Cell Count 3.49 M/mm3 (4.30-5.90); White Blood Cell Count 6.85 K/mm3 (4.00-11.30)
[2020-01-16 05:54] LABS: Mean Platelet Volume 9.6 fL (9.1-12.4)
[2020-01-16 06:03] LABS: Platelet Count 318 K/mm3 (150-400)
--- NOTE | 2020-01-16 11:07 | NUR ---
Patient is sitting up in bed and alert. Patient tells me about his medical history, his family unit complications and his struggles with his dana. I listen empathically, explore jain beliefs, and provide grief support, pastoral residential treatment counselor and prayer. Patient responds well and shows signs of restored dana. Patient verbalizes gratitude for the visit. I will continue to remain available to patient and family.
--- NOTE | 2020-01-16 11:30 | NUR ---
PT DECLINING ASSESMENT PT A&O, RESTING IN ROOM. REQUESTING PAIN MEDICATION, OFFERED TYLENOL, PT ACCEPTED REASSESED AND PT REPORTS NO PAIN RELEIF. PT BECAME ANXIOUS WHEN ASKED TO PERFORM SHIFT ASSESMENT AND "PT STATES CAN YOU PLEASE NOT" WILL OFFER BEFORE D/C.
--- NOTE | 2020-01-16 11:48 | NUR ---
PT REFUSES CBG, INSULINE HELD
--- NOTE | 2020-01-16 14:00 | NUR ---
PT A&O, PT ENCOURAGED TO STAY IN HOSPITAL ROOM PRIOR TO DR. ADRIEN LUA, PT INSISTED ON GOING FOR WALK, TALKED WITH PT ABOUT POSSIBLY MISSING DR. RAMIREZ LUA. PT BECAME ANGRY WHEN THIS NURSE TOLD HIM THAT HE MISSED DR. JURADO AND WOULD HAVE TO AWAIT D/C ORDER, PT ENCOURGED FROM LEAVING AMA. D/C INSTRUCTION DISCUSSED AND PT HAD NO [facility] QUESTIONS, INSTRUCTED PT TOTAKE D/C FOLDER WHEN D/C AND PT LEFT ON BS TABLE. NO NEW MEDS SENT TO PHARMACY. PT WILL RESCHDULE SURGERY WITH ORTHOPEDIC AT FURTHUR TIME. PT TAKEN BY W/C TO WAIT FOR RIDE PER PT REQUEST.
== END 2020-01-16 14:22 | disposition home or self-care (01) ==
LOC: SURS 01-15 13:29 → PRE IP 01-15 13:29 → SURS 01-15 15:00
PROVIDERS: ADMIT Orthopaedic Surgery
DX: E11.69 Type 2 diabetes mellitus with other specified complication (principal); M86.9 Osteomyelitis, unspecified; L03.116 Cellulitis of left lower limb; S71.112D Laceration without foreign body, left thigh, subsequent encounter; L02.214 Cutaneous abscess of groin; F17.210 Nicotine dependence, cigarettes, uncomplicated
CPT/HCPCS: 36415; 80048; 82947; 85025; 93005; 93010; A9270; A9270-GY; G0378; J3370

== ENCOUNTER 2020-10-15 01:01 | Day surgery (SDC) | payer OTHER ==
[~2020-10-15 01:01] MED LIST changes: +AMOCLA875 PO; +ASPIR 8181 M1 PO; +FURO20; +Hydrocodone-Ap1 EA23 PO; +INSULIN LI100 UNIT/6; +OXYC10TA19 PO
== END 2020-10-15 23:14 | disposition home or self-care (01) ==
LOC: WOUND 01:01
DX: E11.621 Type 2 diabetes mellitus with foot ulcer (principal); L97.429 Non-pressure chronic ulcer of left heel and midfoot with unspecified severity; E11.622 Type 2 diabetes mellitus with other skin ulcer; L97.829 Non-pressure chronic ulcer of other part of left lower leg with unspecified severity; E11.51 Type 2 diabetes mellitus with diabetic peripheral angiopathy without gangrene; I25.10 Atherosclerotic heart disease of native coronary artery without angina pectoris; E11.42 Type 2 diabetes mellitus with diabetic polyneuropathy; E78.5 Hyperlipidemia, unspecified; N40.0 Benign prostatic hyperplasia without lower urinary tract symptoms; G89.29 Other chronic pain; E03.9 Hypothyroidism, unspecified; M81.0 Age-related osteoporosis without current pathological fracture; F17.210 Nicotine dependence, cigarettes, uncomplicated; I12.0 Hypertensive chronic kidney disease with stage 5 chronic kidney disease or end stage renal disease; E11.22 Type 2 diabetes mellitus with diabetic chronic kidney disease; N18.6 End stage renal disease; Z89.422 Acquired absence of other left toe(s); Z79.82 Long term (current) use of aspirin; Z79.4 Long term (current) use of insulin; Z79.899 Other long term (current) drug therapy; Z95.5 Presence of coronary angioplasty implant and graft; Z89.512 Acquired absence of left leg below knee
CPT/HCPCS: G0463

== ENCOUNTER 2020-10-22 00:44 | Day surgery (SDC) | payer OTHER | END 2020-10-22 23:35 | disposition home or self-care (01) | LOC: WOUND 00:44 | DX: E11.621 Type 2 diabetes mellitus with foot ulcer (principal); L97.522 Non-pressure chronic ulcer of other part of left foot with fat layer exposed; E11.52 Type 2 diabetes mellitus with diabetic peripheral angiopathy with gangrene; I96 Gangrene, not elsewhere classified; E11.42 Type 2 diabetes mellitus with diabetic polyneuropathy; I25.10 Atherosclerotic heart disease of native coronary artery without angina pectoris; E78.5 Hyperlipidemia, unspecified; N40.0 Benign prostatic hyperplasia without lower urinary tract symptoms; G89.29 Other chronic pain; E03.9 Hypothyroidism, unspecified; E11.69 Type 2 diabetes mellitus with other specified complication; M86.8X9 Other osteomyelitis, unspecified sites; M81.0 Age-related osteoporosis without current pathological fracture; F17.200 Nicotine dependence, unspecified, uncomplicated; I12.0 Hypertensive chronic kidney disease with stage 5 chronic kidney disease or end stage renal disease; E11.22 Type 2 diabetes mellitus with diabetic chronic kidney disease; N18.6 End stage renal disease; Z89.432 Acquired absence of left foot; Z79.4 Long term (current) use of insulin; Z79.899 Other long term (current) drug therapy; Z79.82 Long term (current) use of aspirin; Z89.422 Acquired absence of other left toe(s) | CPT/HCPCS: G0463 ==

== ENCOUNTER 2020-11-12 01:34 | Day surgery (SDC) | payer OTHER | END 2020-11-12 23:25 | disposition home or self-care (01) | LOC: WOUND 01:34 | DX: E11.622 Type 2 diabetes mellitus with other skin ulcer (principal); L97.829 Non-pressure chronic ulcer of other part of left lower leg with unspecified severity; T87.89 Other complications of amputation stump; I25.10 Atherosclerotic heart disease of native coronary artery without angina pectoris; I10 Essential (primary) hypertension; E78.5 Hyperlipidemia, unspecified; I73.9 Peripheral vascular disease, unspecified; N40.0 Benign prostatic hyperplasia without lower urinary tract symptoms; E11.42 Type 2 diabetes mellitus with diabetic polyneuropathy; K57.92 Diverticulitis of intestine, part unspecified, without perforation or abscess without bleeding; B19.20 Unspecified viral hepatitis C without hepatic coma; E03.9 Hypothyroidism, unspecified; G89.29 Other chronic pain; F17.200 Nicotine dependence, unspecified, uncomplicated; Z87.310 Personal history of (healed) osteoporosis fracture; Z87.19 Personal history of other diseases of the digestive system; Z86.59 Personal history of other mental and behavioral disorders; Z87.2 Personal history of diseases of the skin and subcutaneous tissue; Z89.512 Acquired absence of left leg below knee; Z95.1 Presence of aortocoronary bypass graft; Z89.422 Acquired absence of other left toe(s); Y83.5 Amputation of limb(s) as the cause of abnormal reaction of the patient, or of later complication, without mention of misadventure at the time of the procedure | CPT/HCPCS: G0463 ==

== ENCOUNTER 2020-11-19 02:10 | Day surgery (SDC) | payer OTHER | END 2020-11-19 23:49 | LOC: WOUND 02:10 | DX: E11.622 Type 2 diabetes mellitus with other skin ulcer (principal); L97.822 Non-pressure chronic ulcer of other part of left lower leg with fat layer exposed; E11.42 Type 2 diabetes mellitus with diabetic polyneuropathy; I25.10 Atherosclerotic heart disease of native coronary artery without angina pectoris; E78.5 Hyperlipidemia, unspecified; G89.29 Other chronic pain; E03.9 Hypothyroidism, unspecified; M81.0 Age-related osteoporosis without current pathological fracture; K57.92 Diverticulitis of intestine, part unspecified, without perforation or abscess without bleeding; B19.20 Unspecified viral hepatitis C without hepatic coma; I10 Essential (primary) hypertension; F17.200 Nicotine dependence, unspecified, uncomplicated; T87.89 Other complications of amputation stump; Z89.512 Acquired absence of left leg below knee; Z98.62 Peripheral vascular angioplasty status; Z79.899 Other long term (current) drug therapy; Z79.4 Long term (current) use of insulin; Z79.82 Long term (current) use of aspirin | CPT/HCPCS: G0463 ==

== ENCOUNTER 2020-11-26 00:29 | Day surgery (SDC) | payer OTHER | END 2020-11-26 22:46 | disposition home or self-care (01) | LOC: WOUND 00:29 | DX: E11.622 Type 2 diabetes mellitus with other skin ulcer (principal); G62.9 Polyneuropathy, unspecified; I73.9 Peripheral vascular disease, unspecified; I25.10 Atherosclerotic heart disease of native coronary artery without angina pectoris; E78.5 Hyperlipidemia, unspecified; E11.51 Type 2 diabetes mellitus with diabetic peripheral angiopathy without gangrene; I10 Essential (primary) hypertension; N40.0 Benign prostatic hyperplasia without lower urinary tract symptoms; E03.9 Hypothyroidism, unspecified; F17.210 Nicotine dependence, cigarettes, uncomplicated | CPT/HCPCS: G0463 ==

== ENCOUNTER 2020-12-10 02:08 | Day surgery (SDC) | payer OTHER | END 2020-12-10 23:45 | disposition home or self-care (01) | LOC: WOUND 02:08 | DX: E11.622 Type 2 diabetes mellitus with other skin ulcer (principal); L97.821 Non-pressure chronic ulcer of other part of left lower leg limited to breakdown of skin; I25.10 Atherosclerotic heart disease of native coronary artery without angina pectoris; E78.5 Hyperlipidemia, unspecified; E11.51 Type 2 diabetes mellitus with diabetic peripheral angiopathy without gangrene; I10 Essential (primary) hypertension; E11.42 Type 2 diabetes mellitus with diabetic polyneuropathy; Z89.512 Acquired absence of left leg below knee; Z95.5 Presence of coronary angioplasty implant and graft | CPT/HCPCS: G0463 ==

== ENCOUNTER 2021-02-15 01:25 | Day surgery (SDC) | payer OTHER | END 2021-02-15 23:14 | disposition home or self-care (01) | LOC: WOUND 01:25 | DX: E11.622 Type 2 diabetes mellitus with other skin ulcer (principal); L97.822 Non-pressure chronic ulcer of other part of left lower leg with fat layer exposed; Z89.512 Acquired absence of left leg below knee | CPT/HCPCS: 87070; 87075; 87077; 87186; 87205; A9270; G0463 ==

== ENCOUNTER 2021-02-22 00:02 | Day surgery (SDC) | payer OTHER | END 2021-02-22 22:52 | disposition home or self-care (01) | LOC: WOUND 00:02 | DX: E11.622 Type 2 diabetes mellitus with other skin ulcer (principal); L97.822 Non-pressure chronic ulcer of other part of left lower leg with fat layer exposed; Z89.512 Acquired absence of left leg below knee | CPT/HCPCS: A9270 ==

== ENCOUNTER 2021-03-23 03:45 | Day surgery (SDC) | payer OTHER | END 2021-03-23 22:51 | disposition home or self-care (01) | LOC: WOUND 03:45 | DX: S88.112A Complete traumatic amputation at level between knee and ankle, left lower leg, initial encounter (principal); X58.XXXA Exposure to other specified factors, initial encounter; E78.5 Hyperlipidemia, unspecified; I25.10 Atherosclerotic heart disease of native coronary artery without angina pectoris; I10 Essential (primary) hypertension; N40.0 Benign prostatic hyperplasia without lower urinary tract symptoms; E11.42 Type 2 diabetes mellitus with diabetic polyneuropathy; E03.9 Hypothyroidism, unspecified; F17.210 Nicotine dependence, cigarettes, uncomplicated; G89.29 Other chronic pain | CPT/HCPCS: G0463 ==

== ENCOUNTER 2021-03-30 03:22 | Day surgery (SDC) | payer OTHER | END 2021-03-30 23:27 | disposition home or self-care (01) | LOC: WOUND 03:22 | DX: S88.112D Complete traumatic amputation at level between knee and ankle, left lower leg, subsequent encounter (principal); X58.XXXD Exposure to other specified factors, subsequent encounter; L97.822 Non-pressure chronic ulcer of other part of left lower leg with fat layer exposed; I10 Essential (primary) hypertension; E78.5 Hyperlipidemia, unspecified; I25.10 Atherosclerotic heart disease of native coronary artery without angina pectoris; E11.42 Type 2 diabetes mellitus with diabetic polyneuropathy; E03.9 Hypothyroidism, unspecified; F17.210 Nicotine dependence, cigarettes, uncomplicated | CPT/HCPCS: G0463 ==

== ENCOUNTER 2021-04-13 02:21 | Day surgery (SDC) | payer OTHER | END 2021-04-13 23:51 | disposition home or self-care (01) | LOC: WOUND 02:21 | DX: E11.622 Type 2 diabetes mellitus with other skin ulcer (principal); L97.822 Non-pressure chronic ulcer of other part of left lower leg with fat layer exposed; S88.112D Complete traumatic amputation at level between knee and ankle, left lower leg, subsequent encounter; X58.XXXD Exposure to other specified factors, subsequent encounter; I25.10 Atherosclerotic heart disease of native coronary artery without angina pectoris; E78.5 Hyperlipidemia, unspecified; I10 Essential (primary) hypertension; E11.42 Type 2 diabetes mellitus with diabetic polyneuropathy; E03.9 Hypothyroidism, unspecified; F17.200 Nicotine dependence, unspecified, uncomplicated | CPT/HCPCS: A9270; G0463 ==

== ENCOUNTER 2021-04-27 04:29 | Day surgery (SDC) | payer OTHER | END 2021-04-27 23:04 | disposition home or self-care (01) | LOC: WOUND 04:29 | DX: S88.112D Complete traumatic amputation at level between knee and ankle, left lower leg, subsequent encounter (principal); X58.XXXD Exposure to other specified factors, subsequent encounter; L97.822 Non-pressure chronic ulcer of other part of left lower leg with fat layer exposed; I25.10 Atherosclerotic heart disease of native coronary artery without angina pectoris; E78.5 Hyperlipidemia, unspecified; I10 Essential (primary) hypertension; E03.9 Hypothyroidism, unspecified | CPT/HCPCS: G0463 ==